=== PATIENT | female | born 1955 | race Caucasian/White ===

== ENCOUNTER → 2018-03-23 | Outpatient (REF) | payer MEDICARE ==
[2018-03-23 13:47] LABS: C REACTIVE PROTEIN QUANTITATIV 1.14 MG/DL (0.00-0.30)
== END ==
LOC: M LAB REF 12:27
DX: K51.913 Ulcerative colitis, unspecified with fistula (principal); K21.9 Gastro-esophageal reflux disease without esophagitis; R13.10 Dysphagia, unspecified
CPT/HCPCS: 86140

== ENCOUNTER → 2018-04-13 | Outpatient (CLI) | payer MEDICARE | LOC: M WHC 11:20 | DX: Z12.31 Encounter for screening mammogram for malignant neoplasm of breast (principal) | CPT/HCPCS: 77067 ==

== ENCOUNTER → 2018-09-12 | Outpatient (REF) | payer MEDICARE ==
[2018-09-12 12:43] LABS: DRVV SCREEN 39.3 SEC
[2018-09-14 00:06] LABS: CARDIOLIPIN IGA ANTIBODY <9 APL U/mL (0-11); CARDIOLIPIN IGG ANTIBODY <9 GPL U/mL (0-14); CARDIOLIPIN IGM ANTIBODY <9 MPL U/mL (0-12); HOMOCYST(E)INE SERUM 8.6 umol/L (0.0-15.0)
[2018-09-14 08:07] LABS: ANTI THROMBIN 3 FUNCT ACTIVITY 109 % (75-135); PROTEIN C FUNCTIONAL ACTIVITY 160 % (73-180); PROTEIN S FUNCTIONAL ACTIVITY 97 % (63-140)
== END ==
LOC: M LAB REF 12:07
PROVIDERS: ATTEND Nurse Practitioner Adult Health
DX: M79.661 Pain in right lower leg (principal); R60.0 Localized edema

== ENCOUNTER → 2018-12-26 | Outpatient (REF) | payer MEDICARE | LOC: M LAB REF 19:12 | PROVIDERS: ATTEND Physician Assistant Medical | DX: M54.5 Low back pain (principal) ==

== ENCOUNTER → 2019-02-26 | Outpatient (REF) | payer MEDICARE ==
[~2019-02-26] MED LIST: ACET-897 PO; ALL10TAB29 PO; AMLO5TAB6 PO; ASPI-1 PO; ASPI81TA85 PO; ATOR1TAB19 PO; ATOR40TA75 PO; CETI5CHW PO; D 101000 PO; ELIQ5TAB PO; FURO20TA2; LISI10TA15 PO; LISI20TA19 PO; OMEP-218 PO; PROAAER10 INH; PROBCAP14 PO; SULF500T2 PO; VITA100066 PO; VITA500C24 PO; XANA0.25 PO
== END ==
LOC: M LAB REF 13:16
PROVIDERS: ATTEND Family Medicine
DX: K51.90 Ulcerative colitis, unspecified, without complications (principal)

== ENCOUNTER → 2019-05-21 | Outpatient (REF) | payer MEDICARE ==
[2019-05-21 13:00] LABS: TOTAL 25(OH) VITAMIN D 35.4 NG/ML (30.0-100.0)
== END ==
LOC: M LAB REF 12:24
PROVIDERS: ATTEND Family Medicine
DX: K21.9 Gastro-esophageal reflux disease without esophagitis (principal); E55.9 Vitamin D deficiency, unspecified; K51.913 Ulcerative colitis, unspecified with fistula

== ENCOUNTER → 2019-06-11 | Outpatient (CLI) | payer MEDICARE ==
[~2019-06-11] MED LIST changes: -AMLO5TAB6 PO; -PROBCAP14 PO; -VITA100066 PO; -VITA500C24 PO; -XANA0.25 PO
--- NOTE | 2019-06-11 13:42 | REPMRS ---
Patient History The patient states she has not had a clinical breast exam in over a year. Family history of colorectal cancer at age 60 in paternal grandfather. Took hormonal contraceptives for 2 years. 3D TOMOSYNTHESIS WAS PERFORMED. [facility] lifetime risk for breast cancer is 6.8%. Digital Woman Screen Mammo: June 11, 2019 - Exam #: [id number] Bilateral CC and MLO view(s) were taken. Technologist: Denise Goldstein, Technologist Prior study comparison: April 13, 2018, bilateral digital woman screen mammo performed at [facility] [place]. March 09, 2016, digital woman screen mammo performed at [facility] [place]. FINDINGS: There are scattered fibroglandular densities. There has been no change in the appearance of the mammogram from the prior studies. There is a mild amount of residual fibroglandular tissue which is fairly symmetric. There is no interval development of dominant mass, architectural distortion, or clustered microcalcification suggestive of malignancy. Assessment: BI-RADS/ACR category 1 mammogram. Negative Mammogram. Recommendation Routine screening mammogram in 1 year (for women over age 40). This mammogram was interpreted with the aid of an FDA-approved computer-aided dectection system. Electronically Signed By: Emilio Slade MD 06/11/19 [id number]
== END ==
LOC: M WHC 12:22
PROVIDERS: ATTEND Family Medicine
DX: Z12.31 Encounter for screening mammogram for malignant neoplasm of breast (principal); Z92.0 Personal history of contraception

== ENCOUNTER 2019-06-12 11:17 | Inpatient (IN) | payer MEDICARE ==
[~2019-06-12] VITALS: Ht 157.5 cm; Wt 88.2 kg
--- NOTE | 2019-06-12 12:07 | REP ---
CT brain: 06/12/2019. Indication: Stroke. Comparison: None. Technique: Unenhanced axial CT images of the brain were obtained from skull base to vertex. Findings: There is no acute intracranial hemorrhage, acute cortical infarction, mass effect or hydrocephalous. Left parietal lobe hypoattenuation/encephalomalacia is present consistent with a remote infarction. Impression: No acute intracranial process. Remote appearing left parietal infarction. Electronically Signed by Zack Clements DO 06/12/2019 11:58 A
[2019-06-12] MEDS ORDERED: ELIQ5TAB PO (12:17)
[2019-06-12] MEDS ORDERED: OMEP-218 PO (12:17)
[2019-06-12] MEDS ORDERED: SULF500T2 PO ×2 (12:17→13:28)
[2019-06-12] MEDS ORDERED: ASPI81TA85 PO (12:17)
[2019-06-12] MEDS ORDERED: LISI10TA15 PO (12:17)
[2019-06-12] MEDS ORDERED: FURO20TA2 (12:17)
[2019-06-12] MEDS ORDERED: CETI5CHW PO (12:17)
[2019-06-12] MEDS ORDERED: PROAAER10 INH (12:17)
[2019-06-12] MEDS ORDERED: ATOR1TAB19 PO (12:17)
[2019-06-12] MEDS ORDERED: D 101000 PO (12:17)
[2019-06-12] MEDS ORDERED: LABETALOL HCL 100 MG/20 ML VIAL IV STA ×2 (12:54→17:57)
[2019-06-12] MEDS ORDERED: ACET-897 PO (13:28)
[2019-06-12] MEDS ORDERED: ALL10TAB29 PO (13:28)
[2019-06-12 13:35] LABS: BASO % 0.4 % (0.0-1.0); EOS # 0.1 10^3/uL (0.0-0.5); EOS % 1.4 % (0.0-3.0); HEMATOCRIT 44.8 % (36.0-47.0); HEMOGLOBIN 14.3 g/dl (12.0-15.5); LYMPH # 1.5 10^3/uL (1.5-5.0); LYMPH % 19.5 % (24.0-44.0); MEAN CORPUSCULAR HGB CONC 31.9 g/dl (32.0-36.5); MEAN CORPUSCULAR VOLUME 87.8 fl (80.0-96.0); MONO # 0.8 10^3/uL (0.0-0.8); MONO % 10.4 % (0.0-5.0); NEUTROPHILS # 5.3 10^3/uL (1.5-8.5); NEUTROPHILS % 67.9 % (36.0-66.0); PLATELET COUNT, AUTOMATED 208 10^3/uL (150-450); WHITE BLOOD COUNT 7.8 10^3/uL (4.0-10.0)
--- NOTE | 2019-06-12 13:38 | REP ---
CHEST, SINGLE VIEW: There is no evidence of acute infiltrate. No pleural effusion is seen. The heart is normal in size. The mediastinal silhouette is unremarkable. The visualized osseous structures are intact. IMPRESSION: No acute pulmonary disease. Electronically Signed by Emilio Slade MD 06/12/2019 04:58 P
[2019-06-12 14:15] LABS: ALT/SGPT 38 U/L (12-78); BILIRUBIN,DIRECT 0.1 MG/DL (0.0-0.2); BILIRUBIN,TOTAL 0.6 MG/DL (0.2-1.0); BLOOD UREA NITROGEN 15 MG/DL (7-18); CALCIUM LEVEL 9.8 MG/DL (8.8-10.2); CARBON DIOXIDE LEVEL 28 MEQ/L (21-32); CHLORIDE LEVEL 101 MEQ/L (98-107); CPK CREATINE PHOSPHOKINASE 136 U/L (26-192); CREATININE FOR GFR 0.81 MG/DL (0.55-1.30); GLOMERULAR FILTRATION RATE > 60.0 (>45); GLUCOSE, FASTING 99 MG/DL (70-100); MB/CK RELATIVE INDEX 0.74 (< OR =4); POTASSIUM SERUM 4.3 MEQ/L (3.5-5.1); SODIUM LEVEL 139 MEQ/L (136-145); TOTAL PROTEIN 8.4 GM/DL (6.4-8.2); TROPONIN I < 0.02 NG/ML (< 0.10)
[2019-06-12] MEDS ORDERED: ATORVASTATIN 20 MG TAB PO ONE (15:45)
[2019-06-12] MEDS ORDERED: ASPIRIN 81 MG CHEW TABLET PO ONE (15:45)
[2019-06-12] MEDS ORDERED: METOPROLOL TART 25 MG TABLET PO PRN (16:00)
[2019-06-12] MEDS ORDERED: MOM 30ML SUSPENSION UDC PO PRN (16:00)
[2019-06-12 16:12] LABS: INR 1.17; PARTIAL THROMBOPLASTIN TIME 28.3 SECONDS (25.0-38.4); PROTHROMBIN TIME 14.6 SECONDS (11.8-14.0)
--- NOTE | 2019-06-12 17:15 | ECGEPIP ---
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
[2019-06-12] MEDS ORDERED: PROHANCE 279.3MG/ML 15ML VIAL (A9576) As Ordered ONE (17:21)
[2019-06-12] MEDS ORDERED: PROHANCE 279.3MG/ML 5ML VIAL (A9576) As Ordered ONE (17:21)
[2019-06-12 18:00] VITALS: BP 182/96
--- NOTE | 2019-06-12 18:44 | HPEPDOC ---
General Date of Admission Jun 12, 2019 at 16:10 Date of Service: Jun 12, 2019 Primary Care Physician: JOSE ARMANDO WILKINS M.D. Other Providers GI: Lizeth Lancaster Attending Physician: STEW GOODMAN MD Chief Complaint The patient is a 63-year-old female admitted with a reason for visit of CVA. History of Present Illness HPI: 63-year-old female presents to the ER with her son and boyfriend in the room. 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 We have no prior records to further clarify this. She reports feeling lower extremity weakness that began after shoveling yesterday around 10 AM, along with pounding suboccipital headache. Per her family, she also had some slurred speech and difficulty finding words and felt numbness in all limbs, extending from home the elbows down and mid calf statin. She reports taking an extra blood pressure pill hoping this would help and went to bed. She awoke the next morning with continued symptoms and now presents to the ER. She reports her symptoms are intermittent without any aggravating or alleviating factors. Denies any similar symptoms in the past. Of note, she does report a recent long immobilization for about 9 hours last month for a trip to [place]. Otherwise, denies any other prolonged immobilizations, recent illnesses, sick contacts, changes in meds. Denies and chest pain, shortness of breath, fevers, chills. In the ER, CT of head revealed a remote left parietal infarct. NIHSS score on admission is 1: mild left arm pronator drift. Also was noted to have significantly elevated blood pressure of 225/98 with mental 140 on admission. She was given 1 dose labetalol, after which she improved. She will be admitted for further workup for possible stroke and hypertensive emergency management. 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 Admits blurred vision, increased drool, suboccipital headache Skin: Denies any rashes or lesions Pulmonary: Denies dyspnea, cough, wheezing Cardiac: Denies chest pain, palpitations, lightheadedness GI: Denies nausea, vomiting, abdominal pain, bowel changes MSK: Denies new pains or joint swelling. Admits b/l LE weakness Neurologic: Admits dysarthria, difficulty word-finding, numbness in all extremities, slurred speech. Denies facial droop, confusion, or visual loss PHYSICAL: General exam: A&Ox3, NAD, resting comfortably, fully conversant HEENT: NCAT, EOMI, PERRLA, anicteric sclera, MMM. Nystagmus right eye, mild strabismus Cardiac: RRR, normal S1 & S2, no murmurs or bruits Respiratory: CTAB, good air exchange, no w/r/r Abdomen: soft, NT, ND, normoactive bowel sounds Extremity: 2+ radial pulse on left, diminshed on right. 2+ b/l dorsalis pedis pulses, no edema or calf tenderness Skin: [place]rober[place], warm, dry, no visible rash Msk: strength 5/5 x4, normal tone & rn hemodialysis charge strength Neuro: normal speech, minimal left arm pronator drift and questionable left tongue deviation. Motor & sensation intact & equal throughout. No facial droop or appreciable slurring of speech. Remainder exam all negative: nml finger to nose, no dysdiadochokinesia, negative Babinski. Nml tandem gait. Negative Romberg. Psych: Normal mood and affect LABORATORY DATA, MICROBIOLOGY: Please see below. IMAGING STUDIES: Head CT: No acute intracranial process. Remote appearing left parietal infarction. CXR: No acute pulmonary disease. ASSESSMENT AND PLAN: This is a 63-year old female with hyperlipidemia, hypertension, history of questionable DVTs and stent in right arm for questionable aneurysm, chronically on Eliquis, ASA 81mg, and low dose statin, p resenting for numbness in all extremities and subjective slurred speech, blurred vision, LE weakness, found to have remote left parietal infarct on CT. 1. ?TIA vs CVA: pt reports neurological symptoms as above, and paresthesia in all limbs. CT notes remote left parietal infarct. Pt has strong family hx of stroke, and denies ever having neurologic issues herself in the past. Despite chronic anticoagulation, still appears to have had a stroke-questionable if this is truly a new event that would explain her current symptoms. Hypercoagulable w/u ordered. MRI/MRA brain & carotids, & echo pending. In meanwhile, monitor neuro checks. Neuro consulted, appreciat input: if indeed an acute stroke, will allow permissive hypertension with systolic 140s to 180s, diastolic below 110. If imaging is negative, will discontinue permissive hypertension, and gradually decrease blood pressure throughout the night. Pending these imaging results, patient may require high-dose aspirin. Statin dose increased. Work with PT & OT for functional optimization. 2. Hypertensive emergency: Patient presented with SBP greater than 200, diastolic greater than 110. Her symptoms may be related to this. Responded well to 10 mg IV labetalol in the ER. Continue monitoring. She is only on lisinopril- hydrochlorothiazide at home, which is continued, and prn po Labetalol added to maintain sbp<180. Likely will require uptitration of regimen. Monitor on tele. 3. ?Hx of DVT & reported stent in the right arm for aneurysm: Continue Eliquis. Pt unsure why she is on it. Will attempt to obtain her [place] records. 4. GERD: Continue PPI 5. Obesity: BMI 35, case care 6. Hyperlipidemia: See aspirin and statin adjustment as above DVT prophylaxis: Chronically on Eliquis DISPOSITION: Admit to general medical floor on hospitalist service. Monitor neuro status and blood pressure. PT & OT. Home Medications Scheduled Apixaban (Eliquis) 5 Mg Tablet, 5 MG PO BID, (Reported) Aspirin (Aspir 81) 81 Mg Tablet.dr, 81 MG PO DAILY, (Reported) Atorvastatin Calcium (Atorvastatin Calcium) 10 Mg Tablet, 10 MG PO DAILY, (Reported) Cetirizine HCl (Cetirizine HCl) 10 Mg Tablet, 5 MG PO DAILY, (Reported) Cholecalciferol (Vitamin D3) (Vitamin D3) 1,000 Unit Capsule, 1,000 UNIT PO DAILY, (Reported) Lisinopril/Hydrochlorothiazide (Lisinopril-Hctz 10-12.5 mg Tab) 1 Each Tablet, 1 TAB PO DAILY, (Reported) Omeprazole (Omeprazole) 20 Mg Capsule., 20 MG PO DAILY, (Reported) Sulfasalazine (Sulfasalazine) 500 Mg Tablet, 500 MG PO DAILY, (Reported) Scheduled PRN Acetaminophen (Tylenol Extra Strength) 500 Mg Tablet, 1,000 MG PO TID PRN for PAIN, (Reported) Albuterol Sulfate (Proair Hfa) 8.5 Gm Hfa.aer.ad, 2 PUFF INH Q6H PRN for SHORTNESS OF BREATH, (Reported) Sulfasalazine (Sulfasalazine) 500 Mg Tablet, 1,000 MG PO TID PRN for FLARE UP, (Reported) Allergies Coded Allergies: Penicillins (Verified Allergy, Unknown, 06/12/19) bee venom protein (honey bee) (Verified Allergy, Unknown, 06/12/19) A-FIB/CHADSVASC A-FIB History Current/History of A-Fib/PAF?: No Current PO Anticoag Therapy: Yes Vital Signs Vital Signs Date Time Temp Pulse Resp B/P (MAP) Pulse Ox O2 Delivery O2 Flow Rate FiO2 06/12/19 17:19 97.3 79 16 204/89 (127) 98 Room Air Laboratory Data Labs 24H Laboratory Tests 2 06/12/19 12:30: Prothrombin Time 14.6H, Prothromb Time International Ratio 1.17, Activated Partial Thromboplast Time 28.3 06/12/19 13:08: Immature Granulocyte % (Auto) 0.4, Neutrophils (%) (Auto) 67.9H, Lymphocytes (%) (Auto) 19.5L, Monocytes (%) (Auto) 10.4H, Eosinophils (%) (Auto) 1.4, Basophils (%) (Auto) 0.4, Neutrophils # (Auto) 5.3, Lymphocytes # (Auto) 1.5, Monocytes # (Auto) 0.8, Eosinophils # (Auto) 0.1, Basophils # (Auto) 0.0, Nucleated Red Blood Cells % (auto) 0.0, Urine Color YELLOW, Urine Appearance CLEAR, Urine pH 7.0, Urine Specific [place] 1.008, Urine Protein NEGATIVE, Urine Glucose (UA) NEGATIVE, Urine Ketones NEGATIVE, Urine Blood NEGATIVE, Urine Nitrite NEGATIVE, Urine Bilirubin NEGATIVE, Urine Urobilinogen 0.2, Urine Leukocyte Esterase NEGATIVE, Urine WBC (Auto) 1, Urine RBC (Auto) 0, Urine Hyaline Casts (Auto) 0, Urine Bacteria (Auto) NEGATIVE, Urine Squamous Epithelial Cells 2, Urine Mucus (Auto) SMALL, Urine Sperm (Auto) , Anion Gap 10, Glomerular Filtration Rate > 60.0, Calcium Level 9.8, Total Bilirubin 0.6, Direct Bilirubin 0.1, Aspartate Amino Transf (AST/SGOT) 34, Alanine Aminotransferase (ALT/SGPT) 38, Alkaline Phosphatase 88, Total Creatine Kinase 136, Creatine Kinase MB 1.0, Creatine Kinase MB Relative Index 0.74, Troponin I < 0.02, Total Protein 8.4H, Albumin 4.0, Albumin/Globulin Ratio 0.91L, Thyroid Stimulating Hormone (TSH) 1.950 CBC/BMP Laboratory Tests 06/12/19 13:08 Plan / VTE VTE Prophylaxis Ordered?: Yes GME ATTESTATION GME ATTESTATION My faculty preceptor for this patient encounter was physically present during the encounter and was fully available. All aspects of the patient interview, examination, medical decision making process, and medical care plan development were reviewed and approved by the faculty preceptor. The faculty preceptor is aware and concurs with the plan as stated in the body of this note and will attest to such by his/her cosignature. ATTENDING NOTE I, Stew Goodman, have independently examined this patient and performed my own physical exam, as well as reviewed the documentation and edited where necessary. I have discussed in detail with the resident / student the findings and plan of treatment as documented by the resident / student and edited their note. I agree with their findings and treatment plan and have edited their documentation. I will continue to follow the patient during this hospital stay. DINAH GUTIERREZ DO Jun 12, 2019 18:44 STEW GOODMAN MD Jun 12, 2019 18:52
--- NOTE | 2019-06-12 18:51 | REPVR ---
PROCEDURE INFORMATION: Exam: MR Angiography Neck Without and With Contrast Exam date and time: 06/12/2019 4:35 PM Age: 63 years old Clinical history: Speech disturbance; Type not specified; Prior surgery; Surgery date: 6+ months; Surgery type: Per PT, stent was placed in RT subclavian, PT could not provide complete history; Additional info: CVA TECHNIQUE: Imaging protocol: Magnetic resonance angiography of the neck without and with intravenous contrast. 3D rendering: MIP reconstructed images were created and reviewed. Contrast material: PROHANCE; Contrast volume: 25 ml; Contrast route: IV; COMPARISON: MRA BRAIN WITH CONTRAST 06/12/2019 5:30 PM FINDINGS: Right common carotid artery: The origin of the right common carotid artery is not visualized, possibly artifactual. The remaining right common carotid artery appears unremarkable. Right internal carotid artery: There is approximately 25% stenosis of the proximal right ICA. Right external carotid artery: Unremarkable. No stenosis. No dissection or occlusion of the origin. Right vertebral artery: The right vertebral artery is congenitally hypoplastic the patent. Left common carotid artery: Unremarkable. No stenosis. No dissection or occlusion. Left internal carotid artery: Unremarkable extracranial segment. No stenosis. No dissection or occlusion. Left external carotid artery: Unremarkable. No stenosis. No dissection or occlusion of the origin. Left vertebral artery: Unremarkable. No stenosis. No dissection or occlusion. Brachiocephalic artery: A portion of the right brachiocephalic artery is not visualized, probably artifactual. The right subclavian artery is patent. IMPRESSION: Approximately 25% stenosis of the proximal right ICA COMMENT: Reference per NASCET criteria for degree of stenosis: Mild: less than 50% stenosis. Moderate: 50-69% stenosis. Severe: 70-94% stenosis. Near occlusion: 95-99% stenosis. Electronically signed by: Ty José On 06/12/2019 18:50:52 PM
--- NOTE | 2019-06-12 18:54 | REPVR ---
PROCEDURE INFORMATION: Exam: MR Angiogram Head Without Contrast, Arteries Exam date and time: 06/12/2019 3:36 PM Age: 63 years old Clinical history: Speech disturbance; Type not specified; Patient HX: HX CVA; Additional info: Neuro SX, infarct on CT TECHNIQUE: Imaging protocol: MR angiogram head without contrast. Exam focused on the arteries. COMPARISON: CT Head without contrast 06/12/2019 11:26 AM FINDINGS: Right internal carotid artery: Intracranial segment is patent with no significant stenosis. No aneurysm. Right anterior cerebral artery: No occlusion or significant stenosis. No aneurysm. Right middle cerebral artery: No occlusion or significant stenosis. No aneurysm. Right posterior cerebral artery: There is persistent origin of the right posterior cerebral artery. Right vertebral artery: The distal right vertebral artery is congenitally hypoplastic but patent. Left internal carotid artery: Intracranial segment is patent with no significant stenosis. No aneurysm. Left anterior cerebral artery: No occlusion or significant stenosis. No aneurysm. Left middle cerebral artery: No occlusion or significant stenosis. No aneurysm. Left posterior cerebral artery: No occlusion or significant stenosis. No aneurysm. Left vertebral artery: No occlusion or significant stenosis. No aneurysm. Basilar artery: No occlusion or significant stenosis. No aneurysm. IMPRESSION: No acute abnormality. Electronically signed by: Ty José On 06/12/2019 18:53:43 PM
--- NOTE | 2019-06-12 18:56 | REPVR ---
PROCEDURE INFORMATION: Exam: MR Head Without Contrast Exam date and time: 06/12/2019 3:36 PM Age: 63 years old Clinical history: Speech disturbance; Unspecified; Patient HX: HX CVA; Additional info: Neuro SX, infarct on CT TECHNIQUE: Imaging protocol: MR of the head without contrast. COMPARISON: CT Head without contrast 06/12/2019 11:26 AM FINDINGS: Brain: There are several small foci of restricted diffusion within the right frontal and parietal lobes. Corresponding decreased signal on the ADC map is present, compatible with acute/subacute infarcts. A chronic left temporo-occipital infarct is present. Minor hemosiderin deposition is noted within the encephalomalacia. There is no acute intracranial hemorrhage, cerebral edema, or midline shift. Age-related cerebral and cerebellar substance loss is present. Scattered increased T2 and FLAIR signal within the pericallosal, periventricular and subcortical white matter is present. This is nonspecific but likely related to chronic microangiopathic ischemic changes and/or chronic demyelinating disease. Ventricles: Mild ex vacuo dilation of the lateral and third ventricles is noted. Bones/joints: Unremarkable. Soft tissues: Unremarkable. Sinuses: Normal as visualized. No acute sinusitis. Mastoid air cells: Normal as visualized. No mastoid effusion. Orbits: Unremarkable. IMPRESSION: 1. Several small acute/subacute infarcts in the right frontal and parietal lobes 2. Chronic findings as discussed above. Electronically signed by: Ty José On 06/12/2019 18:55:54 PM
[2019-06-12] MEDS: APIXABAN 5 MG TAB (ELIQUIS) PO SCH (20:18)
[2019-06-12 22:00] VITALS: BP 131/68
[2019-06-12] MEDS: ACETAMINOPHEN TAB 650MG DOSE (2X325MG) PO PRN (23:58)
[2019-06-13] VITALS (9 sets, daily range): BP systolic 126–170; BP diastolic 62–90
[2019-06-13] MEDS: ACETAMINOPHEN TAB 650MG DOSE (2X325MG) PO PRN ×3 (05:38→21:20)
[2019-06-13 06:52] LABS: HEMATOCRIT 40.5 % (36.0-47.0); HEMOGLOBIN 12.8 g/dl (12.0-15.5); MEAN CORPUSCULAR HEMOGLOBIN 27.9 pg (27.0-33.0); MEAN CORPUSCULAR HGB CONC 31.6 g/dl (32.0-36.5); MEAN CORPUSCULAR VOLUME 88.2 fl (80.0-96.0); PLATELET COUNT, AUTOMATED 193 10^3/uL (150-450); RED BLOOD COUNT 4.59 10^6/uL (4.00-5.40); WHITE BLOOD COUNT 6.7 10^3/uL (4.0-10.0)
[2019-06-13 07:15] LABS: ERYTHROCYTE SEDIMENTATION RATE 14 mm/hr (0-30)
[2019-06-13 07:31] LABS: BLOOD UREA NITROGEN 17 MG/DL (7-18); C REACTIVE PROTEIN QUANTITATIV 0.71 MG/DL (0.00-0.30); CALCIUM LEVEL 9.2 MG/DL (8.8-10.2); CARBON DIOXIDE LEVEL 31 MEQ/L (21-32); CHLORIDE LEVEL 103 MEQ/L (98-107); CHOLESTEROL LEVEL 161 MG/DL (<200); CHOLESTEROL RISK RATIO 3.037 (<5); CREATININE FOR GFR 0.84 MG/DL (0.55-1.30); GLOMERULAR FILTRATION RATE > 60.0 (>45); GLUCOSE, FASTING 122 MG/DL (70-100); HDL CHOLESTEROL 53 MG/DL (>40); LDL CHOLESTEROL 87 MG/DL (<100); NON-HDL-C 108 MG/DL; POTASSIUM SERUM 3.8 MEQ/L (3.5-5.1); SODIUM LEVEL 140 MEQ/L (136-145); TRIGLYCERIDES LEVEL 106 MG/DL (<150)
[2019-06-13] MEDS: OMEPRAZOLE 20 MG CAP PO SCH (08:37)
[2019-06-13] MEDS: hydroCHLOROthiazide 12.5 MG CAPSULE PO SCH ×2 (08:37→10:57)
[2019-06-13] MEDS: APIXABAN 5 MG TAB (ELIQUIS) PO SCH ×2 (08:37→21:13)
[2019-06-13] MEDS: ASPIRIN 325 MG TAB PO SCH (08:37)
[2019-06-13] MEDS: LISINOPRIL 10 MG TAB PO SCH ×2 (08:38→10:57)
[2019-06-13] MEDS ORDERED: CETIRIZINE (ZyrTEC) 5 MG/5 ML UDC DYE FREE PO SCH (09:00)
[2019-06-13] MEDS ORDERED: ASPIRIN 81 MG ENTERIC TAB PO SCH (09:00)
--- NOTE | 2019-06-13 09:26 | CR ---
DATE OF CONSULTATION: 06/13/2019 REFERRING PROVIDER: Dr. Stew Goodman. REASON FOR CONSULTATION: Suspected stroke. The patient is a 63-year-old female with past medical history significant for hypertension, hyperlipidemia, history of ulcerative colitis. The patient was out shoveling, suddenly had symptoms of weakness in her legs and slurred speech. The symptoms were intermittent. The patient was brought to the hospital. The symptoms occurred yesterday. The patient, at the present time was not noted to have a focal neurological deficit. Head CT was reported to show an old left parietal cortical infarct. MRI of the brain has been completed which shows multiple areas of acute to subacute ischemic strokes involving the frontal lobe particular on the right. The patient at home at baseline takes 81 mg of aspirin and also takes Eliquis 5 mg twice a day for an underlying clotting disorder. The patient has a stent her right upper extremity and have history of deep venous thrombosis (DVT) in both lower extremities. The patient does not know much history regarding when the DVT occurred. Prior hypercoagulable workup completed revealed normal protein C, protein S activity as well as negative gene mutations for Factor V and Factor II genes tested. The patient will need the rest of the hypercoagulable workup completed and will need vasculitic workup completed. She remained on Lipitor but we will increase the dose from 10-40 mg daily. The patient will remain on telemetry. Will get MR angiogram of the head and carotids completed as well. The patient did complain of a severe suboccipital intense headache around the time that the symptoms started. Will rule out any dissection. Next the patient was describing a paresthesia in a stocking-glove distribution of the arms and legs, which were intermittent with blurred vision on the right eye intermittently as well. Symptoms started yesterday around 10:00 a.m. REVIEW OF SYSTEMS: 14-point review of systems obtained and is negative except as in the history of present illness (HPI). SOCIAL HISTORY: The patient denies use of any tobacco or illicit drugs and drinks alcohol socially. FAMILY HISTORY: Positive for maternal grandmother and maternal uncle with stroke and multiple family members including sister at the age of 46 with stroke. The patient's blood pressure upon arrival to the hospital was 225/98, which is improved. ALLERGIES: PENICILLIN, bee sting venom. HOME MEDICATIONS: - aspirin 81 mg daily - Lipitor 10 mg daily - Eliquis 5 mg by mouth twice a day. PHYSICAL EXAMINATION: Blood pressure is 178/125, pulse rate 71, respiratory rate is 16, temperature is 98.5 degrees Fahrenheit, oxygenation 98% on room air. The patient is awake, alert, oriented to person, place and time. Speech language comprehension and repetition are intact. Pupils are 3 mm round and reactive to light. Extraocular movements are intact without nystagmus. Sensation V1, V2, V3 is intact to light touch. No facial asymmetry with activation decreased finger particular on the right side. There is no weakness of sternocleidomastoids. Tongue is midline. There is no pronator drift. Strength is 5/5 including bilateral deltoids, biceps, triceps, iliopsoas, quadriceps, anterior tibialis. Deep tendon reflexes are 3s of patellas, 2s at the Achilles, 2s in the upper extremities. Babinski signs are absent. Coordination without any gross ataxia, dysmetria. Gait deferred. ASSESSMENT: MRI evidence of acute subacute strokes in the setting of use of low-dose 81 mg aspirin and Eliquis. PLAN: 1. Continue telemetry monitoring. 2. Physical therapy (PT) and occupational therapy (OT). 3. Agree with increased dose of Lipitor 40 mg daily. Agree with increased dose of aspirin to 325 mg daily. Continuation of Eliquis 5 mg twice a day. 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 Allow for permissive hypertension for the next 48 hours with systolic range between 140-180. 4. The patient can followup in the [facility] outpatient clinic 2-4 weeks after discharge.
[2019-06-13] MEDS ORDERED: PILL CUTTER 1 EACH XX PRN (11:00)
[2019-06-13] MEDS: CETIRIZINE (ZyrTEC) 10 MG TAB PO SCH (11:02)
--- NOTE | 2019-06-13 14:41 | IPNPDOC ---
Text Note Date of Service The patient was seen on 06/13/19. NOTE S: Pt examined at bedside. Reports she feels much better today. Still having mild blurred vision in the right eye and paresthesias in the right hand fingertips. Reports her slurred speech and remaining paresthesias have resolved. Still having a mild suboccipital headache. No reported events overnight. Her blood pressure remains in tolerable range. She has no other complaints today and is looking forward to PT/OT. PE: Vitals: see below General: NAD, A&Ox3, resting comfortably HEENT: NCAT, EOMI, PERRLA, anicteric sclera, MMM. Adenopathy left cervical and supraclavicular chain CV: RRR, no murmurs or clicks or rub. No edema RESP: CTAB, no w/r/r/ ABD: soft, NT, ND. Benign Extremity: 2+ radial pulse on left, diminished on right. 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 Motor & sensation intact & equal throughout. No facial droop or appreciable slurring of speech. 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 1. CVA: MRI of brain revealed several small acute/subacute infarcts in the right frontal and parietal lobes. MRA found only 25% stenosis in the proximal right ICA. Neuro following, appreciate input. Patient feels much improved today with almost full resolution of her symptoms. Neuro checks thus far have been negative. Echo is currently pending as well as hypercoagulable workup. Continue permissive hypertension goal systolic 140s to 180s, diastolic below 110 for 48 hours , then will adjust regimen to further reduce BP. Continue high-dose aspirin and statin. 2. Hypertensive urgency: Managed BP as above 3. ?Hx of DVT & reported stent in the right arm for aneurysm: Continue Eliquis. Pt unsure why she is on it. Awaiting to obtain her [place] records 4. Left neck adenopathy: Patient reports she is in process of working this up with her PCP. Currently otherwise asymptomatic. Unlikely related to her stroke, especially in light of imaging reports. Continue outpatient follow-up For her remaining chronic medical conditions, no changes made. DVT ppx: chronically Eliquis DISPO: work with PT/OT. Monitor on tele & improve bp. Likely d/c home tomorrow. VS,Fishbone, I+O VS, Fishbone, I+O Laboratory Tests 06/12/19 13:08 06/13/19 06:26 Vital Signs Date Time Temp Pulse Resp B/P (MAP) Pulse Ox O2 Delivery O2 Flow Rate FiO2 06/13/19 06:00 97.5 71 19 147/75 (99) 95 Room Air I&O- Last 24 Hours up to 6 AM 06/13/19 06:00 Intake Total 600 ml Output Total 175 ml Balance 425 ml GME ATTESTATION GME ATTESTATION My faculty preceptor for this patient encounter was physically present during the encounter and was fully available. All aspects of the patient interview, examination, medical decision making process, and medical care plan development were reviewed and approved by the faculty preceptor. The faculty preceptor is aware and concurs with the plan as stated in the body of this note and will attest to such by his/her cosignature. ATTENDING NOTE I, Stew Mendez, have independently examined this patient and performed my own physical exam, as well as reviewed the documentation and edited where necessary. I have discussed in detail with the resident / student the findings and plan of treatment as documented by the resident / student and edited their note. I agree with their findings and treatment plan and have edited their documentation. I will continue to follow the patient during this hospital stay. DINAH GUTIERREZ DO Jun 13, 2019 10:40 STEW MENDEZ MD Jun 13, 2019 15:59
[2019-06-14 02:00] VITALS: BP 170/80
[2019-06-14 06:00] VITALS: BP 168/78
[2019-06-14 06:09] LABS: HEMATOCRIT 39.2 % (36.0-47.0); HEMOGLOBIN 12.9 g/dl (12.0-15.5); MEAN CORPUSCULAR HEMOGLOBIN 28.5 pg (27.0-33.0); MEAN CORPUSCULAR HGB CONC 32.9 g/dl (32.0-36.5); MEAN CORPUSCULAR VOLUME 86.7 fl (80.0-96.0); PLATELET COUNT, AUTOMATED 193 10^3/uL (150-450); RED BLOOD COUNT 4.52 10^6/uL (4.00-5.40); WHITE BLOOD COUNT 6.9 10^3/uL (4.0-10.0)
[2019-06-14 06:36] LABS: BLOOD UREA NITROGEN 20 MG/DL (7-18); CARBON DIOXIDE LEVEL 27 MEQ/L (21-32); CHLORIDE LEVEL 104 MEQ/L (98-107); GLOMERULAR FILTRATION RATE > 60.0 (>45); GLUCOSE, FASTING 126 MG/DL (70-100); POTASSIUM SERUM 3.7 MEQ/L (3.5-5.1); SODIUM LEVEL 139 MEQ/L (136-145)
--- NOTE | 2019-06-14 07:19 | ECHO ---
DATE OF PROCEDURE: 06/13/2019 DATE OF : 1955 AGE: 63 REFERRING PROVIDER: Dr. Pepper Ryan PATIENT LOCATION: Room 4227 REASON FOR STUDY: CVA. MEASUREMENTS: IVS: 1.1 cm LV: 4.0 cm LVPW: 1.1 cm LA: 3.5 cm Aorta: 2.7 cm IVC: 1.5 cm DOPPLER MEASUREMENTS: Peak velocity across the aortic valve: 1.7 m/s Peak velocity across the LVOT: 1.4 m/s Mitral E: 0.81 Mitral A: 1.2 Ratio: Less than 1.0 Maximum tricuspid valve velocity: 2.0 m/s 2-D COMMENTS: 1. Normal left ventricular size, wall thickness, and normal global left ventricular systolic function. The estimated ventricular systolic ejection fraction is 60-65%. 2. Normal left atrium. Normal right atrium and right ventricle. 3. The atrial septum appeared to be normal without evidence of defect or shunt. 4. Normal aortic root. 5. No pericardial effusion. 6. Minimally calcified aortic valve with normal leaflet excursion. Minimally calcified mitral annulus with normal anterior mitral valve leaflet motion. Normal tricuspid valve and pulmonic valve. The proximal pulmonary artery branches were not well visualized. 7. The inferior vena cava was normal in size, central venous pressure is most likely normal. DOPPLER: Detects trace aortic radiation, trace mitral regurgitation, and trace tricuspid regurgitation. The calculated pulmonary artery systolic pressure was normal, less than 30 mmHg. Abnormal relaxation pattern was noted across the mitral valve leaflets as well as the mitral valve annulus consistent with features of grade 1 left ventricular diastolic dysfunction. IMPRESSION: 1. Normal global left ventricular systolic function. There are some features of grade 1 left ventricular diastolic dysfunction manifested by abnormal relaxation. 2. Aortic valve sclerosis with trace aortic regurgitation and trivial aortic stenosis. 3. Mitral annulus calcification with trace mitral regurgitation. 4. Trace tricuspid regurgitation with a normal calculated pulmonary artery systolic pressure.
[2019-06-14] MEDS ORDERED: LISI20TA19 PO (08:19)
[2019-06-14] MEDS ORDERED: ASPI-1 PO (08:19)
[2019-06-14] MEDS ORDERED: ATOR40TA75 PO (08:19)
[2019-06-14] MEDS: CETIRIZINE (ZyrTEC) 10 MG TAB PO SCH (08:34)
[2019-06-14] MEDS: APIXABAN 5 MG TAB (ELIQUIS) PO SCH (08:34)
[2019-06-14] MEDS: ASPIRIN 325 MG TAB PO SCH (08:34)
[2019-06-14] MEDS: OMEPRAZOLE 20 MG CAP PO SCH (08:34)
[2019-06-14] MEDS: hydroCHLOROthiazide 12.5 MG CAPSULE PO SCH (08:34)
[2019-06-14] MEDS ORDERED: LISINOPRIL 5 MG TAB PO SCH (09:00)
[2019-06-14 10:00] VITALS: BP 130/72
--- NOTE | 2019-06-14 11:59 | DS.PDOC ---
Discharge Summary General Date of Admission Jun 12, 2019 at 16:10 Date of Discharge 06/14/2019 Primary Care Physician: JOSE ARMANDO WILKINS M.D. Attending Physician: STEW GOODMAN MD Specialist/Consultants Involve: DONI MOSQUERA MD Discharge Summary PROCEDURES PERFORMED DURING STAY: 2D echo DISCHARGE DIAGNOSES: 1. CVA right parietal lobe 2. Hypertensive emergency 3.Grade 1 diastolic dysfunction 4. ?Hx of DVT b/l LE 5. ?Stent in the right arm for aneurysm 6. Chronically on Eliquis-pt unsure why HISTORY OF PRESENT ILLNESS: . 63-year-old female presents to the ER with her son and boyfriend in the room. 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 We have no prior records to further clarify this. She reports feeling lower extremity weakness that began after shoveling yesterday around 10 AM, along with pounding suboccipital headache. Per her family, she also had some slurred speech and difficulty finding words and felt numbness in all limbs, extending from home the elbows down and mid calf down. She reports taking an extra blood pressure pill hoping this would help and went to bed. She awoke the next morning with continued symptoms and now presents to the ER. She reports her symptoms are intermittent without any aggravating or alleviating factors. Denies any similar symptoms in the past. Of note, she does report a recent long immobilization for about 9 hours last month for a trip to [place]. Otherwise, denies any other prolonged immobilizations, recent illnesses, sick contacts, changes in meds. Denies and chest pain, shortness of breath, fevers, chills. In the ER, CT of head revealed a remote left parietal infarct. NIHSS score on admission is 1: mild left arm pronator drift. Also was noted to have significantly elevated blood pressure of 225/98 with mental 140 on admission. She was given 1 dose labetalol, after which she improved. She will be admitted for further workup for possible stroke and hypertensive emergency management. HOSPITAL COURSE: Patient was admitted, permissive hypertension. Neurology consulted and recommended full dose aspirin and increasing statin dose in addition to continuing Eliquis. MRI revealed several small acute subacute infarcts in the right frontal and parietal lobes. Results were discussed in depth with patient and family. During her stay, neuro checks were all negative. She gradually improved in her symptoms. Cleared PT OT and speech therapy. No clear source was found for her strokes. There is suspicion there may be a genetic factor given her strong family history of strokes. Hypercoagulable workup is pending at the time of discharge. Her stroke may also be related to her significantly elevated hypertension on admission. After 48 hours of permissive hypertension, I will sample dose was increased from her normal home dose. She was discharged on full dose aspirin, Lipitor 40 mg, lisinopril-hydrochlorothiazide 2012.5. No other changes to her meds were made. Patient was advised to check her blood pressure daily at local pharmacy, and to follow-up with PCP within a week and with neurology in 2-3 weeks. DISCHARGE MEDICATIONS: Please see below. ALLERGIES: Please see below. PHYSICAL EXAMINATION ON DISCHARGE: VITAL SIGNS: Please see below. General: NAD, A&Ox3, resting comfortably HEENT: NCAT, EOMI, PERRLA, anicteric sclera, MMM. Nontender adenopathy left cervical and supraclavicular chain CV: RRR, no murmurs or clicks or rub. No edema RESP: CTAB, no w/r/r/ ABD: soft, NT, ND. Benign Extremity: 2+ radial pulse on left, diminished on right. 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 Motor & sensation intact & equal throughout. No facial droop or slurring of speech. Remainder exam all negative Psych: Normal mood and affect LABORATORY DATA: Please see below. IMAGING: * 06/12/[address]: No acute intracranial process. Remote appearing left parietal infarction. * 06/12/2019 CXR: No acute pulmonary disease. * 06/12/2019 brain MRI: 1. Several small acute/subacute infarcts in the right frontal and parietal lobes 2. Chronic findings as discussed above. * 06/12/2019 brain MRA: No acute abnormality. * 06/12/2019 carotid MRA: Approximately 25% stenosis of the proximal right ICA * 06/12/2019 2D echo: 1. Normal global left ventricular systolic function. There are some features of grade 1 left ventricular diastolic dysfunction manifested by abnormal relaxation. 2. Aortic valve sclerosis with trace aortic regurgitation and trivial aortic stenosis. 3. Mitral annulus calcification with trace mitral regurgitation. 4. Trace tricuspid regurgitation with a normal calculated pulmonary artery systolic pressure. PROGNOSIS: good ACTIVITY: As tolerated. DIET: 2g sodium DISPOSITION: home DISCHARGE INSTRUCTIONS: 1. Follow-up with PCP within a week 2. Return to ER for emergency DISCHARGE CONDITION: Stable. TIME SPENT ON DISCHARGE: Greater than 35 minutes. Vital Signs/I&Os Vital Signs Date Time Temp Pulse Resp B/P (MAP) Pulse Ox O2 Delivery O2 Flow Rate FiO2 06/14/19 10:00 98.6 72 16 130/72 (91) 95 Room Air I&O- Last 24 Hours up to 6 AM 06/14/19 06:00 Intake Total 2400 ml Output Total 1125 ml Balance 1275 ml Laboratory Data Labs 24H Laboratory Tests 2 06/14/19 05:37: Nucleated Red Blood Cells % (auto) 0.0, Anion Gap 8, Glomerular Filtration Rate > 60.0, Calcium Level 9.0 CBC/BMP Laboratory Tests 06/14/19 05:37 Discharge Medications Scheduled Apixaban (Eliquis) 5 Mg Tablet, 5 MG PO BID, (Reported) Aspirin (Aspirin) 325 Mg Tablet, 325 MG PO DAILY Atorvastatin Calcium (Atorvastatin Calcium) 40 Mg Tablet, 1 TAB PO DAILY Cetirizine HCl (Cetirizine HCl) 10 Mg Tablet, 5 MG PO DAILY, (Reported) Cholecalciferol (Vitamin D3) (Vitamin D3) 1,000 Unit Capsule, 1,000 UNIT PO DAILY, (Reported) Lisinopril/Hydrochlorothiazide (Lisinopril-Hctz 20-12.5 mg Tab) 1 Each Tablet, 1 TAB PO DAILY Omeprazole (Omeprazole) 20 Mg Capsule.dr, 20 MG PO DAILY, (Reported) Sulfasalazine (Sulfasalazine) 500 Mg Tablet, 500 MG PO DAILY, (Reported) Scheduled PRN Acetaminophen (Tylenol Extra Strength) 500 Mg Tablet, 1,000 MG PO TID PRN for PAIN, (Reported) Albuterol Sulfate (Proair Hfa) 8.5 Gm Hfa.aer.ad, 2 PUFF INH Q6H PRN for SHORTNESS OF BREATH, (Reported) Sulfasalazine (Sulfasalazine) 500 Mg Tablet, 1,000 MG PO TID PRN for FLARE UP, (Reported) Allergies Coded Allergies: Penicillins (Verified Allergy, Unknown, 06/12/19) bee venom protein (honey bee) (Verified Allergy, Unknown, 06/12/19) GME ATTESTATION GME ATTESTATION My faculty preceptor for this patient encounter was physically present during the encounter and was fully available. All aspects of the patient interview, examination, medical decision making process, and medical care plan development were reviewed and approved by the faculty preceptor. The faculty preceptor is aware and concurs with the plan as stated in the body of this note and will attest to such by his/her cosignature. ATTENDING NOTE I, Stew Goodman, have independently examined this patient and performed my own physical exam, as well as reviewed the documentation and edited where necessary. I have discussed in detail with the resident / student the findings and plan of treatment as documented by the resident / student and edited their note. I agree with their findings and treatment plan and have edited their documentation. I will continue to follow the patient during this hospital stay. Time spent on discharge 35 minutes DINAH GUTIERREZ DO Jun 14, 2019 11:59 STEW GOODMAN MD Jun 14, 2019 13:26
== END 2019-06-14 11:00 | disposition home or self-care (01) | DRG 66 ==
LOC: M ED 11:17 → M ED INP 16:10 → M MSPAV 18:16
PROVIDERS: ADMIT Internal Medicine; ATTEND Internal Medicine
DX: I63.9 Cerebral infarction, unspecified (principal); I16.0 Hypertensive urgency; I10 Essential (primary) hypertension; E78.5 Hyperlipidemia, unspecified; K21.9 Gastro-esophageal reflux disease without esophagitis; E66.9 Obesity, unspecified; J45.909 Unspecified asthma, uncomplicated; Z96.652 Presence of left artificial knee joint; Z90.49 Acquired absence of other specified parts of digestive tract; Z68.35 Body mass index [BMI] 35.0-35.9, adult; Z79.01 Long term (current) use of anticoagulants; Z79.82 Long term (current) use of aspirin; Z79.899 Other long term (current) drug therapy; Z95.828 Presence of other vascular implants and grafts; Z88.0 Allergy status to penicillin; Z91.030 Bee allergy status; Z86.718 Personal history of other venous thrombosis and embolism

== ENCOUNTER → 2019-07-09 | Outpatient (REF) | payer MEDICARE ==
[~2019-07-09] MED LIST changes: +AMLO5TAB6 PO; +PROBCAP14 PO; +VITA100066 PO; +VITA500C24 PO; +XANA0.25 PO
== END ==
LOC: M LAB REF 18:16
PROVIDERS: ATTEND Otolaryngology
DX: R22.1 Localized swelling, mass and lump, neck (principal)

== ENCOUNTER → 2019-07-16 | Outpatient (CLI) | payer MEDICARE ==
--- NOTE | 2019-07-16 12:37 | REP ---
CT CHEST WITH IV CONTRAST: HISTORY: Localized swelling, mass or lump in the neck. Positive for malignancy, unknown primary. CT CONTRAST DOSE: 100 mL of intravenous Isovue-370. CT FINDINGS: There is supraclavicular lymphadenopathy on the left at the top of the imaging field of view. The largest visualized lymph node measures 16 mm in short axis dimension x 20 mm x 23 mm. Thyroid lobes are normal and homogeneous. No axillary adenopathy is appreciated on either side. No hilar or mediastinal adenopathy is seen. No vascular abnormality is noted in the mediastinum. No pulmonary mass or significant pulmonary nodule is appreciated. Bone window settings, no bony destructive lesion is appreciated. The spleen is not enlarged. IMPRESSION: Suspicious adenopathy in the left supraclavicular lymph node chain. No evidence of intrathoracic malignancy seen. Electronically Signed by Oscar Aguero MD 07/16/2019 01:24 P
--- NOTE | 2019-07-16 13:49 | REP ---
CT ABDOMEN AND PELVIS WITH IV AND ORAL CONTRAST: HISTORY: Malignant lymphadenopathy in the neck, unknown primary. COMPARISON: Abdominal CT study, March 10, 2009. CT CONTRAST DOSE: 100 mL of intravenous Isovue-370. CT FINDINGS: Digital preliminary environmental auditor radiograph is unremarkable. There are clips in the right upper quadrant. There is mild diffuse fatty infiltration of the liver. No focal liver mass lesion is seen. Spleen is normal in size, homogeneous in texture. No adrenal lesion is seen. No abnormality is noted in the pancreas. The common bile duct is normal post cholecystectomy. No renal mass lesion is observed. The kidneys enhance symmetrically and are morphologically intact. However, there is retroperitoneal lymphadenopathy with multiple enlarged lymph nodes in the periaortic lymph node chain. These are largest adjacent to the distal aorta and along the left common iliac artery where there is a lymph node measuring 3.1 x 2.6 cm. There is bilateral iliac adenopathy in the external and internal lymph node chain. There is an enlarged lymph node in the distal external iliac lymph node chain near the inguinal canal measuring 4.9 x 2.4 x 4.9 cm. No mesenteric adenopathy is seen. No large or small bowel lesion is observed. No evidence of obstruction seen. No abdominal wall defect is seen. No uterine or ovarian mass lesion is observed. Urinary bladder is unremarkable. Bone window settings show no bony destructive lesion. IMPRESSION: Moderate periaortic and bilateral iliac lymphadenopathy. Most likely etiologies would be lymphoproliferative disease versus metastatic disease. Post cholecystectomy. Mild fatty infiltration of the liver. Otherwise negative. Electronically Signed by Oscar Aguero MD 07/16/2019 02:55 P
== END ==
LOC: M RAD 08:26
PROVIDERS: ATTEND Otolaryngology
DX: R22.1 Localized swelling, mass and lump, neck (principal)

== ENCOUNTER 2019-07-19 10:57 | Day surgery (SDC) | payer MEDICARE ==
[~2019-07-19] VITALS: Ht 157.5 cm; Wt 85.3 kg
[~2019-07-19 10:57] MED LIST changes: +LACRILUBE (AKWA TEARS) OPHTH OINT 3.5 GM As Ordered ONE; +LIDOCAINE 2% INJ 100 MG/5 ML SDV (FOR ANES.) As Ordered ONE; +LR 1,000 ML IV ONE; +MIDAZOLAM INJ 2 MG/2 ML VIAL (J2250) As Ordered ONE; +ONDANSETRON 4MG/2ML VIAL (J2405) As Ordered ONE; +ROCURONIUM BROMIDE 50 MG/5 ML VIAL As Ordered ONE; +dexameTHASONE 4 MG/ML 1ML VIAL (J1100) As Ordered ONE; +fentaNYL 100 MCG/2 ML INJECTION (J3010) As Ordered ONE; +propofoL 200 MG/20 ML VIAL As Ordered ONE
[2019-07-19] MEDS ORDERED: LIDOCAINE W/EPINEPHRINE 1% 20ML VIAL As Ordered ONE (12:48)
[2019-07-19] MEDS ORDERED: BACITRACIN OINT 30GM As Ordered ONE (12:48)
[2019-07-19] MEDS ORDERED: ACETAMINOPHEN 1000MG 100ML IV BTL (OFIRMEV) (J0131 PER 10MG) As Ordered ONE (13:35)
[2019-07-19] MEDS ORDERED: SUGAMMADEX SODIUM 500 MG/5 ML VIAL (BRIDION) As Ordered ONE (13:37)
[2019-07-19] MEDS: fentaNYL 100 MCG/2 ML INJECTION (J3010) IV PRN ×2 (14:40→14:45)
[2019-07-19] MEDS ORDERED: METOCLOPRAMIDE INJ 10MG/2ML VIAL (J2765) IV PRN (15:00)
[2019-07-19] MEDS ORDERED: LR 1,000 ML IV SCH ×2 (15:00→16:00)
[2019-07-19] MEDS ORDERED: PERCOCET 5MG/325MG TAB PO PRN (15:00)
[2019-07-19] MEDS ORDERED: ONDANSETRON 4MG/2ML VIAL (J2405) IV PRN (15:00)
[2019-07-19] MEDS ORDERED: ACETAMINOPH W/CODEINE #3 TAB UD PO PRN (16:00)
--- NOTE | 2019-07-19 16:16 | RO ---
DATE OF PROCEDURE: 07/19/2019 PREOPERATIVE DIAGNOSIS: Left neck mass, lesion larynx. POSTOPERATIVE DIAGNOSIS: Left neck mass, lesion larynx. PROCEDURE: Excisional biopsy left neck mass and direct laryngoscopy excision lesion vallecula left side. SURGEON: Rangel Ramsey MD GAS UTILITY WORKER: Dr. Anthony Max (He held the retractors and helped do some of the dissection.) ANESTHESIA: FINDINGS: There was a oval tissue in the vallecula on the left side as well as multiple nodes in the neck. I biopsied one of the nodes in the neck. DESCRIPTION OF PROCEDURE: Under general anesthesia, the patient was prepped and draped in the usual manner. I infiltrated the skin with lidocaine with epinephrine. I divided the skin and subcutaneous tissues. I dissected down to the lymph node. Blunt and sharp dissection was used to dissect around the lymph node. There was very little bleeding. The tissue was removed from the neck. There was no bleeding, so I closed the wound with a #4-0 Vicryl, #4-0 Prolene. I inserted the laryngoscope into the mouth. The above findings were seen. With traction on the lesion in vallecula, I then used the scissors to dissect around it. There was very little bleeding. I dissected the lesion free. I did cauterize the base with suction cautery. There was no bleeding at the end of the case. The patient tolerated the procedure well, was extubated and transferred to the recovery room in excellent condition. Edited: 07/19/2019 1627 vlm
[2019-07-19 16:20] VITALS: BP 164/82
== END 2019-07-19 16:44 | disposition home or self-care (01) ==
LOC: M SDC 10:57
PROVIDERS: ATTEND Otolaryngology
DX: C77.0 Secondary and unspecified malignant neoplasm of lymph nodes of head, face and neck (principal); I10 Essential (primary) hypertension; K21.9 Gastro-esophageal reflux disease without esophagitis; E78.00 Pure hypercholesterolemia, unspecified; J45.909 Unspecified asthma, uncomplicated; I73.9 Peripheral vascular disease, unspecified; Z86.718 Personal history of other venous thrombosis and embolism; Z86.73 Personal history of transient ischemic attack (TIA), and cerebral infarction without residual deficits; Z91.030 Bee allergy status; Z88.0 Allergy status to penicillin; Z79.82 Long term (current) use of aspirin; Z79.01 Long term (current) use of anticoagulants; Z79.899 Other long term (current) drug therapy
CPT/HCPCS: 31535; 38510; 88307; J0131; J1100; J2250; J2405; J3010

== ENCOUNTER → 2019-10-03 | Outpatient (CLI) | payer MEDICARE ==
[~2019-10-03] MED LIST changes: -LACRILUBE (AKWA TEARS) OPHTH OINT 3.5 GM As Ordered ONE; -LIDOCAINE 2% INJ 100 MG/5 ML SDV (FOR ANES.) As Ordered ONE; -LR 1,000 ML IV ONE; -MIDAZOLAM INJ 2 MG/2 ML VIAL (J2250) As Ordered ONE; -ONDANSETRON 4MG/2ML VIAL (J2405) As Ordered ONE; -ROCURONIUM BROMIDE 50 MG/5 ML VIAL As Ordered ONE; -dexameTHASONE 4 MG/ML 1ML VIAL (J1100) As Ordered ONE; -fentaNYL 100 MCG/2 ML INJECTION (J3010) As Ordered ONE; -propofoL 200 MG/20 ML VIAL As Ordered ONE
[2019-10-03 12:54] LABS: ALBUMIN 3.7 GM/DL (3.2-5.2); ALT/SGPT 35 U/L (12-78); BILIRUBIN,TOTAL 0.4 MG/DL (0.2-1.0); BLOOD UREA NITROGEN 20 MG/DL (7-18); CALCIUM LEVEL 9.5 MG/DL (8.8-10.2); CARBON DIOXIDE LEVEL 31 MEQ/L (21-32); CHLORIDE LEVEL 99 MEQ/L (98-107); CREATININE FOR GFR 0.94 MG/DL (0.55-1.30); GLOMERULAR FILTRATION RATE > 60.0 (>45); GLUCOSE, FASTING 117 MG/DL (70-100); MAGNESIUM LEVEL 2.3 MG/DL (1.8-2.4); POTASSIUM SERUM 3.9 MEQ/L (3.5-5.1); SODIUM LEVEL 138 MEQ/L (136-145); TOTAL PROTEIN 7.3 GM/DL (6.4-8.2)
[2019-10-03 12:56] LABS: BASO % 0.2 % (0.0-1.0); EOS % 0.2 % (0.0-3.0); HEMATOCRIT 32.9 % (36.0-47.0); HEMOGLOBIN 10.7 g/dl (12.0-15.5); LYMPH # 1.5 10^3/uL (1.5-5.0); LYMPH % 27.4 % (24.0-44.0); MEAN CORPUSCULAR HEMOGLOBIN 29.4 pg (27.0-33.0); MEAN CORPUSCULAR HGB CONC 32.5 g/dl (32.0-36.5); MEAN CORPUSCULAR VOLUME 90.4 fl (80.0-96.0); MONO # 0.9 10^3/uL (0.0-0.8); MONO % 15.9 % (0.0-5.0); NEUTROPHILS % 55.7 % (36.0-66.0); PLATELET COUNT, AUTOMATED 157 10^3/uL (150-450); RED BLOOD COUNT 3.64 10^6/uL (4.00-5.40); WHITE BLOOD COUNT 5.4 10^3/uL (4.0-10.0)
[2019-10-04 14:06] LABS: HE4 98.7 pmol/L (0.0-96.5)
== END ==
LOC: M LABDRWAD 08:17
PROVIDERS: ATTEND Obstetrics & Gynecology Gynecologic Oncology
DX: C80.1 Malignant (primary) neoplasm, unspecified (principal)

== ENCOUNTER → 2019-10-24 | Outpatient (REF) | payer MEDICARE ==
[2019-10-24 13:54] LABS: MAGNESIUM LEVEL 1.9 MG/DL (1.8-2.4)
[2019-10-24 13:58] LABS: BASO % 0.2 % (0.0-1.0); EOS % 0.2 % (0.0-3.0); HEMATOCRIT 31.4 % (36.0-47.0); HEMOGLOBIN 10.2 g/dl (12.0-15.5); LYMPH # 1.7 10^3/uL (1.5-5.0); LYMPH % 31.4 % (24.0-44.0); MEAN CORPUSCULAR HEMOGLOBIN 30.5 pg (27.0-33.0); MEAN CORPUSCULAR HGB CONC 32.5 g/dl (32.0-36.5); MONO # 0.8 10^3/uL (0.0-0.8); MONO % 14.7 % (0.0-5.0); NEUTROPHILS # 2.9 10^3/uL (1.5-8.5); NEUTROPHILS % 52.9 % (36.0-66.0); PLATELET COUNT, AUTOMATED 115 10^3/uL (150-450); RED BLOOD COUNT 3.34 10^6/uL (4.00-5.40); WHITE BLOOD COUNT 5.4 10^3/uL (4.0-10.0)
[2019-10-26 08:57] LABS: CA 125 8.4 U/ML (<30.2)
[2019-10-26 14:06] LABS: HE4 78.4 pmol/L (0.0-96.5)
== END ==
LOC: M LABDRWAD 12:16
PROVIDERS: ATTEND Obstetrics & Gynecology Gynecologic Oncology
DX: C80.1 Malignant (primary) neoplasm, unspecified (principal)

== ENCOUNTER → 2019-10-24 | Outpatient (REF) | payer MEDICARE ==
[2019-10-24 12:53] LABS: ALBUMIN 3.8 GM/DL (3.2-5.2); ALT/SGPT 34 U/L (12-78); BILIRUBIN,TOTAL 0.4 MG/DL (0.2-1.0); BLOOD UREA NITROGEN 22 MG/DL (7-18); CALCIUM LEVEL 9.4 MG/DL (8.8-10.2); CARBON DIOXIDE LEVEL 29 MEQ/L (21-32); CHLORIDE LEVEL 102 MEQ/L (98-107); CHOLESTEROL LEVEL 262 MG/DL (<200); CHOLESTEROL RISK RATIO 4.678 (<5); GLOMERULAR FILTRATION RATE > 60.0 (>45); GLUCOSE, FASTING 116 MG/DL (70-100); HDL CHOLESTEROL 56 MG/DL (>40); LDL CHOLESTEROL 159 MG/DL (<100); NON-HDL-C 206 MG/DL; POTASSIUM SERUM 4.1 MEQ/L (3.5-5.1); SODIUM LEVEL 140 MEQ/L (136-145); TOTAL PROTEIN 7.7 GM/DL (6.4-8.2); TRIGLYCERIDES LEVEL 235 MG/DL (<150)
== END ==
LOC: M LABDRWAD 12:10
PROVIDERS: ATTEND Family Medicine
DX: I10 Essential (primary) hypertension (principal); E78.00 Pure hypercholesterolemia, unspecified; E03.9 Hypothyroidism, unspecified

== ENCOUNTER → 2019-11-20 | Outpatient (REF) | payer MEDICARE ==
[~2019-11-20] MED LIST changes: -ALL10TAB29 PO; +AMLO1TAB24 PO; -AMLO5TAB6 PO; -ASPI81TA85 PO; +ASPI81TA86 PO; +CETI-24 PO; +ECOT81TA5 PO; +FAMO1TAB25 PO; +LIPI10TA PO; -LISI20TA19 PO; +LISI20TA35 PO
[2019-11-20 14:04] LABS: BASO % 0.4 % (0.0-1.0); EOS % 0.4 % (0.0-3.0); HEMATOCRIT 29.7 % (36.0-47.0); HEMOGLOBIN 9.9 g/dl (12.0-15.5); LYMPH # 1.8 10^3/uL (1.5-5.0); LYMPH % 34.1 % (24.0-44.0); MEAN CORPUSCULAR HEMOGLOBIN 33.1 pg (27.0-33.0); MEAN CORPUSCULAR HGB CONC 33.3 g/dl (32.0-36.5); MEAN CORPUSCULAR VOLUME 99.3 fl (80.0-96.0); MONO # 0.7 10^3/uL (0.0-0.8); NEUTROPHILS # 2.8 10^3/uL (1.5-8.5); NEUTROPHILS % 51.9 % (36.0-66.0); PLATELET COUNT, AUTOMATED 211 10^3/uL (150-450); RED BLOOD COUNT 2.99 10^6/uL (4.00-5.40); WHITE BLOOD COUNT 5.4 10^3/uL (4.0-10.0)
[2019-11-20 14:25] LABS: ALBUMIN 3.8 GM/DL (3.2-5.2); BILIRUBIN,TOTAL 0.3 MG/DL (0.2-1.0); CALCIUM LEVEL 9.6 MG/DL (8.8-10.2); CREATININE FOR GFR 0.99 MG/DL (0.55-1.30); GLOMERULAR FILTRATION RATE 59.7 (>45); MAGNESIUM LEVEL 1.9 MG/DL (1.8-2.4); POTASSIUM SERUM 4.1 MEQ/L (3.5-5.1); TOTAL PROTEIN 7.2 GM/DL (6.4-8.2)
[2019-11-20 14:54] LABS: CA 125 6.1 U/ML (<30.2)
[2019-11-22 00:09] LABS: HE4 82.4 pmol/L (0.0-96.5)
== END ==
LOC: M LABDRWAD 12:49
PROVIDERS: ATTEND Obstetrics & Gynecology Gynecologic Oncology
DX: Z01.818 Encounter for other preprocedural examination (principal)

== ENCOUNTER → 2019-12-18 | Outpatient (REF) | payer MEDICARE ==
[~2019-12-18] MED LIST changes: +ALL10TAB29 PO; -AMLO1TAB24 PO; +AMLO5TAB6 PO; +ASPI81TA85 PO; -ASPI81TA86 PO; -CETI-24 PO; -ECOT81TA5 PO; -FAMO1TAB25 PO; -LIPI10TA PO; +LISI20TA19 PO; -LISI20TA35 PO
[2019-12-18 13:25] LABS: ALBUMIN 3.8 GM/DL (3.2-5.2); ALT/SGPT 29 U/L (12-78); BASO % 0.4 % (0.0-1.0); BILIRUBIN,TOTAL 0.3 MG/DL (0.2-1.0); BLOOD UREA NITROGEN 23 MG/DL (7-18); CALCIUM LEVEL 9.6 MG/DL (8.8-10.2); CARBON DIOXIDE LEVEL 31 MEQ/L (21-32); CHLORIDE LEVEL 102 MEQ/L (98-107); CREATININE FOR GFR 0.86 MG/DL (0.55-1.30); EOS # 0.4 10^3/uL (0.0-0.5); EOS % 4.9 % (0.0-3.0); GLOMERULAR FILTRATION RATE > 60.0 (>45); GLUCOSE, FASTING 87 MG/DL (70-100); HEMOGLOBIN 10.6 g/dl (12.0-15.5); LYMPH % 28.5 % (24.0-44.0); MAGNESIUM LEVEL 2.1 MG/DL (1.8-2.4); MEAN CORPUSCULAR HEMOGLOBIN 32.7 pg (27.0-33.0); MEAN CORPUSCULAR HGB CONC 32.1 g/dl (32.0-36.5); MEAN CORPUSCULAR VOLUME 101.9 fl (80.0-96.0); MONO # 1.1 10^3/uL (0.0-0.8); MONO % 15.7 % (0.0-5.0); NEUTROPHILS # 3.5 10^3/uL (1.5-8.5); NEUTROPHILS % 49.9 % (36.0-66.0); PLATELET COUNT, AUTOMATED 194 10^3/uL (150-450); POTASSIUM SERUM 4.5 MEQ/L (3.5-5.1); RED BLOOD COUNT 3.24 10^6/uL (4.00-5.40); SODIUM LEVEL 137 MEQ/L (136-145); TOTAL PROTEIN 7.3 GM/DL (6.4-8.2); WHITE BLOOD COUNT 7.1 10^3/uL (4.0-10.0)
[2019-12-18 14:02] LABS: CA 125 7.9 U/ML (<30.2)
[2019-12-19 13:07] LABS: HE4 69.1 pmol/L (0.0-96.5)
== END ==
LOC: M LABDRWAD 12:53
DX: Z01.818 Encounter for other preprocedural examination (principal)

== ENCOUNTER → 2020-01-08 | Outpatient (REF) | payer MEDICARE ==
[2020-01-08 13:30] LABS: BASO % 0.2 % (0.0-1.0); EOS % 0.2 % (0.0-3.0); HEMATOCRIT 29.8 % (36.0-47.0); HEMOGLOBIN 9.8 g/dl (12.0-15.5); LYMPH # 1.7 10^3/uL (1.5-5.0); MEAN CORPUSCULAR HEMOGLOBIN 33.2 pg (27.0-33.0); MEAN CORPUSCULAR HGB CONC 32.9 g/dl (32.0-36.5); MONO # 0.8 10^3/uL (0.0-0.8); MONO % 15.4 % (0.0-5.0); NEUTROPHILS # 2.8 10^3/uL (1.5-8.5); NEUTROPHILS % 51.8 % (36.0-66.0); PLATELET COUNT, AUTOMATED 160 10^3/uL (150-450); RED BLOOD COUNT 2.95 10^6/uL (4.00-5.40); WHITE BLOOD COUNT 5.4 10^3/uL (4.0-10.0)
[2020-01-08 13:55] LABS: ALBUMIN 3.8 GM/DL (3.2-5.2); BILIRUBIN,TOTAL 0.3 MG/DL (0.2-1.0); CALCIUM LEVEL 9.5 MG/DL (8.8-10.2); CREATININE FOR GFR 1.02 MG/DL (0.55-1.30); GLOMERULAR FILTRATION RATE 57.7 (>45); MAGNESIUM LEVEL 1.7 MG/DL (1.8-2.4); POTASSIUM SERUM 4.1 MEQ/L (3.5-5.1); TOTAL PROTEIN 7.2 GM/DL (6.4-8.2)
[2020-01-08 14:46] LABS: CA 125 8.6 U/ML (<30.2)
[2020-01-09 14:14] LABS: HE4 78.7 pmol/L (0.0-96.5)
== END ==
LOC: M LABDRWAD 12:33
PROVIDERS: ATTEND Obstetrics & Gynecology
DX: C80.1 Malignant (primary) neoplasm, unspecified (principal)

== ENCOUNTER → 2020-02-21 | Outpatient (CLI) | payer MEDICARE ==
[~2020-02-21] MED LIST changes: -ALL10TAB29 PO; +AMLO1TAB24 PO; -AMLO5TAB6 PO; -ASPI81TA85 PO; +ASPI81TA86 PO; +CETI-24 PO; -LISI20TA19 PO; +LISI20TA35 PO
[2020-03-26 10:54] LABS: INR 1.01; PARTIAL THROMBOPLASTIN TIME 30.9 SECONDS (25.0-38.4); PROTHROMBIN TIME 13.5 SECONDS (11.8-14.0)
[2020-03-26 13:16] LABS: BASO % 0.4 % (0.0-1.0); EOS # 0.1 10^3/uL (0.0-0.5); HEMATOCRIT 32.1 % (36.0-47.0); HEMOGLOBIN 10.7 g/dl (12.0-15.5); LYMPH # 1.6 10^3/uL (1.5-5.0); LYMPH % 30.8 % (24.0-44.0); MEAN CORPUSCULAR HEMOGLOBIN 32.7 pg (27.0-33.0); MEAN CORPUSCULAR HGB CONC 33.3 g/dl (32.0-36.5); MEAN CORPUSCULAR VOLUME 98.2 fl (80.0-96.0); MONO # 0.8 10^3/uL (0.0-0.8); MONO % 15.2 % (0.0-5.0); NEUTROPHILS # 2.6 10^3/uL (1.5-8.5); PLATELET COUNT, AUTOMATED 181 10^3/uL (150-450); RED BLOOD COUNT 3.27 10^6/uL (4.00-5.40); WHITE BLOOD COUNT 5.1 10^3/uL (4.0-10.0)
== END ==
LOC: M LAB 09:20
PROVIDERS: ATTEND Obstetrics & Gynecology
DX: Z01.818 Encounter for other preprocedural examination (principal)

== ENCOUNTER 2020-05-31 23:12 | Emergency (ER) | payer MEDICARE ==
[~2020-05-31] VITALS: Ht 154.9 cm; Wt 94.1 kg
[2020-05-31] MEDS ORDERED: FAMO1TAB25 PO (23:48)
[2020-05-31] MEDS ORDERED: ECOT81TA5 PO (23:48)
[2020-05-31] MEDS ORDERED: LIPI10TA PO (23:48)
[2020-06-01] MEDS ORDERED: LIDOCAINE 1% MDV 20ML VIAL INFIL ONE (00:30)
[2020-06-01 01:00] VITALS: BP 160/85
== END 2020-06-01 01:02 | disposition home or self-care (01) ==
LOC: M ED 23:12
DX: S90.852A Superficial foreign body, left foot, initial encounter (principal); W45.8XXA Other foreign body or object entering through skin, initial encounter; Y92.098 Other place in other non-institutional residence as the place of occurrence of the external cause; Y93.01 Activity, walking, marching and hiking; Y99.8 Other external cause status; Z88.0 Allergy status to penicillin; Z91.030 Bee allergy status

== ENCOUNTER → 2020-06-12 | Outpatient (CLI) | payer MEDICARE ==
[~2020-06-12] MED LIST changes: +ECOT81TA5 PO; +FAMO1TAB25 PO; +LIPI10TA PO
--- NOTE | 2020-06-12 11:45 | REPMRS ---
Patient History The patient states she has not had a clinical breast exam in over a year. Patient is postmenopausal and has history of endometrial cancer at age 64. Family history of colorectal cancer at age 60 in paternal grandfather. Took hormonal contraceptives for 2 years. Digital Woman Screen Mammo: June 12, 2020 - Exam #: [id number] Bilateral CC and MLO view(s) were taken. Technologist: Marion Gastelum Technologist Prior study comparison: June 11, 2019, bilateral digital woman screen mammo performed at [facility]. April 13, 2018, bilateral digital woman screen mammo performed at [facility]. March 09, 2016, digital woman screen mammo performed at [facility]. FINDINGS: The breast tissue is almost entirely fat. The Volpara volumetric breast density category is: A. There has been no change in the appearance of the mammogram from the prior studies. There is no interval development of dominant mass, architectural distortion, or grouped microcalcification typical of malignancy. 3-D tomosynthesis shows no additional findings. Assessment: BI-RADS/ACR category 1 mammogram. Negative Mammogram. Recommendation Routine screening mammogram of both breasts in 1 year (for women over age 40). This patient's [facility] Lifetime Breast Cancer RIsk is estimated at 6.4 %. This mammogram was interpreted with the aid of an FDA-approved computer-aided dectection system. Electronically Signed By: Max Aguero MD 06/12/20 [id number]
== END ==
LOC: M WHC 09:08
PROVIDERS: ATTEND Family Medicine
DX: Z12.31 Encounter for screening mammogram for malignant neoplasm of breast (principal); Z80.0 Family history of malignant neoplasm of digestive organs

== ENCOUNTER → 2020-06-12 | Outpatient (REF) | payer MEDICARE ==
[2020-06-14 14:07] LABS: HE4 60.2 pmol/L (0.0-96.5)
== END ==
LOC: M LABDRWAD 12:37
PROVIDERS: ATTEND Obstetrics & Gynecology
DX: C80.1 Malignant (primary) neoplasm, unspecified (principal)

== ENCOUNTER → 2020-06-23 | Outpatient (CLI) | payer SELFPAY | LOC: M LABSMTC 14:03 | PROVIDERS: ATTEND Pediatrics | DX: Z20.828 Contact with and (suspected) exposure to other viral communicable diseases (principal) ==

== ENCOUNTER → 2020-09-30 | Outpatient (REF) | payer MEDICARE ==
[2020-10-02 14:09] LABS: HE4 60.5 pmol/L (0.0-96.5)
== END ==
LOC: M LABDRWAD 12:37
PROVIDERS: ATTEND Obstetrics & Gynecology
DX: C80.1 Malignant (primary) neoplasm, unspecified (principal)

== ENCOUNTER → 2020-11-07 | Outpatient (CLI) | payer MEDICARE ==
--- NOTE | 2020-11-07 13:26 | REP ---
INDICATION: RT THYROID NODULE. COMPARISON: CT neck soft tissues 06/29/2019. TECHNIQUE: Real-time sonographic evaluation of thyroid performed. FINDINGS: Right lobe measures 4.9 x 1.9 x 1.1 cm and left lobe 4.0 x 1.6 x 1.6 cm. In the mid right lobe 2 heterogeneous hypoechoic nodules measure 7 x 3 x 6 mm and 8 x 6 x 6 mm. In the right lower pole there is a complex cystic structure mild wall thickening and a small mural calcification, measuring 1.1 x 0.8 x 1.0 cm. In the mid left lobe 2 hypoechoic nodules are visualized measuring 4 mm and 6 mm in maximum diameter. IMPRESSION: Bilateral subcentimeter solid nodules, there is also a mildly complex cyst in the right lower pole with a maximum diameter of 1.1 cm. According to TI-RADS criteria the solid nodules are category TR 4, but since they are less than 1 cm in diameter, they are not suspicious and no follow-up is needed. <Electronically signed by Emilio Slade > 11/07/20 2097
== END ==
LOC: M RAD 12:35
PROVIDERS: ATTEND Family Medicine
DX: E04.1 Nontoxic single thyroid nodule (principal)

== ENCOUNTER → 2020-12-01 | Outpatient (CLI) | payer MEDICARE ==
--- NOTE | 2020-12-01 14:30 | DEXAMM ---
INDICATION: M85.80 [facility] DISRD OF BONE DENSITY AND STRUCTURE. COMPARISON: Comparison densitometry study May 21, 2005.. TECHNIQUE: Bone density was measured using dual-energy x-ray absorptionmetry (DEXA). FINDINGS: AP SPINE L1-L4 BMD 1.286 g/cm2 Young Adult T-Score 60.7 Age Matched Z-Score 2.4. LT FEMUR, TOTAL BMD 0.901 g/cm2 Young Adult T-Score -0.8 Age Matched Z-Score 0.5. LT NECK BMD 0.780 g/cm2 Young Adult T-Score 4-1.9 Age Matched Z-Score -0.3. RT FEMUR, TOTAL BMD 0.964 g/cm2 Young Adult T-Score -0.3 Age Matched Z-Score 1.0. RT NECK BMD 0.811 g/cm2 Young Adult T-Score -1.6 Age Matched Z-Score -0.1. IMPRESSION: There is normal bone density of the spine. There is low bone density of the left hip. There is low bone density of the right hip. The density of the spine has increased 0.3% since the initial exam on May 21, 2005. The density of the left hip has decreased 10.1% since initial exam on May 21, 2005. The density of the right hip has decreased 11.6% since the initial exam on May 21, 2005. FOLLOW-UP: Recommendation for the next bone density exam: 2 years. <Electronically signed by Max Aguero > 12/01/20 [id number]
== END ==
LOC: M WHC 13:20
PROVIDERS: ATTEND Family Medicine
DX: M81.0 Age-related osteoporosis without current pathological fracture (principal)

== ENCOUNTER → 2021-01-06 | Outpatient (REF) | payer MEDICARE ==
[~2021-01-06] MED LIST changes: +FAMO10TA50 PO; -FAMO1TAB25 PO
== END ==
LOC: M LABDRWAD 12:51
PROVIDERS: ATTEND Obstetrics & Gynecology
DX: C48.2 Malignant neoplasm of peritoneum, unspecified (principal)

== ENCOUNTER → 2021-02-04 | Outpatient (REF) | payer MEDICARE | LOC: M LABDRWAD 17:34 | PROVIDERS: ATTEND Obstetrics & Gynecology | DX: C48.2 Malignant neoplasm of peritoneum, unspecified (principal) ==

== ENCOUNTER → 2021-03-10 | Outpatient (REF) | payer MEDICARE | LOC: M LABDRWAD 12:38 | PROVIDERS: ATTEND Obstetrics & Gynecology | DX: C48.2 Malignant neoplasm of peritoneum, unspecified (principal) ==

== ENCOUNTER → 2021-04-30 | Outpatient (REF) | payer MEDICARE | LOC: M LABDRWAD 16:27 | PROVIDERS: ATTEND Obstetrics & Gynecology | DX: C48.2 Malignant neoplasm of peritoneum, unspecified (principal) ==

== ENCOUNTER → 2021-05-25 | Outpatient (REF) | payer MEDICARE | LOC: M LABDRWAD 13:15 | PROVIDERS: ATTEND Obstetrics & Gynecology | DX: C48.2 Malignant neoplasm of peritoneum, unspecified (principal) ==

== ENCOUNTER → 2021-05-28 | Outpatient (REF) | payer MEDICARE ==
[2021-05-28 16:42] LABS: BLOOD UREA NITROGEN 20 MG/DL (7-18); CALCIUM LEVEL 9.5 MG/DL (8.8-10.2); CARBON DIOXIDE LEVEL 32 MEQ/L (21-32); CHLORIDE LEVEL 100 MEQ/L (98-107); CREATININE FOR GFR 0.96 MG/DL (0.55-1.30); GLOMERULAR FILTRATION RATE > 60.0 (>45); GLUCOSE, FASTING 106 MG/DL (70-100); POTASSIUM SERUM 3.5 MEQ/L (3.5-5.1); SODIUM LEVEL 138 MEQ/L (136-145)
== END ==
LOC: M LABDRWAD 15:53
PROVIDERS: ATTEND Obstetrics & Gynecology
DX: C80.1 Malignant (primary) neoplasm, unspecified (principal)

== ENCOUNTER → 2021-06-19 | Outpatient (REF) | payer MEDICARE ==
[~2021-06-19] MED LIST changes: -LISI10TA15 PO; +LISI10TA24 PO; +OMEP-173 PO; -OMEP-218 PO
== END ==
LOC: M LAB REF 12:22
PROVIDERS: ATTEND Family Medicine
DX: R30.0 Dysuria (principal); R10.30 Lower abdominal pain, unspecified

== ENCOUNTER → 2021-06-23 | Outpatient (REF) | payer MEDICARE ==
[2021-06-23 17:40] LABS: INR 1.07; PROTHROMBIN TIME 14.3 SECONDS (12.7-14.5)
[2021-06-23 17:51] LABS: BASO % 0.4 % (0.0-1.0); EOS # 0.3 10^3/uL (0.0-0.5); EOS % 3.9 % (0.0-3.0); HEMATOCRIT 37.6 % (36.0-47.0); HEMOGLOBIN 12.1 g/dl (12.0-15.5); LYMPH # 2.3 10^3/uL (1.5-5.0); LYMPH % 28.5 % (24.0-44.0); MEAN CORPUSCULAR HEMOGLOBIN 28.6 pg (27.0-33.0); MEAN CORPUSCULAR HGB CONC 32.2 g/dl (32.0-36.5); MEAN CORPUSCULAR VOLUME 88.9 fl (80.0-96.0); MONO # 0.7 10^3/uL (0.0-0.8); MONO % 9.3 % (2.0-8.0); NEUTROPHILS # 4.6 10^3/uL (1.5-8.5); NEUTROPHILS % 57.6 % (36.0-66.0); PLATELET COUNT, AUTOMATED 190 10^3/uL (150-450); RED BLOOD COUNT 4.23 10^6/uL (4.00-5.40)
== END ==
LOC: M LABDRWAD 16:58
PROVIDERS: ATTEND Obstetrics & Gynecology
DX: C48.2 Malignant neoplasm of peritoneum, unspecified (principal)

== ENCOUNTER → 2021-07-06 | Outpatient (REF) | LOC: M LABSMTC 13:26 | PROVIDERS: ATTEND Pediatrics | DX: Z20.822 Contact with and (suspected) exposure to COVID-19 (principal) ==

== ENCOUNTER → 2021-08-03 | Outpatient (REF) | payer MEDICARE ==
[2021-08-03 13:12] LABS: BASO % 0.5 % (0.0-1.0); EOS # 0.3 10^3/uL (0.0-0.5); EOS % 3.8 % (0.0-3.0); HEMATOCRIT 36.5 % (36.0-47.0); HEMOGLOBIN 11.7 g/dl (12.0-15.5); LYMPH # 1.7 10^3/uL (1.5-5.0); LYMPH % 21.8 % (24.0-44.0); MEAN CORPUSCULAR HEMOGLOBIN 28.8 pg (27.0-33.0); MEAN CORPUSCULAR HGB CONC 32.1 g/dl (32.0-36.5); MEAN CORPUSCULAR VOLUME 89.9 fl (80.0-96.0); MONO # 0.9 10^3/uL (0.0-0.8); NEUTROPHILS # 4.7 10^3/uL (1.5-8.5); NEUTROPHILS % 61.3 % (36.0-66.0); PLATELET COUNT, AUTOMATED 184 10^3/uL (150-450); RED BLOOD COUNT 4.06 10^6/uL (4.00-5.40); WHITE BLOOD COUNT 7.7 10^3/uL (4.0-10.0)
[2021-08-03 13:28] LABS: INR 0.98; PARTIAL THROMBOPLASTIN TIME 29.7 SECONDS (25.9-37.0); PROTHROMBIN TIME 13.4 SECONDS (12.7-14.5)
[2021-08-03 13:41] LABS: ALBUMIN 3.6 GM/DL (3.2-5.2); ALT/SGPT 27 U/L (12-78); BILIRUBIN,TOTAL 0.4 MG/DL (0.2-1.0); BLOOD UREA NITROGEN 17 MG/DL (7-18); CALCIUM LEVEL 9.1 MG/DL (8.8-10.2); CARBON DIOXIDE LEVEL 27 MEQ/L (21-32); CHLORIDE LEVEL 106 MEQ/L (98-107); CREATININE FOR GFR 0.82 MG/DL (0.55-1.30); GLOMERULAR FILTRATION RATE > 60.0 (>45); GLUCOSE, FASTING 127 MG/DL (70-100); LDH LACTATE DEHYDROGENASE 199 U/L (84-246); MAGNESIUM LEVEL 1.9 MG/DL (1.8-2.4); POTASSIUM SERUM 3.6 MEQ/L (3.5-5.1); SODIUM LEVEL 138 MEQ/L (136-145); TOTAL PROTEIN 7.2 GM/DL (6.4-8.2)
[2021-08-03 14:19] LABS: CA 125 29.1 U/ML (<30.2)
== END ==
LOC: M LAB REF 12:56
PROVIDERS: ATTEND Obstetrics & Gynecology
DX: C57.9 Malignant neoplasm of female genital organ, unspecified (principal)

== ENCOUNTER → 2021-08-31 | Outpatient (REF) | payer MEDICARE ==
[2021-08-31 13:04] LABS: BASO % 0.3 % (0.0-1.0); EOS % 0.3 % (0.0-3.0); HEMATOCRIT 33.2 % (36.0-47.0); HEMOGLOBIN 10.4 g/dl (12.0-15.5); LYMPH # 1.3 10^3/uL (1.5-5.0); LYMPH % 37.3 % (24.0-44.0); MEAN CORPUSCULAR HEMOGLOBIN 29.1 pg (27.0-33.0); MEAN CORPUSCULAR HGB CONC 31.3 g/dl (32.0-36.5); MEAN CORPUSCULAR VOLUME 92.7 fl (80.0-96.0); MONO # 0.8 10^3/uL (0.0-0.8); MONO % 22.6 % (2.0-8.0); NEUTROPHILS # 1.4 10^3/uL (1.5-8.5); NEUTROPHILS % 38.4 % (36.0-66.0); PLATELET COUNT, AUTOMATED 290 10^3/uL (150-450); RED BLOOD COUNT 3.58 10^6/uL (4.00-5.40); WHITE BLOOD COUNT 3.5 10^3/uL (4.0-10.0)
[2021-08-31 13:26] LABS: INR 1.08; PROTHROMBIN TIME 14.4 SECONDS (12.7-14.5)
[2021-08-31 13:27] LABS: PARTIAL THROMBOPLASTIN TIME 24.7 SECONDS (25.9-37.0)
[2021-08-31 13:39] LABS: ALBUMIN 3.8 GM/DL (3.2-5.2); ALT/SGPT 35 U/L (12-78); BILIRUBIN,TOTAL 0.4 MG/DL (0.2-1.0); BLOOD UREA NITROGEN 21 MG/DL (7-18); CALCIUM LEVEL 9.4 MG/DL (8.8-10.2); CARBON DIOXIDE LEVEL 30 MEQ/L (21-32); CHLORIDE LEVEL 100 MEQ/L (98-107); CREATININE FOR GFR 0.97 MG/DL (0.55-1.30); GLOMERULAR FILTRATION RATE > 60.0 (>45); GLUCOSE, FASTING 115 MG/DL (70-100); LDH LACTATE DEHYDROGENASE 256 U/L (84-246); MAGNESIUM LEVEL 1.9 MG/DL (1.8-2.4); POTASSIUM SERUM 3.6 MEQ/L (3.5-5.1); SODIUM LEVEL 137 MEQ/L (136-145)
[2021-08-31 14:12] LABS: CA 125 43.4 U/ML (<30.2)
== END ==
LOC: M LABDRWAD 12:27
PROVIDERS: ATTEND Obstetrics & Gynecology
DX: C57.9 Malignant neoplasm of female genital organ, unspecified (principal)

== ENCOUNTER → 2021-09-28 | Outpatient (REF) | payer MEDICARE ==
[2021-09-28 11:17] LABS: BASO % 0.5 % (0.0-1.0); EOS % 0.7 % (0.0-3.0); HEMATOCRIT 29.8 % (36.0-47.0); HEMOGLOBIN 9.6 g/dl (12.0-15.5); LYMPH # 1.3 10^3/uL (1.5-5.0); LYMPH % 32.3 % (24.0-44.0); MEAN CORPUSCULAR HEMOGLOBIN 30.5 pg (27.0-33.0); MEAN CORPUSCULAR HGB CONC 32.2 g/dl (32.0-36.5); MEAN CORPUSCULAR VOLUME 94.6 fl (80.0-96.0); MONO # 0.9 10^3/uL (0.0-0.8); MONO % 21.7 % (2.0-8.0); NEUTROPHILS # 1.8 10^3/uL (1.5-8.5); NEUTROPHILS % 44.3 % (36.0-66.0); PLATELET COUNT, AUTOMATED 272 10^3/uL (150-450); RED BLOOD COUNT 3.15 10^6/uL (4.00-5.40); WHITE BLOOD COUNT 4.2 10^3/uL (4.0-10.0)
[2021-09-28 11:33] LABS: ALBUMIN 3.6 GM/DL (3.2-5.2); ALT/SGPT 33 U/L (12-78); BILIRUBIN,TOTAL 0.4 MG/DL (0.2-1.0); BLOOD UREA NITROGEN 18 MG/DL (7-18); CALCIUM LEVEL 9.1 MG/DL (8.8-10.2); CARBON DIOXIDE LEVEL 30 MEQ/L (21-32); CHLORIDE LEVEL 103 MEQ/L (98-107); CREATININE FOR GFR 0.81 MG/DL (0.55-1.30); GLOMERULAR FILTRATION RATE > 60.0 (>45); GLUCOSE, FASTING 102 MG/DL (70-100); POTASSIUM SERUM 3.5 MEQ/L (3.5-5.1); SODIUM LEVEL 138 MEQ/L (136-145); TOTAL PROTEIN 6.7 GM/DL (6.4-8.2)
[2021-09-28 11:34] LABS: MAGNESIUM LEVEL 1.8 MG/DL (1.8-2.4)
[2021-09-28 12:10] LABS: CA 125 45.4 U/ML (<30.2)
[2021-09-30 15:11] LABS: HE4 75.1 pmol/L (0.0-96.5)
== END ==
LOC: M LAB REF 10:53
PROVIDERS: ATTEND Internal Medicine Hematology & Oncology
DX: C57.9 Malignant neoplasm of female genital organ, unspecified (principal); E87.70 Fluid overload, unspecified

== ENCOUNTER → 2021-11-23 | Outpatient (REF) | payer MEDICARE ==
[2021-11-23 11:02] LABS: BASO % 0.3 % (0.0-1.0); EOS % 0.3 % (0.0-3.0); HEMATOCRIT 23.5 % (36.0-47.0); HEMOGLOBIN 7.6 g/dl (12.0-15.5); LYMPH # 1.3 10^3/uL (1.5-5.0); LYMPH % 35.2 % (24.0-44.0); MEAN CORPUSCULAR HEMOGLOBIN 33.6 pg (27.0-33.0); MEAN CORPUSCULAR HGB CONC 32.3 g/dl (32.0-36.5); MONO # 0.9 10^3/uL (0.0-0.8); MONO % 23.8 % (2.0-8.0); NEUTROPHILS # 1.5 10^3/uL (1.5-8.5); NEUTROPHILS % 40.1 % (36.0-66.0); PLATELET COUNT, AUTOMATED 251 10^3/uL (150-450); RED BLOOD COUNT 2.26 10^6/uL (4.00-5.40); WHITE BLOOD COUNT 3.8 10^3/uL (4.0-10.0)
[2021-11-23 11:26] LABS: ALBUMIN 3.5 GM/DL (3.2-5.2); ALT/SGPT 21 U/L (12-78); BILIRUBIN,TOTAL 0.5 MG/DL (0.2-1.0); BLOOD UREA NITROGEN 19 MG/DL (7-18); CALCIUM LEVEL 9.3 MG/DL (8.8-10.2); CARBON DIOXIDE LEVEL 29 MEQ/L (21-32); CHLORIDE LEVEL 103 MEQ/L (98-107); CREATININE FOR GFR 0.91 MG/DL (0.55-1.30); GLOMERULAR FILTRATION RATE > 60.0 (>45); GLUCOSE, FASTING 117 MG/DL (70-100); MAGNESIUM LEVEL 1.6 MG/DL (1.8-2.4); POTASSIUM SERUM 3.9 MEQ/L (3.5-5.1); SODIUM LEVEL 139 MEQ/L (136-145); TOTAL PROTEIN 6.5 GM/DL (6.4-8.2)
[2021-11-23 12:01] LABS: CA 125 119.8 U/ML (<30.2)
== END ==
LOC: M LAB REF 08:16
PROVIDERS: ATTEND Internal Medicine Hematology & Oncology
DX: C57.9 Malignant neoplasm of female genital organ, unspecified (principal)

== ENCOUNTER → 2021-12-21 | Outpatient (REF) | payer MEDICARE ==
[2021-12-21 11:53] LABS: BASO % 0.3 % (0.0-1.0); EOS % 0.9 % (0.0-3.0); HEMOGLOBIN 9.8 g/dl (12.0-15.5); LYMPH # 1.3 10^3/uL (1.5-5.0); LYMPH % 37.2 % (24.0-44.0); MEAN CORPUSCULAR HEMOGLOBIN 33.2 pg (27.0-33.0); MEAN CORPUSCULAR HGB CONC 32.7 g/dl (32.0-36.5); MEAN CORPUSCULAR VOLUME 101.7 fl (80.0-96.0); MONO # 0.8 10^3/uL (0.0-0.8); MONO % 21.3 % (2.0-8.0); NEUTROPHILS # 1.4 10^3/uL (1.5-8.5); PLATELET COUNT, AUTOMATED 205 10^3/uL (150-450); RED BLOOD COUNT 2.95 10^6/uL (4.00-5.40); WHITE BLOOD COUNT 3.5 10^3/uL (4.0-10.0)
[2021-12-21 12:43] LABS: ALT/SGPT 26 U/L (12-78); BILIRUBIN,TOTAL 0.4 MG/DL (0.2-1.0); BLOOD UREA NITROGEN 21 MG/DL (7-18); CALCIUM LEVEL 10.5 MG/DL (8.8-10.2); CARBON DIOXIDE LEVEL 29 MEQ/L (21-32); CHLORIDE LEVEL 104 MEQ/L (98-107); CREATININE FOR GFR 0.75 MG/DL (0.55-1.30); GLOMERULAR FILTRATION RATE > 60.0 (>45); GLUCOSE, FASTING 110 MG/DL (70-100); MAGNESIUM LEVEL 1.8 MG/DL (1.8-2.4); POTASSIUM SERUM 3.7 MEQ/L (3.5-5.1); SODIUM LEVEL 140 MEQ/L (136-145)
== END ==
LOC: M LAB REF 10:25
PROVIDERS: ATTEND Obstetrics & Gynecology Gynecologic Oncology
DX: C57.9 Malignant neoplasm of female genital organ, unspecified (principal)

== ENCOUNTER → 2022-01-13 | Outpatient (REF) | payer MEDICARE ==
[2022-01-13 12:00] LABS: HEMATOCRIT 22.6 % (36.0-47.0); HEMOGLOBIN 7.6 g/dl (12.0-15.5); LYMPH # 1.4 10^3/uL (1.5-5.0); LYMPH % 65.4 % (24.0-44.0); MEAN CORPUSCULAR HGB CONC 33.6 g/dl (32.0-36.5); MEAN CORPUSCULAR VOLUME 98.3 fl (80.0-96.0); MONO # 0.3 10^3/uL (0.0-0.8); MONO % 14.7 % (2.0-8.0); NEUTROPHILS % 19.4 % (36.0-66.0); WHITE BLOOD COUNT 2.2 10^3/uL (4.0-10.0)
[2022-01-13 12:27] LABS: NEUTROPHILS # 0.4 10^3/uL (1.5-8.5); PLATELET COUNT, AUTOMATED 28 10^3/uL (150-450)
[2022-01-13 12:58] LABS: ALBUMIN 3.6 GM/DL (3.2-5.2); ALT/SGPT 24 U/L (12-78); BILIRUBIN,TOTAL 0.4 MG/DL (0.2-1.0); BLOOD UREA NITROGEN 25 MG/DL (7-18); CALCIUM LEVEL 9.5 MG/DL (8.8-10.2); CARBON DIOXIDE LEVEL 29 MEQ/L (21-32); CHLORIDE LEVEL 103 MEQ/L (98-107); CREATININE FOR GFR 0.96 MG/DL (0.55-1.30); GLOMERULAR FILTRATION RATE > 60.0 (>45); GLUCOSE, FASTING 100 MG/DL (70-100); POTASSIUM SERUM 3.9 MEQ/L (3.5-5.1); SODIUM LEVEL 138 MEQ/L (136-145); TOTAL PROTEIN 6.8 GM/DL (6.4-8.2)
[2022-01-13 14:20] LABS: CA 125 144.3 U/ML (<30.2)
== END ==
LOC: M LAB REF 11:15
PROVIDERS: ATTEND Internal Medicine Hematology & Oncology
DX: C80.1 Malignant (primary) neoplasm, unspecified (principal); Z09 Encounter for follow-up examination after completed treatment for conditions other than malignant neoplasm

== ENCOUNTER → 2022-01-15 | Outpatient (REF) | payer MEDICARE ==
[2022-01-15 11:22] LABS: HEMATOCRIT 21.9 % (36.0-47.0); HEMOGLOBIN 7.3 g/dl (12.0-15.5); MEAN CORPUSCULAR HEMOGLOBIN 32.9 pg (27.0-33.0); MEAN CORPUSCULAR HGB CONC 33.3 g/dl (32.0-36.5); MEAN CORPUSCULAR VOLUME 98.6 fl (80.0-96.0); RED BLOOD COUNT 2.22 10^6/uL (4.00-5.40); WHITE BLOOD COUNT 2.5 10^3/uL (4.0-10.0)
[2022-01-15 11:23] LABS: PLATELET COUNT, AUTOMATED 62 10^3/uL (150-450)
[2022-01-15 11:46] LABS: ANISOCYTOSIS 2+; ATYPICAL LYMPH 1 % (0-5); LYMPHOCYTES 55 % (16-44); MONOCYTES 19 % (0-5); NEUTROPHILS 25 % (28-66); PLATELET ESTIMATE DECREASED (NORMAL)
[2022-01-15 12:26] LABS: ALBUMIN 3.5 GM/DL (3.2-5.2); ALT/SGPT 19 U/L (12-78); BILIRUBIN,TOTAL 0.3 MG/DL (0.2-1.0); BLOOD UREA NITROGEN 25 MG/DL (7-18); CALCIUM LEVEL 9.1 MG/DL (8.8-10.2); CARBON DIOXIDE LEVEL 29 MEQ/L (21-32); CHLORIDE LEVEL 101 MEQ/L (98-107); CREATININE FOR GFR 0.96 MG/DL (0.55-1.30); GLOMERULAR FILTRATION RATE > 60.0 (>45); GLUCOSE, FASTING 111 MG/DL (70-100); POTASSIUM SERUM 3.7 MEQ/L (3.5-5.1); SODIUM LEVEL 136 MEQ/L (136-145); TOTAL PROTEIN 6.7 GM/DL (6.4-8.2)
[2022-01-15 13:24] LABS: CA 125 134.7 U/ML (<30.2)
== END ==
LOC: M LAB REF 10:47
PROVIDERS: ATTEND Internal Medicine Hematology & Oncology
DX: C80.1 Malignant (primary) neoplasm, unspecified (principal)

== ENCOUNTER → 2022-01-21 | Outpatient (REF) | payer MEDICARE ==
[2022-01-21 14:46] LABS: EOS % 0.2 % (0.0-3.0); HEMATOCRIT 22.5 % (36.0-47.0); HEMOGLOBIN 7.3 g/dl (12.0-15.5); LYMPH # 1.5 10^3/uL (1.5-5.0); LYMPH % 34.4 % (24.0-44.0); MEAN CORPUSCULAR HEMOGLOBIN 32.9 pg (27.0-33.0); MEAN CORPUSCULAR HGB CONC 32.4 g/dl (32.0-36.5); MEAN CORPUSCULAR VOLUME 101.4 fl (80.0-96.0); MONO # 1.5 10^3/uL (0.0-0.8); MONO % 33.9 % (2.0-8.0); NEUTROPHILS # 1.4 10^3/uL (1.5-8.5); PLATELET COUNT, AUTOMATED 221 10^3/uL (150-450); RED BLOOD COUNT 2.22 10^6/uL (4.00-5.40); WHITE BLOOD COUNT 4.4 10^3/uL (4.0-10.0)
[2022-01-21 15:08] LABS: ALBUMIN 3.9 GM/DL (3.2-5.2); BILIRUBIN,TOTAL 0.3 MG/DL (0.2-1.0); CALCIUM LEVEL 9.9 MG/DL (8.8-10.2); CREATININE FOR GFR 0.99 MG/DL (0.55-1.30); GLOMERULAR FILTRATION RATE 59.4 (>45); POTASSIUM SERUM 3.8 MEQ/L (3.5-5.1); TOTAL PROTEIN 7.5 GM/DL (6.4-8.2)
[2022-01-21 17:04] LABS: CA 125 112.5 U/ML (<30.2)
== END ==
LOC: M LAB REF 13:33
PROVIDERS: ATTEND Internal Medicine Hematology & Oncology
DX: C80.1 Malignant (primary) neoplasm, unspecified (principal); Z09 Encounter for follow-up examination after completed treatment for conditions other than malignant neoplasm

== ENCOUNTER → 2022-01-29 | Outpatient (REF) | payer MEDICARE ==
[2022-01-29 11:39] LABS: BASO % 0.3 % (0.0-1.0); EOS % 0.5 % (0.0-3.0); HEMATOCRIT 30.2 % (36.0-47.0); HEMOGLOBIN 9.9 g/dl (12.0-15.5); LYMPH # 1.4 10^3/uL (1.5-5.0); LYMPH % 22.1 % (24.0-44.0); MEAN CORPUSCULAR HEMOGLOBIN 33.1 pg (27.0-33.0); MEAN CORPUSCULAR HGB CONC 32.8 g/dl (32.0-36.5); MONO # 1.4 10^3/uL (0.0-0.8); MONO % 21.5 % (2.0-8.0); NEUTROPHILS # 3.5 10^3/uL (1.5-8.5); NEUTROPHILS % 55.1 % (36.0-66.0); PLATELET COUNT, AUTOMATED 249 10^3/uL (150-450); RED BLOOD COUNT 2.99 10^6/uL (4.00-5.40); WHITE BLOOD COUNT 6.3 10^3/uL (4.0-10.0)
[2022-01-29 12:59] LABS: ALBUMIN 3.6 GM/DL (3.2-5.2); BILIRUBIN,TOTAL 0.3 MG/DL (0.2-1.0); CALCIUM LEVEL 9.5 MG/DL (8.8-10.2); GLOMERULAR FILTRATION RATE 58.7 (>45); POTASSIUM SERUM 3.6 MEQ/L (3.5-5.1); TOTAL PROTEIN 7.1 GM/DL (6.4-8.2)
[2022-01-29 13:36] LABS: CA 125 163.2 U/ML (<30.2)
== END ==
LOC: M LAB REF 11:09
PROVIDERS: ATTEND Internal Medicine Hematology & Oncology
DX: C80.1 Malignant (primary) neoplasm, unspecified (principal)

== ENCOUNTER → 2022-02-11 | Outpatient (REF) | payer MEDICARE ==
[2022-02-11 14:41] LABS: BASO % 0.1 % (0.0-1.0); EOS # 0.1 10^3/uL (0.0-0.5); HEMATOCRIT 27.8 % (36.0-47.0); HEMOGLOBIN 9.3 g/dl (12.0-15.5); LYMPH # 1.4 10^3/uL (1.5-5.0); MEAN CORPUSCULAR HEMOGLOBIN 33.5 pg (27.0-33.0); MEAN CORPUSCULAR HGB CONC 33.5 g/dl (32.0-36.5); MONO # 0.7 10^3/uL (0.0-0.8); MONO % 9.9 % (2.0-8.0); NEUTROPHILS # 4.9 10^3/uL (1.5-8.5); NEUTROPHILS % 68.7 % (36.0-66.0); PLATELET COUNT, AUTOMATED 168 10^3/uL (150-450); RED BLOOD COUNT 2.78 10^6/uL (4.00-5.40); WHITE BLOOD COUNT 7.2 10^3/uL (4.0-10.0)
[2022-02-11 20:38] LABS: ALBUMIN 3.6 GM/DL (3.2-5.2); BILIRUBIN,TOTAL 0.2 MG/DL (0.2-1.0); CALCIUM LEVEL 9.3 MG/DL (8.8-10.2); CREATININE FOR GFR 1.24 MG/DL (0.55-1.30); GLOMERULAR FILTRATION RATE 45.8 (>45); POTASSIUM SERUM 3.4 MEQ/L (3.5-5.1); TOTAL PROTEIN 6.8 GM/DL (6.4-8.2)
[2022-02-11 21:57] LABS: CA 125 204.5 U/ML (<30.2)
== END ==
LOC: M LAB REF 14:05
PROVIDERS: ATTEND Internal Medicine Hematology & Oncology
DX: C80.1 Malignant (primary) neoplasm, unspecified (principal); Z09 Encounter for follow-up examination after completed treatment for conditions other than malignant neoplasm

== ENCOUNTER → 2022-02-25 | Outpatient (REF) | payer MEDICARE ==
[2022-02-25 15:03] LABS: BASO % 0.4 % (0.0-1.0); EOS # 0.1 10^3/uL (0.0-0.5); EOS % 1.5 % (0.0-3.0); HEMATOCRIT 25.6 % (36.0-47.0); HEMOGLOBIN 8.4 g/dl (12.0-15.5); LYMPH # 1.3 10^3/uL (1.5-5.0); LYMPH % 23.7 % (24.0-44.0); MEAN CORPUSCULAR HEMOGLOBIN 33.1 pg (27.0-33.0); MEAN CORPUSCULAR HGB CONC 32.8 g/dl (32.0-36.5); MEAN CORPUSCULAR VOLUME 100.8 fl (80.0-96.0); MONO # 0.7 10^3/uL (0.0-0.8); MONO % 12.9 % (2.0-8.0); NEUTROPHILS # 3.3 10^3/uL (1.5-8.5); NEUTROPHILS % 60.9 % (36.0-66.0); PLATELET COUNT, AUTOMATED 171 10^3/uL (150-450); RED BLOOD COUNT 2.54 10^6/uL (4.00-5.40); WHITE BLOOD COUNT 5.4 10^3/uL (4.0-10.0)
[2022-02-25 16:28] LABS: BILIRUBIN,TOTAL 0.3 MG/DL (0.2-1.0); CALCIUM LEVEL 9.1 MG/DL (8.8-10.2); CREATININE FOR GFR 1.27 MG/DL (0.55-1.30); GLOMERULAR FILTRATION RATE 44.5 (>45); POTASSIUM SERUM 3.7 MEQ/L (3.5-5.1); TOTAL PROTEIN 6.7 GM/DL (6.4-8.2)
[2022-02-25 17:18] LABS: CA 125 167.4 U/ML (<30.2)
== END ==
LOC: M LAB REF 14:34
PROVIDERS: ATTEND Internal Medicine Hematology & Oncology
DX: C80.1 Malignant (primary) neoplasm, unspecified (principal); Z09 Encounter for follow-up examination after completed treatment for conditions other than malignant neoplasm

== ENCOUNTER → 2022-03-10 | Outpatient (REF) | payer MEDICARE ==
[2022-03-10 14:32] LABS: BASO % 0.2 % (0.0-1.0); EOS # 0.1 10^3/uL (0.0-0.5); EOS % 0.8 % (0.0-3.0); HEMATOCRIT 21.2 % (36.0-47.0); LYMPH # 1.5 10^3/uL (1.5-5.0); LYMPH % 24.6 % (24.0-44.0); MEAN CORPUSCULAR HEMOGLOBIN 32.4 pg (27.0-33.0); MEAN CORPUSCULAR VOLUME 98.1 fl (80.0-96.0); MONO # 0.7 10^3/uL (0.0-0.8); MONO % 11.9 % (2.0-8.0); NEUTROPHILS # 3.8 10^3/uL (1.5-8.5); NEUTROPHILS % 62.2 % (36.0-66.0); PLATELET COUNT, AUTOMATED 177 10^3/uL (150-450); RED BLOOD COUNT 2.16 10^6/uL (4.00-5.40); WHITE BLOOD COUNT 6.1 10^3/uL (4.0-10.0)
[2022-03-10 15:19] LABS: ALBUMIN 3.9 GM/DL (3.2-5.2); BILIRUBIN,TOTAL 0.2 MG/DL (0.2-1.0); CALCIUM LEVEL 9.4 MG/DL (8.8-10.2); CREATININE FOR GFR 1.41 MG/DL (0.55-1.30); GLOMERULAR FILTRATION RATE 39.5 (>45); POTASSIUM SERUM 3.5 MEQ/L (3.5-5.1); TOTAL PROTEIN 6.6 GM/DL (6.4-8.2)
[2022-03-10 16:10] LABS: CA 125 186.2 U/ML (<30.2)
== END ==
LOC: M LAB REF 13:40
PROVIDERS: ATTEND Internal Medicine Hematology & Oncology
DX: C80.1 Malignant (primary) neoplasm, unspecified (principal); Z09 Encounter for follow-up examination after completed treatment for conditions other than malignant neoplasm

== ENCOUNTER → 2022-03-17 | Outpatient (REF) | payer MEDICARE ==
[2022-03-17 12:17] LABS: BASO % 0.3 % (0.0-1.0); EOS # 0.1 10^3/uL (0.0-0.5); EOS % 1.4 % (0.0-3.0); HEMATOCRIT 24.1 % (36.0-47.0); HEMOGLOBIN 7.9 g/dl (12.0-15.5); LYMPH # 1.6 10^3/uL (1.5-5.0); LYMPH % 27.4 % (24.0-44.0); MEAN CORPUSCULAR HEMOGLOBIN 32.2 pg (27.0-33.0); MEAN CORPUSCULAR HGB CONC 32.8 g/dl (32.0-36.5); MEAN CORPUSCULAR VOLUME 98.4 fl (80.0-96.0); MONO % 17.1 % (2.0-8.0); NEUTROPHILS # 3.1 10^3/uL (1.5-8.5); NEUTROPHILS % 52.3 % (36.0-66.0); PLATELET COUNT, AUTOMATED 185 10^3/uL (150-450); RED BLOOD COUNT 2.45 10^6/uL (4.00-5.40); WHITE BLOOD COUNT 5.9 10^3/uL (4.0-10.0)
[2022-03-17 14:10] LABS: ALBUMIN 3.8 GM/DL (3.2-5.2); ALT/SGPT 25 U/L (12-78); BILIRUBIN,TOTAL 0.3 MG/DL (0.2-1.0); BLOOD UREA NITROGEN 20 MG/DL (7-18); CALCIUM LEVEL 9.6 MG/DL (8.8-10.2); CARBON DIOXIDE LEVEL 28 MEQ/L (21-32); CHLORIDE LEVEL 102 MEQ/L (98-107); CREATININE FOR GFR 0.93 MG/DL (0.55-1.30); GLOMERULAR FILTRATION RATE > 60.0 (>45); GLUCOSE, FASTING 87 MG/DL (70-100); POTASSIUM SERUM 3.7 MEQ/L (3.5-5.1); SODIUM LEVEL 137 MEQ/L (136-145); TOTAL PROTEIN 6.7 GM/DL (6.4-8.2)
[2022-03-17 14:58] LABS: CA 125 204.7 U/ML (<30.2)
== END ==
LOC: M LAB REF 10:53
PROVIDERS: ATTEND Internal Medicine Hematology & Oncology
DX: C80.1 Malignant (primary) neoplasm, unspecified (principal); Z09 Encounter for follow-up examination after completed treatment for conditions other than malignant neoplasm

== ENCOUNTER → 2022-03-20 | Outpatient (REF) | payer MEDICARE ==
[2022-03-20 10:49] LABS: APPEARANCE, URINE MANUAL CLEAR (CLEAR); COLOR, URINE MANUAL YELLOW (YELLOW)
[2022-03-20 10:50] LABS: SPECIFIC GRAVITY,URINE MANUAL 1.015 (1.002-1.035)
[2022-03-20 10:52] LABS: BILIRUBIN, URINE MANUAL NEGATIVE (NEGATIVE); GLUCOSE, URINE (UA) MANUAL NEGATIVE (NEGATIVE); KETONE, URINE MANUAL NEGATIVE (NEGATIVE); NITRITE, URINE MANUAL NEGATIVE (NEGATIVE); PROTEIN, URINE MANUAL NEGATIVE (NEGATIVE); UROBILINOGEN, URINE MANUAL NORMAL (NORMAL)
[2022-03-20 10:53] LABS: BLOOD URINE MANUAL NEGATIVE (NEGATIVE); LEUKOCYTE ESTERASE, URINE MAN NEGATIVE (NEGATIVE)
== END ==
LOC: M LAB REF 10:32
PROVIDERS: ATTEND Family Medicine
DX: R30.0 Dysuria (principal)

== ENCOUNTER → 2022-03-25 | Outpatient (REF) | payer MEDICARE ==
[2022-03-25 14:29] LABS: BASO % 0.2 % (0.0-1.0); EOS # 0.1 10^3/uL (0.0-0.5); EOS % 1.7 % (0.0-3.0); HEMATOCRIT 25.1 % (36.0-47.0); HEMOGLOBIN 7.9 g/dl (12.0-15.5); LYMPH # 1.2 10^3/uL (1.5-5.0); LYMPH % 28.4 % (24.0-44.0); MEAN CORPUSCULAR HEMOGLOBIN 32.5 pg (27.0-33.0); MEAN CORPUSCULAR HGB CONC 31.5 g/dl (32.0-36.5); MEAN CORPUSCULAR VOLUME 103.3 fl (80.0-96.0); MONO # 0.7 10^3/uL (0.0-0.8); MONO % 16.1 % (2.0-8.0); NEUTROPHILS # 2.3 10^3/uL (1.5-8.5); NEUTROPHILS % 53.4 % (36.0-66.0); PLATELET COUNT, AUTOMATED 180 10^3/uL (150-450); RED BLOOD COUNT 2.43 10^6/uL (4.00-5.40); WHITE BLOOD COUNT 4.2 10^3/uL (4.0-10.0)
[2022-03-25 15:57] LABS: ALBUMIN 3.6 GM/DL (3.2-5.2); BILIRUBIN,TOTAL 0.3 MG/DL (0.2-1.0); CALCIUM LEVEL 9.1 MG/DL (8.8-10.2); CREATININE FOR GFR 1.13 MG/DL (0.55-1.30); POTASSIUM SERUM 3.7 MEQ/L (3.5-5.1); TOTAL PROTEIN 6.4 GM/DL (6.4-8.2)
[2022-03-25 16:48] LABS: CA 125 205.3 U/ML (<30.2)
== END ==
LOC: M LAB REF 08:33
PROVIDERS: ATTEND Internal Medicine Hematology & Oncology
DX: C80.1 Malignant (primary) neoplasm, unspecified (principal); Z09 Encounter for follow-up examination after completed treatment for conditions other than malignant neoplasm

== ENCOUNTER → 2022-04-08 | Outpatient (CLI) | payer MEDICARE ==
[~2022-04-08] MED LIST changes: +DOCU100C16 PO; +OXYC10TA12 PO
== END ==
LOC: M ONCR 14:46
PROVIDERS: ATTEND General Practice
DX: C54.1 Malignant neoplasm of endometrium (principal); C79.11 Secondary malignant neoplasm of bladder; C79.82 Secondary malignant neoplasm of genital organs; I10 Essential (primary) hypertension; K21.9 Gastro-esophageal reflux disease without esophagitis; K51.919 Ulcerative colitis, unspecified with unspecified complications; Z79.51 Long term (current) use of inhaled steroids; Z79.01 Long term (current) use of anticoagulants; Z79.82 Long term (current) use of aspirin; Z79.891 Long term (current) use of opiate analgesic; Z79.899 Other long term (current) drug therapy; Z80.0 Family history of malignant neoplasm of digestive organs; Z80.1 Family history of malignant neoplasm of trachea, bronchus and lung; Z86.718 Personal history of other venous thrombosis and embolism; Z88.0 Allergy status to penicillin; Z90.710 Acquired absence of both cervix and uterus; Z90.721 Acquired absence of ovaries, unilateral; Z90.79 Acquired absence of other genital organ(s); Z91.030 Bee allergy status; Z92.21 Personal history of antineoplastic chemotherapy; Z93.6 Other artificial openings of urinary tract status

== ENCOUNTER → 2022-04-27 | Outpatient (REF) | payer MEDICARE ==
[2022-04-27 11:56] LABS: BASO % 0.3 % (0.0-1.0); EOS # 0.1 10^3/uL (0.0-0.5); EOS % 3.1 % (0.0-3.0); HEMATOCRIT 26.2 % (36.0-47.0); HEMOGLOBIN 8.6 g/dl (12.0-15.5); LYMPH # 0.8 10^3/uL (1.5-5.0); LYMPH % 20.9 % (24.0-44.0); MEAN CORPUSCULAR HEMOGLOBIN 32.2 pg (27.0-33.0); MEAN CORPUSCULAR HGB CONC 32.8 g/dl (32.0-36.5); MEAN CORPUSCULAR VOLUME 98.1 fl (80.0-96.0); MONO # 0.5 10^3/uL (0.0-0.8); MONO % 13.9 % (2.0-8.0); NEUTROPHILS # 2.3 10^3/uL (1.5-8.5); NEUTROPHILS % 61.3 % (36.0-66.0); PLATELET COUNT, AUTOMATED 140 10^3/uL (150-450); RED BLOOD COUNT 2.67 10^6/uL (4.00-5.40); WHITE BLOOD COUNT 3.8 10^3/uL (4.0-10.0)
[2022-04-27 12:57] LABS: ALBUMIN 3.7 GM/DL (3.2-5.2); BILIRUBIN,TOTAL 0.3 MG/DL (0.2-1.0); CALCIUM LEVEL 8.9 MG/DL (8.8-10.2); CREATININE FOR GFR 1.36 MG/DL (0.55-1.30); GLOMERULAR FILTRATION RATE 41.2 (>45); POTASSIUM SERUM 3.9 MEQ/L (3.5-5.1); TOTAL PROTEIN 6.3 GM/DL (6.4-8.2)
[2022-04-27 14:11] LABS: CA 125 181.3 U/ML (<30.2)
== END ==
LOC: M LAB REF 11:10
PROVIDERS: ATTEND Internal Medicine Hematology & Oncology
DX: C80.1 Malignant (primary) neoplasm, unspecified (principal); Z09 Encounter for follow-up examination after completed treatment for conditions other than malignant neoplasm

== ENCOUNTER 2022-04-28 11:18 | Outpatient (RCR) | payer MEDICARE ==
[2022-05-05] MEDS ORDERED: HYDR25SU23 PR (13:14)
[2022-05-06] MEDS ORDERED: HYDR25OIN RC (09:51)
[2022-05-10] MEDS ORDERED: PRED50TA PO (12:17)
== END 2022-05-10 ==
LOC: M ONCR 11:18
PROVIDERS: ATTEND General Practice
DX: C54.1 Malignant neoplasm of endometrium (principal)

== ENCOUNTER → 2022-05-10 | Outpatient (REF) | payer MEDICARE ==
[~2022-05-10] MED LIST changes: +HYDR25OIN RC; +HYDR25SU23 PR; +PRED50TA PO
[2022-05-10 12:03] LABS: BASO % 0.2 % (0.0-1.0); EOS % 0.6 % (0.0-3.0); HEMATOCRIT 23.5 % (36.0-47.0); HEMOGLOBIN 7.7 g/dl (12.0-15.5); LYMPH # 0.5 10^3/uL (1.5-5.0); LYMPH % 10.6 % (24.0-44.0); MEAN CORPUSCULAR HEMOGLOBIN 31.7 pg (27.0-33.0); MEAN CORPUSCULAR HGB CONC 32.8 g/dl (32.0-36.5); MEAN CORPUSCULAR VOLUME 96.7 fl (80.0-96.0); MONO # 0.8 10^3/uL (0.0-0.8); MONO % 14.9 % (2.0-8.0); NEUTROPHILS # 3.7 10^3/uL (1.5-8.5); NEUTROPHILS % 73.1 % (36.0-66.0); PLATELET COUNT, AUTOMATED 225 10^3/uL (150-450); RED BLOOD COUNT 2.43 10^6/uL (4.00-5.40); WHITE BLOOD COUNT 5.1 10^3/uL (4.0-10.0)
[2022-05-10 12:42] LABS: ALBUMIN 3.6 GM/DL (3.2-5.2); BILIRUBIN,TOTAL 0.4 MG/DL (0.2-1.0); CALCIUM LEVEL 9.3 MG/DL (8.8-10.2); CREATININE FOR GFR 1.32 MG/DL (0.55-1.30); GLOMERULAR FILTRATION RATE 42.6 (>45); POTASSIUM SERUM 3.5 MEQ/L (3.5-5.1); TOTAL PROTEIN 6.5 GM/DL (6.4-8.2)
[2022-05-10 13:52] LABS: CA 125 110.5 U/ML (<30.2)
== END ==
LOC: M LAB REF 11:33
PROVIDERS: ATTEND Internal Medicine Hematology & Oncology
DX: C80.1 Malignant (primary) neoplasm, unspecified (principal); Z09 Encounter for follow-up examination after completed treatment for conditions other than malignant neoplasm

== ENCOUNTER → 2022-05-18 | Outpatient (REF) | payer MEDICARE ==
[~2022-05-18] MED LIST changes: +BACTDSTA PO
[2022-05-18 14:42] LABS: APPEARANCE, URINE MANUAL HAZY (CLEAR); COLOR, URINE MANUAL YELLOW (YELLOW); PROTEIN, URINE MANUAL 1+ mg/dL (NEGATIVE)
[2022-05-18 14:43] LABS: BILIRUBIN, URINE MANUAL NEGATIVE (NEGATIVE); BLOOD URINE MANUAL POSITIVE (NEGATIVE); GLUCOSE, URINE (UA) MANUAL NEGATIVE (NEGATIVE); KETONE, URINE MANUAL NEGATIVE (NEGATIVE); LEUKOCYTE ESTERASE, URINE MAN POSITIVE (NEGATIVE); NITRITE, URINE MANUAL NEGATIVE (NEGATIVE); UROBILINOGEN, URINE MANUAL NORMAL (NORMAL)
[2022-05-18 14:52] LABS: BACTERIA, URINE SMALL AMOUNT; HYALINE CAST, URINE NONE SEEN /lpf (0-1); SQUAMOUS EPITHELIAL CELL URINE NONE SEEN /hpf (SMALL AMT); WBC, URINE 15-20 /hpf (0-3)
== END ==
LOC: M LAB REF 12:56
PROVIDERS: ATTEND General Practice
DX: C54.1 Malignant neoplasm of endometrium (principal)

== ENCOUNTER → 2022-05-24 | Outpatient (REF) | payer MEDICARE ==
[2022-05-24 14:57] LABS: BASO % 0.2 % (0.0-1.0); EOS % 0.6 % (0.0-3.0); HEMATOCRIT 24.2 % (36.0-47.0); HEMOGLOBIN 7.6 g/dl (12.0-15.5); LYMPH # 0.9 10^3/uL (1.5-5.0); LYMPH % 14.8 % (24.0-44.0); MEAN CORPUSCULAR HEMOGLOBIN 32.8 pg (27.0-33.0); MEAN CORPUSCULAR HGB CONC 31.4 g/dl (32.0-36.5); MEAN CORPUSCULAR VOLUME 104.3 fl (80.0-96.0); MONO # 0.7 10^3/uL (0.0-0.8); MONO % 10.9 % (2.0-8.0); NEUTROPHILS # 4.5 10^3/uL (1.5-8.5); NEUTROPHILS % 72.9 % (36.0-66.0); PLATELET COUNT, AUTOMATED 202 10^3/uL (150-450); RED BLOOD COUNT 2.32 10^6/uL (4.00-5.40); WHITE BLOOD COUNT 6.2 10^3/uL (4.0-10.0)
[2022-05-24 16:44] LABS: ALBUMIN 3.8 GM/DL (3.2-5.2); BILIRUBIN,TOTAL 0.2 MG/DL (0.2-1.0); CALCIUM LEVEL 9.2 MG/DL (8.8-10.2); CREATININE FOR GFR 1.38 MG/DL (0.55-1.30); GLOMERULAR FILTRATION RATE 40.5 (>45); POTASSIUM SERUM 4.6 MEQ/L (3.5-5.1); TOTAL PROTEIN 6.3 GM/DL (6.4-8.2)
[2022-05-24 19:42] LABS: CA 125 157.2 U/ML (<30.2)
== END ==
LOC: M LAB REF 13:57
PROVIDERS: ATTEND Internal Medicine Hematology & Oncology
DX: C80.1 Malignant (primary) neoplasm, unspecified (principal); Z09 Encounter for follow-up examination after completed treatment for conditions other than malignant neoplasm

== ENCOUNTER 2022-05-27 13:59 | Inpatient (IN) | payer MEDICARE ==
[2022-05-27] VITALS (11 sets, daily range): BP systolic 81–137; BP diastolic 44–66
[~2022-05-27] VITALS: Ht 157.5 cm; Wt 84.6 kg
[2022-05-27] MEDS ORDERED: SODIUM CHLORIDE 0.9% 1000ML IV ONE (15:35)
[2022-05-27] MEDS ORDERED: ONDANSETRON 4MG 2ML VIAL IV PRN (16:00)
[2022-05-27] MEDS ORDERED: VENTAER INH (16:31)
[2022-05-27] MEDS ORDERED: LISI20TA35 PO (16:31)
[2022-05-27] MEDS ORDERED: ONDA-84 PO (16:31)
[2022-05-27] MEDS ORDERED: CIPR500T39 PO (16:31)
[2022-05-27] MEDS ORDERED: LYNP150T PO (16:31)
[2022-05-27] MEDS ORDERED: D 50CAP3 PO (16:31)
[2022-05-27] MEDS ORDERED: LOPE1CAP5 PO (16:31)
[2022-05-27] MEDS ORDERED: FAMO40TA3 PO (16:31)
[2022-05-27] MEDS: NS 1,000 ML IV SCH (16:33)
[2022-05-27] MEDS ORDERED: HOME MED LIST COMPLETE! XX SCH (16:35)
[2022-05-27] MEDS ORDERED: ALBUTEROL 90 MCG/ACT 8GM HFA INHALER INH PRN (16:40)
[2022-05-27] MEDS ORDERED: LOPERAMIDE 2 MG CAPLET PO PRN (16:40)
[2022-05-27 17:47] LABS: BASO % 0.2 % (0.0-1.0); EOS # 0.1 10^3/uL (0.0-0.5); EOS % 1.2 % (0.0-3.0); HEMATOCRIT 22.1 % (36.0-47.0); LYMPH % 20.5 % (24.0-44.0); MEAN CORPUSCULAR HEMOGLOBIN 33.2 pg (27.0-33.0); MEAN CORPUSCULAR HGB CONC 31.2 g/dl (32.0-36.5); MEAN CORPUSCULAR VOLUME 106.3 fl (80.0-96.0); MONO # 0.6 10^3/uL (0.0-0.8); MONO % 12.8 % (2.0-8.0); NEUTROPHILS # 3.1 10^3/uL (1.5-8.5); NEUTROPHILS % 64.9 % (36.0-66.0); PLATELET COUNT, AUTOMATED 182 10^3/uL (150-450); RED BLOOD COUNT 2.08 10^6/uL (4.00-5.40); WHITE BLOOD COUNT 4.8 10^3/uL (4.0-10.0)
[2022-05-27] MEDS: cefTRIAXone SOD 1 GM in D5W MINI-BAG PLUS 50 ML IV SCH (17:48)
[2022-05-27] MEDS: LACTOBACILLUS ACIDOPHILUS CAP (BACID) PO SCH (17:48)
[2022-05-27 17:52] LABS: HEMOGLOBIN 6.9 g/dl (12.0-15.5)
[2022-05-27] MEDS: sulfaSALAzine 500 MG TABEC PO SCH ×2 (17:55→21:01)
[2022-05-27 18:09] LABS: INR 1.27; PARTIAL THROMBOPLASTIN TIME 30.4 SECONDS (24.8-34.2); PROTHROMBIN TIME 16.2 SECONDS (12.5-14.5)
[2022-05-27 18:35] LABS: ERYTHROCYTE SEDIMENTATION RATE 85 mm/hr (0-30)
[2022-05-27] MEDS: oxyCODONE 5MG TAB PO PRN ×2 (18:48→23:31)
[2022-05-27 19:26] LABS: ALBUMIN 3.4 G/DL (3.2-5.2); ALT/SGPT 18 U/L (7.0-40); BILIRUBIN,TOTAL 0.2 MG/DL (0.3-1.2); BLOOD UREA NITROGEN 26 MG/DL (9-23); CALCIUM LEVEL 8.4 MG/DL (8.3-10.6); CARBON DIOXIDE LEVEL 23 MMOL/L (20-31); CHLORIDE LEVEL 99 MMOL/L (98-107); CK-MB VALUE MASS < 1.0 NG/ML (<3.6); CPK CREATINE PHOSPHOKINASE 54 U/L (34-145); CREATININE FOR GFR 1.42 MG/DL (0.55-1.30); GLOMERULAR FILTRATION RATE 39.2 (>45); GLUCOSE, FASTING 100 MG/DL (74-106); MB/CK RELATIVE INDEX 1.85 (< OR =4); SODIUM LEVEL 135 MMOL/L (136-145); TOTAL PROTEIN 5.6 G/DL (5.7-8.2)
[2022-05-27 19:28] LABS: FERRITIN 606.6 NG/ML (7.3-270.7); PERCENT SATURATION 9.9 % (13.2-45.0)
[2022-05-27 19:32] LABS: FOLATE 12.36 NG/ML (>5.4)
[2022-05-27 19:40] LABS: RSV AMPLIFICATION NEGATIVE (NEGATIVE)
[2022-05-27] MEDS ORDERED: PANTOPRAZOLE 40MG VIAL IV SCH (21:00)
[2022-05-28] VITALS (9 sets, daily range): BP systolic 98–133; BP diastolic 50–62
[2022-05-28] MEDS: HYDROMORPHONE HCL 0.5 MG/ 0.5 ML SYRINGE (J1170 PER 1) IV PRN ×4 (01:21→23:38)
[2022-05-28] MEDS: NS 1,000 ML IV SCH (02:38)
[2022-05-28 05:28] LABS: BASO % 0.2 % (0.0-1.0); EOS # 0.1 10^3/uL (0.0-0.5); EOS % 2.2 % (0.0-3.0); HEMATOCRIT 30.2 % (36.0-47.0); LYMPH # 0.8 10^3/uL (1.5-5.0); LYMPH % 16.5 % (24.0-44.0); MEAN CORPUSCULAR HEMOGLOBIN 32.3 pg (27.0-33.0); MEAN CORPUSCULAR HGB CONC 32.5 g/dl (32.0-36.5); MEAN CORPUSCULAR VOLUME 99.7 fl (80.0-96.0); MONO # 0.7 10^3/uL (0.0-0.8); MONO % 13.3 % (2.0-8.0); NEUTROPHILS # 3.4 10^3/uL (1.5-8.5); NEUTROPHILS % 67.4 % (36.0-66.0); PLATELET COUNT, AUTOMATED 143 10^3/uL (150-450); RED BLOOD COUNT 3.03 10^6/uL (4.00-5.40); WHITE BLOOD COUNT 5.1 10^3/uL (4.0-10.0)
[2022-05-28 05:50] LABS: HEMOGLOBIN 9.8 g/dl (12.0-15.5)
[2022-05-28] MEDS: sulfaSALAzine 500 MG TABEC PO SCH ×3 (06:14→20:08)
[2022-05-28] MEDS: oxyCODONE 5MG TAB PO PRN ×3 (06:42→20:19)
[2022-05-28 07:32] LABS: ALBUMIN 3.1 G/DL (3.2-5.2); CALCIUM LEVEL 8.4 MG/DL (8.3-10.6); CREATININE FOR GFR 1.06 MG/DL (0.55-1.30); GLOMERULAR FILTRATION RATE 54.9 (>45); POTASSIUM SERUM 4.4 MMOL/L (3.5-5.1); TOTAL PROTEIN 5.1 G/DL (5.7-8.2)
[2022-05-28] MEDS ORDERED: SENNA 8.6 MG TAB (SENOKOT) PO PRN (08:15)
[2022-05-28] MEDS ORDERED: KETOROLAC 30 MG/ML 1ML VIAL IV ONE (08:30)
[2022-05-28] MEDS ORDERED: DOCUSATE SODIUM 100MG CAPSULE PO SCH ×2 (09:00)
[2022-05-28] MEDS: LYNPARZA 150 MG PO SCH ×2 (09:00→20:10)
[2022-05-28] MEDS: ATORVASTATIN 10 MG TAB PO SCH (09:18)
[2022-05-28] MEDS: FERROUS SULFATE 325MG TAB PO SCH ×2 (09:18→20:18)
[2022-05-28] MEDS: PANTOPRAZOLE 40MG VIAL IV SCH (09:19)
[2022-05-28] MEDS: metroNIDAZOLE 500 MG in IV 1 EA IV SCH ×2 (09:20→16:15)
[2022-05-28] MEDS: LACTOBACILLUS ACIDOPHILUS CAP (BACID) PO SCH ×2 (09:55→17:47)
[2022-05-28] MEDS: ANUSOL HC 25MG SUPP PR SCH ×2 (13:14→20:09)
[2022-05-28] MEDS: cefTRIAXone SOD 1 GM in D5W MINI-BAG PLUS 50 ML IV SCH (17:47)
[2022-05-28] MEDS: DOCUSATE SODIUM 100MG CAPSULE PO SCH (20:08)
[2022-05-29] MEDS: metroNIDAZOLE 500 MG in IV 1 EA IV SCH ×2 (01:07→08:58)
[2022-05-29] MEDS: oxyCODONE 5MG TAB PO PRN ×2 (01:42→06:49)
[2022-05-29 04:24] VITALS: BP 127/60
[2022-05-29] MEDS: HYDROMORPHONE HCL 0.5 MG/ 0.5 ML SYRINGE (J1170 PER 1) IV PRN (04:37)
[2022-05-29 06:11] LABS: HEMOGLOBIN 9.4 g/dl (12.0-15.5); MEAN CORPUSCULAR HEMOGLOBIN 32.8 pg (27.0-33.0); MEAN CORPUSCULAR HGB CONC 33.6 g/dl (32.0-36.5); MEAN CORPUSCULAR VOLUME 97.6 fl (80.0-96.0); PLATELET COUNT, AUTOMATED 154 10^3/uL (150-450); RED BLOOD COUNT 2.87 10^6/uL (4.00-5.40); WHITE BLOOD COUNT 5.2 10^3/uL (4.0-10.0)
[2022-05-29 06:39] LABS: ALT/SGPT 13 U/L (7.0-40); BILIRUBIN,TOTAL 0.3 MG/DL (0.3-1.2); BLOOD UREA NITROGEN 12 MG/DL (9-23); CALCIUM LEVEL 9.1 MG/DL (8.3-10.6); CARBON DIOXIDE LEVEL 25 MMOL/L (20-31); CHLORIDE LEVEL 104 MMOL/L (98-107); CREATININE FOR GFR 0.82 MG/DL (0.55-1.30); GLOMERULAR FILTRATION RATE > 60.0 (>45); GLUCOSE, FASTING 105 MG/DL (74-106); POTASSIUM SERUM 3.9 MMOL/L (3.5-5.1); SODIUM LEVEL 138 MMOL/L (136-145)
[2022-05-29] MEDS ORDERED: RISATAB3 PO (06:48)
[2022-05-29] MEDS ORDERED: OXYC10TA12 PO (06:48)
[2022-05-29] MEDS ORDERED: PRED20TA PO (06:48)
[2022-05-29] MEDS ORDERED: FERR1TAB8 PO (06:48)
[2022-05-29] MEDS ORDERED: SULF500T41 PO (06:48)
[2022-05-29] MEDS ORDERED: ANUSHCSU PR (06:48)
[2022-05-29] MEDS ORDERED: DOCU100C16 PO (06:48)
[2022-05-29] MEDS ORDERED: CEFU50TA PO (06:51)
[2022-05-29] MEDS ORDERED: METR-265 PO (06:56)
[2022-05-29 08:12] VITALS: BP 129/60
[2022-05-29] MEDS: PANTOPRAZOLE 40MG VIAL IV SCH (08:57)
[2022-05-29] MEDS: ANUSOL HC 25MG SUPP PR SCH (08:58)
[2022-05-29] MEDS: LYNPARZA 150 MG PO SCH (08:58)
[2022-05-29] MEDS: ATORVASTATIN 10 MG TAB PO SCH (08:58)
[2022-05-29] MEDS: LACTOBACILLUS ACIDOPHILUS CAP (BACID) PO SCH (08:59)
[2022-05-29] MEDS: FERROUS SULFATE 325MG TAB PO SCH (08:59)
[2022-05-29] MEDS: DOCUSATE SODIUM 100MG CAPSULE PO SCH (08:59)
[2022-05-29] MEDS: sulfaSALAzine 500 MG TABEC PO SCH (08:59)
[2022-05-29] MEDS ORDERED: KETOROLAC 30 MG/ML 1ML VIAL IV ONE (09:30)
== END 2022-05-29 11:45 | disposition home or self-care (01) | DRG 386 ==
LOC: M MSPAV 14:03 → M PCU 17:00
PROVIDERS: ADMIT Internal Medicine Nephrology; ATTEND Internal Medicine
PROC: 30233N1 Transfusion of Nonautologous Red Blood Cells into Peripheral Vein, Percutaneous Approach (ICD-10-PCS; principal; 2022-05-27)
DX: K51.911 Ulcerative colitis, unspecified with rectal bleeding (principal); C79.19 Secondary malignant neoplasm of other urinary organs; N39.0 Urinary tract infection, site not specified; C79.82 Secondary malignant neoplasm of genital organs; C79.11 Secondary malignant neoplasm of bladder; G89.29 Other chronic pain; E78.5 Hyperlipidemia, unspecified; I10 Essential (primary) hypertension; J45.909 Unspecified asthma, uncomplicated; D50.9 Iron deficiency anemia, unspecified; K21.9 Gastro-esophageal reflux disease without esophagitis; D64.81 Anemia due to antineoplastic chemotherapy; C54.1 Malignant neoplasm of endometrium; Z79.01 Long term (current) use of anticoagulants; Z79.82 Long term (current) use of aspirin; Z79.899 Other long term (current) drug therapy; Z88.0 Allergy status to penicillin; Z91.030 Bee allergy status; Z86.718 Personal history of other venous thrombosis and embolism; Z96.0 Presence of urogenital implants

== ENCOUNTER → 2022-06-09 | Outpatient (REF) | payer MEDICARE ==
[~2022-06-09] MED LIST changes: +ANUSHCSU PR; +CEFU50TA PO; +CIPR500T39 PO; +D 50CAP3 PO; +FAMO40TA3 PO; +FERR1TAB8 PO; +LOPE1CAP5 PO; +LYNP150T PO; +METR-265 PO; +ONDA-84 PO; +PRED20TA PO; +RISATAB3 PO; +SULF500T41 PO; +VENTAER INH
[2022-06-09 14:41] LABS: HEMATOCRIT 32.3 % (36.0-47.0); HEMOGLOBIN 10.7 g/dl (12.0-15.5); MEAN CORPUSCULAR HEMOGLOBIN 33.2 pg (27.0-33.0); MEAN CORPUSCULAR HGB CONC 33.1 g/dl (32.0-36.5); MEAN CORPUSCULAR VOLUME 100.3 fl (80.0-96.0); PLATELET COUNT, AUTOMATED 142 10^3/uL (150-450); RED BLOOD COUNT 3.22 10^6/uL (4.00-5.40)
== END ==
LOC: M LAB REF 14:07
PROVIDERS: ATTEND Internal Medicine Gastroenterology
DX: K51.913 Ulcerative colitis, unspecified with fistula (principal); K62.5 Hemorrhage of anus and rectum; K52.0 Gastroenteritis and colitis due to radiation; K21.9 Gastro-esophageal reflux disease without esophagitis; E83.42 Hypomagnesemia

== ENCOUNTER → 2022-06-09 | Outpatient (REF) | payer MEDICARE ==
[2022-06-09 14:41] LABS: BASO % 0.2 % (0.0-1.0); EOS % 0.5 % (0.0-3.0); HEMATOCRIT 32.3 % (36.0-47.0); HEMOGLOBIN 10.7 g/dl (12.0-15.5); LYMPH # 0.9 10^3/uL (1.5-5.0); LYMPH % 14.8 % (24.0-44.0); MEAN CORPUSCULAR HEMOGLOBIN 33.4 pg (27.0-33.0); MEAN CORPUSCULAR HGB CONC 33.1 g/dl (32.0-36.5); MEAN CORPUSCULAR VOLUME 100.9 fl (80.0-96.0); MONO # 0.9 10^3/uL (0.0-0.8); MONO % 14.6 % (2.0-8.0); NEUTROPHILS # 4.2 10^3/uL (1.5-8.5); NEUTROPHILS % 69.4 % (36.0-66.0); PLATELET COUNT, AUTOMATED 145 10^3/uL (150-450); WHITE BLOOD COUNT 6.1 10^3/uL (4.0-10.0)
[2022-06-09 14:59] LABS: ALBUMIN 3.6 G/DL (3.2-5.2); ALKALINE PHOSPHATASE 51 U/L (46-116); ALT/SGPT 32 U/L (7.0-40); AST/SGOT 27 U/L (<34); BILIRUBIN,TOTAL 0.5 MG/DL (0.3-1.2); BLOOD UREA NITROGEN 19 MG/DL (9-23); CALCIUM LEVEL 8.6 MG/DL (8.3-10.6); CARBON DIOXIDE LEVEL 30 MMOL/L (20-31); CHLORIDE LEVEL 100 MMOL/L (98-107); CREATININE FOR GFR 0.81 MG/DL (0.55-1.30); GLOMERULAR FILTRATION RATE > 60.0 (>45); GLUCOSE, FASTING 107 MG/DL (74-106); POTASSIUM SERUM 3.3 MMOL/L (3.5-5.1); SODIUM LEVEL 138 MMOL/L (136-145); TOTAL PROTEIN 5.7 G/DL (5.7-8.2)
== END ==
LOC: M LAB REF 07:52
PROVIDERS: ATTEND Internal Medicine Hematology & Oncology
DX: C80.1 Malignant (primary) neoplasm, unspecified (principal); Z09 Encounter for follow-up examination after completed treatment for conditions other than malignant neoplasm

== ENCOUNTER → 2022-06-22 | Outpatient (CLI) | payer MEDICARE ==
[~2022-06-22] VITALS: Ht 157.5 cm; Wt 78.2 kg
[~2022-06-22] MED LIST changes: +GLYC1TAB18 PO
[2022-06-22 14:38] VITALS: BP 137/73
== END ==
LOC: M PAL 14:27
PROVIDERS: ATTEND Nurse Practitioner Adult Health
DX: C55 Malignant neoplasm of uterus, part unspecified (principal); G89.3 Neoplasm related pain (acute) (chronic); C77.0 Secondary and unspecified malignant neoplasm of lymph nodes of head, face and neck; R11.0 Nausea; K51.80 Other ulcerative colitis without complications; D64.89 Other specified anemias; I72.1 Aneurysm of artery of upper extremity; R19.7 Diarrhea, unspecified; R53.83 Other fatigue; R10.2 Pelvic and perineal pain; K62.89 Other specified diseases of anus and rectum; J30.89 Other allergic rhinitis; J45.909 Unspecified asthma, uncomplicated; K51.811 Other ulcerative colitis with rectal bleeding; I10 Essential (primary) hypertension; E78.5 Hyperlipidemia, unspecified; M19.90 Unspecified osteoarthritis, unspecified site; Z91.030 Bee allergy status; Z79.51 Long term (current) use of inhaled steroids; Z51.5 Encounter for palliative care; Z79.82 Long term (current) use of aspirin; Z90.710 Acquired absence of both cervix and uterus; Z88.0 Allergy status to penicillin; Z80.1 Family history of malignant neoplasm of trachea, bronchus and lung; Z80.0 Family history of malignant neoplasm of digestive organs; Z92.3 Personal history of irradiation; Z86.73 Personal history of transient ischemic attack (TIA), and cerebral infarction without residual deficits; Z79.899 Other long term (current) drug therapy; Z92.21 Personal history of antineoplastic chemotherapy; Z79.01 Long term (current) use of anticoagulants; Z79.891 Long term (current) use of opiate analgesic

== ENCOUNTER → 2022-06-25 | Outpatient (REF) | payer MEDICARE ==
[2022-06-25 14:11] LABS: HEMATOCRIT 30.7 % (36.0-47.0); HEMOGLOBIN 10.1 g/dl (12.0-15.5); LYMPH # 0.3 10^3/uL (1.5-5.0); LYMPH % 4.7 % (24.0-44.0); MEAN CORPUSCULAR HEMOGLOBIN 35.2 pg (27.0-33.0); MEAN CORPUSCULAR HGB CONC 32.9 g/dl (32.0-36.5); MONO # 0.4 10^3/uL (0.0-0.8); MONO % 6.7 % (2.0-8.0); NEUTROPHILS # 5.7 10^3/uL (1.5-8.5); NEUTROPHILS % 87.1 % (36.0-66.0); PLATELET COUNT, AUTOMATED 180 10^3/uL (150-450); RED BLOOD COUNT 2.87 10^6/uL (4.00-5.40); WHITE BLOOD COUNT 6.6 10^3/uL (4.0-10.0)
[2022-06-25 15:37] LABS: ALBUMIN 3.7 G/DL (3.2-5.2); ALKALINE PHOSPHATASE 57 U/L (46-116); ALT/SGPT 22 U/L (7.0-40); AST/SGOT 18 U/L (<34); BILIRUBIN,TOTAL 0.6 MG/DL (0.3-1.2); BLOOD UREA NITROGEN 23 MG/DL (9-23); CALCIUM LEVEL 9.9 MG/DL (8.3-10.6); CARBON DIOXIDE LEVEL 28 MMOL/L (20-31); CHLORIDE LEVEL 102 MMOL/L (98-107); CREATININE FOR GFR 0.74 MG/DL (0.55-1.30); GLOMERULAR FILTRATION RATE > 60.0 (>45); GLUCOSE, FASTING 164 MG/DL (74-106); POTASSIUM SERUM 4.2 MMOL/L (3.5-5.1); SODIUM LEVEL 139 MMOL/L (136-145); TOTAL PROTEIN 6.3 G/DL (5.7-8.2)
== END ==
LOC: M LAB REF 13:15
PROVIDERS: ATTEND Internal Medicine Hematology & Oncology
DX: C80.1 Malignant (primary) neoplasm, unspecified (principal); Z09 Encounter for follow-up examination after completed treatment for conditions other than malignant neoplasm

== ENCOUNTER → 2022-06-25 | Outpatient (CLI) | payer MEDICARE | LOC: M ONCR 12:52 | PROVIDERS: ATTEND General Practice | DX: K51.911 Ulcerative colitis, unspecified with rectal bleeding (principal); Z92.3 Personal history of irradiation ==

== ENCOUNTER → 2022-06-30 | Outpatient (REF) | payer MEDICARE | LOC: M LAB REF 12:41 | PROVIDERS: ATTEND Internal Medicine Gastroenterology | DX: R10.32 Left lower quadrant pain (principal); R19.7 Diarrhea, unspecified ==

== ENCOUNTER → 2022-07-09 | Outpatient (REF) | payer MEDICARE ==
[~2022-07-09] MED LIST changes: -HYDR25SU23 PR; +HYDR25SU61 PR; +OXYC-404 PO
[2022-07-09 12:18] LABS: HEMATOCRIT 27.6 % (36.0-47.0); HEMOGLOBIN 9.2 g/dl (12.0-15.5); MEAN CORPUSCULAR HEMOGLOBIN 38.7 pg (27.0-33.0); MEAN CORPUSCULAR HGB CONC 33.3 g/dl (32.0-36.5); PLATELET COUNT, AUTOMATED 130 10^3/uL (150-450); RED BLOOD COUNT 2.38 10^6/uL (4.00-5.40); WHITE BLOOD COUNT 4.9 10^3/uL (4.0-10.0)
[2022-07-09 12:40] LABS: ALBUMIN 3.9 G/DL (3.2-5.2); ALKALINE PHOSPHATASE 45 U/L (46-116); ALT/SGPT 12 U/L (7.0-40); AST/SGOT 20 U/L (<34); BILIRUBIN,TOTAL 0.7 MG/DL (0.3-1.2); BLOOD UREA NITROGEN 24 MG/DL (9-23); CALCIUM LEVEL 9.5 MG/DL (8.3-10.6); CARBON DIOXIDE LEVEL 28 MMOL/L (20-31); CHLORIDE LEVEL 100 MMOL/L (98-107); CREATININE FOR GFR 0.74 MG/DL (0.55-1.30); GLOMERULAR FILTRATION RATE > 60.0 (>45); GLUCOSE, FASTING 167 MG/DL (74-106); POTASSIUM SERUM 3.6 MMOL/L (3.5-5.1); SODIUM LEVEL 138 MMOL/L (136-145); TOTAL PROTEIN 6.3 G/DL (5.7-8.2)
[2022-07-09 12:56] LABS: ERYTHROCYTE SEDIMENTATION RATE 4 mm/hr (0-30)
== END ==
LOC: M LAB REF 11:42
PROVIDERS: ATTEND Internal Medicine Gastroenterology
DX: K51.913 Ulcerative colitis, unspecified with fistula (principal); K62.5 Hemorrhage of anus and rectum; K52.0 Gastroenteritis and colitis due to radiation

== ENCOUNTER → 2022-07-09 | Outpatient (REF) | payer MEDICARE ==
[2022-07-09 12:18] LABS: BASO % 0.2 % (0.0-1.0); HEMOGLOBIN 9.2 g/dl (12.0-15.5); LYMPH # 0.2 10^3/uL (1.5-5.0); LYMPH % 4.9 % (24.0-44.0); MEAN CORPUSCULAR HEMOGLOBIN 37.9 pg (27.0-33.0); MEAN CORPUSCULAR HGB CONC 32.9 g/dl (32.0-36.5); MONO # 0.2 10^3/uL (0.0-0.8); MONO % 4.1 % (2.0-8.0); NEUTROPHILS # 4.3 10^3/uL (1.5-8.5); NEUTROPHILS % 89.6 % (36.0-66.0); PLATELET COUNT, AUTOMATED 130 10^3/uL (150-450); RED BLOOD COUNT 2.43 10^6/uL (4.00-5.40); WHITE BLOOD COUNT 4.9 10^3/uL (4.0-10.0)
[2022-07-09 12:22] LABS: MEAN CORPUSCULAR VOLUME 115.2 fl (80.0-96.0)
[2022-07-09 12:38] LABS: MAGNESIUM LEVEL 1.5 MG/DL (1.8-2.4)
[2022-07-09 12:40] LABS: ALBUMIN 3.9 G/DL (3.2-5.2); ALKALINE PHOSPHATASE 47 U/L (46-116); ALT/SGPT 17 U/L (7.0-40); AST/SGOT 18 U/L (<34); BILIRUBIN,TOTAL 0.7 MG/DL (0.3-1.2); BLOOD UREA NITROGEN 23 MG/DL (9-23); CALCIUM LEVEL 9.5 MG/DL (8.3-10.6); CARBON DIOXIDE LEVEL 28 MMOL/L (20-31); CHLORIDE LEVEL 101 MMOL/L (98-107); CREATININE FOR GFR 0.71 MG/DL (0.55-1.30); GLOMERULAR FILTRATION RATE > 60.0 (>45); GLUCOSE, FASTING 166 MG/DL (74-106); POTASSIUM SERUM 3.6 MMOL/L (3.5-5.1); SODIUM LEVEL 138 MMOL/L (136-145); TOTAL PROTEIN 6.3 G/DL (5.7-8.2)
[2022-07-09 13:57] LABS: HEMOGLOBIN A1c 4.8 % (4.0-6.0)
[2022-07-14 12:17] LABS: CHOLESTEROL LEVEL 214 MG/DL (<200); HDL CHOLESTEROL 66.8 MG/DL (>40); LDL CHOLESTEROL 110.2 MG/DL (<100); NON-HDL-C 147 MG/DL; TRIGLYCERIDES LEVEL 185 MG/DL (<150)
[2022-07-14 12:20] LABS: THYROID STIMULATING HORMONE 0.759 uIU/ML (0.55-4.78)
== END ==
LOC: M LAB REF 11:37
PROVIDERS: ATTEND Family Medicine
DX: C80.1 Malignant (primary) neoplasm, unspecified (principal); I10 Essential (primary) hypertension; Z79.899 Other long term (current) drug therapy

== ENCOUNTER → 2022-07-09 | Outpatient (REF) | payer MEDICARE ==
[~2022-07-09] MED LIST changes: +HYDR25SU23 PR; -HYDR25SU61 PR
[2022-07-09 12:19] LABS: HEMATOCRIT 28.4 % (36.0-47.0); HEMOGLOBIN 9.2 g/dl (12.0-15.5); MEAN CORPUSCULAR HEMOGLOBIN 37.4 pg (27.0-33.0); MEAN CORPUSCULAR HGB CONC 32.4 g/dl (32.0-36.5); PLATELET COUNT, AUTOMATED 138 10^3/uL (150-450); RED BLOOD COUNT 2.46 10^6/uL (4.00-5.40); WHITE BLOOD COUNT 4.9 10^3/uL (4.0-10.0)
[2022-07-09 12:22] LABS: MEAN CORPUSCULAR VOLUME 115.4 fl (80.0-96.0)
[2022-07-09 13:40] LABS: ANISOCYTOSIS 1+; ATYPICAL LYMPH 1 % (0-5); LYMPHOCYTES 8 % (16-44); MONOCYTES 1 % (0-5); NEUTROPHILS 88 % (28-66); PLATELET ESTIMATE DECREASED (NORMAL)
[2022-07-09 13:41] LABS: POIKILOCYTOSIS 1+
[2022-07-09 14:05] LABS: ALBUMIN 3.8 G/DL (3.2-5.2); ALKALINE PHOSPHATASE 47 U/L (46-116); ALT/SGPT 19 U/L (7.0-40); AST/SGOT 18 U/L (<34); BILIRUBIN,TOTAL 0.7 MG/DL (0.3-1.2); BLOOD UREA NITROGEN 27 MG/DL (9-23); CALCIUM LEVEL 9.5 MG/DL (8.3-10.6); CARBON DIOXIDE LEVEL 28 MMOL/L (20-31); CHLORIDE LEVEL 100 MMOL/L (98-107); CREATININE FOR GFR 0.76 MG/DL (0.55-1.30); GLOMERULAR FILTRATION RATE > 60.0 (>45); GLUCOSE, FASTING 166 MG/DL (74-106); POTASSIUM SERUM 3.7 MMOL/L (3.5-5.1); SODIUM LEVEL 139 MMOL/L (136-145); TOTAL PROTEIN 6.2 G/DL (5.7-8.2)
== END ==
LOC: M LAB REF 11:24
PROVIDERS: ATTEND Internal Medicine Hematology & Oncology
DX: C80.1 Malignant (primary) neoplasm, unspecified (principal); Z09 Encounter for follow-up examination after completed treatment for conditions other than malignant neoplasm

== ENCOUNTER → 2022-07-22 | Outpatient (REF) | payer MEDICARE ==
[~2022-07-22] MED LIST changes: +ANUC25SU PR; +FERR325T3 PO; -HYDR25SU23 PR; +HYDR25SU61 PR; +PRED10TA2 PO
[2022-07-22 15:39] LABS: BASO % 0.2 % (0.0-1.0); EOS % 0.2 % (0.0-3.0); HEMOGLOBIN 9.1 g/dl (12.0-15.5); LYMPH # 0.5 10^3/uL (1.5-5.0); LYMPH % 10.2 % (24.0-44.0); MEAN CORPUSCULAR HEMOGLOBIN 40.8 pg (27.0-33.0); MEAN CORPUSCULAR HGB CONC 33.7 g/dl (32.0-36.5); MONO # 0.7 10^3/uL (0.0-0.8); MONO % 15.6 % (2.0-8.0); NEUTROPHILS # 3.3 10^3/uL (1.5-8.5); NEUTROPHILS % 72.9 % (36.0-66.0); PLATELET COUNT, AUTOMATED 121 10^3/uL (150-450); RED BLOOD COUNT 2.23 10^6/uL (4.00-5.40); WHITE BLOOD COUNT 4.5 10^3/uL (4.0-10.0)
[2022-07-22 15:45] LABS: MEAN CORPUSCULAR VOLUME 121.1 fl (80.0-96.0)
[2022-07-22 16:26] LABS: ANISOCYTOSIS 1+
[2022-07-22 16:27] LABS: PLATELET ESTIMATE DECREASED (NORMAL); POIKILOCYTOSIS 1+
[2022-07-22 17:59] LABS: ALBUMIN 3.7 G/DL (3.2-5.2); ALKALINE PHOSPHATASE 53 U/L (46-116); ALT/SGPT 19 U/L (7.0-40); AST/SGOT 19 U/L (<34); BILIRUBIN,TOTAL 0.5 MG/DL (0.3-1.2); BLOOD UREA NITROGEN 19 MG/DL (9-23); CALCIUM LEVEL 9.3 MG/DL (8.3-10.6); CARBON DIOXIDE LEVEL 26 MMOL/L (20-31); CHLORIDE LEVEL 100 MMOL/L (98-107); CREATININE FOR GFR 0.72 MG/DL (0.55-1.30); GLOMERULAR FILTRATION RATE > 60.0 (>45); GLUCOSE, FASTING 135 MG/DL (74-106); POTASSIUM SERUM 3.9 MMOL/L (3.5-5.1); SODIUM LEVEL 137 MMOL/L (136-145); TOTAL PROTEIN 6.1 G/DL (5.7-8.2)
== END ==
LOC: M LAB REF 15:16
PROVIDERS: ATTEND Internal Medicine Hematology & Oncology
DX: C57.9 Malignant neoplasm of female genital organ, unspecified (principal); Z09 Encounter for follow-up examination after completed treatment for conditions other than malignant neoplasm

== ENCOUNTER → 2022-07-22 | Outpatient (CLI) | payer MEDICARE ==
[~2022-07-22] VITALS: Ht 157.5 cm; Wt 77.2 kg
[2022-07-22 13:17] VITALS: BP 153/77
== END ==
LOC: M PAL 12:56
PROVIDERS: ATTEND Nurse Practitioner Adult Health
DX: C55 Malignant neoplasm of uterus, part unspecified (principal); G89.3 Neoplasm related pain (acute) (chronic); R11.2 Nausea with vomiting, unspecified; K51.90 Ulcerative colitis, unspecified, without complications; Z51.5 Encounter for palliative care; R10.9 Unspecified abdominal pain; Z79.891 Long term (current) use of opiate analgesic; Z79.899 Other long term (current) drug therapy; K21.9 Gastro-esophageal reflux disease without esophagitis; Z86.718 Personal history of other venous thrombosis and embolism; I10 Essential (primary) hypertension; Z92.21 Personal history of antineoplastic chemotherapy; D64.9 Anemia, unspecified; Z88.0 Allergy status to penicillin; Z91.030 Bee allergy status

== ENCOUNTER 2022-07-31 22:41 | Emergency (ER) | payer MEDICARE ==
[~2022-07-31] VITALS: Ht 157.5 cm; Wt 72.7 kg
[2022-07-31] MEDS ORDERED: BUDE3CAP PO (22:59)
[2022-07-31] MEDS ORDERED: PROC10TA5 PO (22:59)
[2022-07-31] MEDS ORDERED: DICY20TA20 PO (22:59)
[2022-08-01] MEDS ORDERED: NS 1,000 ML IV ONE (00:05)
[2022-08-01] MEDS ORDERED: ONDANSETRON 4MG 2ML VIAL IV ONE (00:05)
[2022-08-01] MEDS ORDERED: MORPHINE 4 MG/ML 1ML VIAL IV PRN (00:05)
[2022-08-01 00:50] LABS: BASO % 0.2 % (0.0-1.0); EOS % 0.2 % (0.0-3.0); HEMATOCRIT 27.1 % (36.0-47.0); HEMOGLOBIN 9.1 g/dl (12.0-15.5); LYMPH # 0.7 10^3/uL (1.5-5.0); LYMPH % 12.2 % (24.0-44.0); MEAN CORPUSCULAR HEMOGLOBIN 40.4 pg (27.0-33.0); MEAN CORPUSCULAR HGB CONC 33.6 g/dl (32.0-36.5); MONO # 0.7 10^3/uL (0.0-0.8); MONO % 12.6 % (2.0-8.0); NEUTROPHILS % 74.2 % (36.0-66.0); PLATELET COUNT, AUTOMATED 133 10^3/uL (150-450); RED BLOOD COUNT 2.25 10^6/uL (4.00-5.40); WHITE BLOOD COUNT 5.3 10^3/uL (4.0-10.0)
[2022-08-01 00:58] LABS: RSV AMPLIFICATION NEGATIVE (NEGATIVE)
[2022-08-01 01:07] LABS: MEAN CORPUSCULAR VOLUME 120.4 fl (80.0-96.0)
[2022-08-01 01:45] LABS: GLUCOSE, FASTING 164 MG/DL (74-106)
[2022-08-01 01:51] LABS: BLOOD UREA NITROGEN 16 MG/DL (9-23); CREATININE FOR GFR 0.74 MG/DL (0.55-1.30); GLOMERULAR FILTRATION RATE > 60.0 (>45)
[2022-08-01 01:52] LABS: AST/SGOT 21 U/L (<34); CALCIUM LEVEL 9.1 MG/DL (8.3-10.6); CARBON DIOXIDE LEVEL 28.7 MMOL/L (20-31); CHLORIDE LEVEL 97.8 MMOL/L (98-107); POTASSIUM SERUM 3.3 MMOL/L (3.5-5.1); SODIUM LEVEL 136 MMOL/L (136-145)
[2022-08-01 01:53] LABS: ALKALINE PHOSPHATASE 60 U/L (46-116); ALT/SGPT 18 U/L (7.0-40); AMYLASE 29 U/L (30-118); BILIRUBIN,DIRECT 0.3 MG/DL (<0.4); BILIRUBIN,TOTAL 0.8 MG/DL (0.3-1.2); TOTAL PROTEIN 6.1 G/DL (5.7-8.2)
[2022-08-01 01:54] LABS: ALBUMIN 3.7 G/DL (3.2-5.2); LIPASE 23 U/L (12-53)
[2022-08-01 02:02] LABS: ANISOCYTOSIS 1+
[2022-08-01 02:03] LABS: PLATELET ESTIMATE NORMAL (NORMAL)
[2022-08-01 02:04] LABS: INR 0.98; PROTHROMBIN TIME 13.2 SECONDS (12.5-14.5)
[2022-08-01] MEDS ORDERED: ISOVUE-370 76% 100ML VIAL As Ordered ONE (02:08)
[2022-08-01 04:07] VITALS: BP 149/68
[2022-08-04] MEDS ORDERED: OXYC20TA2 PO (11:53)
[2022-08-05] MEDS ORDERED: OXYC-404 PO (12:06)
== END 2022-08-01 04:15 | disposition home or self-care (01) ==
LOC: M ED 22:41
DX: K51.90 Ulcerative colitis, unspecified, without complications (principal); I10 Essential (primary) hypertension; E78.5 Hyperlipidemia, unspecified; Z86.718 Personal history of other venous thrombosis and embolism; K21.9 Gastro-esophageal reflux disease without esophagitis; C54.1 Malignant neoplasm of endometrium; Z90.710 Acquired absence of both cervix and uterus; Z88.0 Allergy status to penicillin; Z91.030 Bee allergy status; Z79.01 Long term (current) use of anticoagulants; Z79.899 Other long term (current) drug therapy
CPT/HCPCS: 74177; 80048; 80076; 81000; 81015; 82150; 83605; 83690; 85025; 85610; 87040; 87088; 87186; 87631; 93041; 96361; 96374; 96375; 99284; J2405; Q9967

== ENCOUNTER 2022-08-07 20:52 | Inpatient (IN) | payer MEDICARE ==
[~2022-08-07] VITALS: Ht 157.5 cm; Wt 70.9 kg
[~2022-08-07 20:52] MED LIST changes: +BUDE3CAP PO; +DICY20TA20 PO; +OXYC20TA2 PO; +PROC10TA5 PO
[2022-08-07] MEDS ORDERED: CIPR500S PO (21:44)
[2022-08-07 22:22] LABS: BASO % 0.2 % (0.0-1.0); HEMATOCRIT 30.9 % (36.0-47.0); HEMOGLOBIN 10.7 g/dl (12.0-15.5); LYMPH # 0.7 10^3/uL (1.5-5.0); LYMPH % 10.5 % (24.0-44.0); MEAN CORPUSCULAR HEMOGLOBIN 40.2 pg (27.0-33.0); MEAN CORPUSCULAR HGB CONC 34.6 g/dl (32.0-36.5); MONO % 16.5 % (2.0-8.0); NEUTROPHILS # 4.5 10^3/uL (1.5-8.5); PLATELET COUNT, AUTOMATED 207 10^3/uL (150-450); RED BLOOD COUNT 2.66 10^6/uL (4.00-5.40); WHITE BLOOD COUNT 6.2 10^3/uL (4.0-10.0)
[2022-08-07] MEDS ORDERED: ISOVUE-370 76% 100ML VIAL As Ordered ONE (22:24)
[2022-08-07 22:27] LABS: MEAN CORPUSCULAR VOLUME 116.2 fl (80.0-96.0)
[2022-08-07 22:46] LABS: LIPASE 31 U/L (12-53)
[2022-08-07 22:48] LABS: ALBUMIN 4.2 G/DL (3.2-5.2); ALKALINE PHOSPHATASE 57 U/L (46-116); ALT/SGPT 22 U/L (7.0-40); AST/SGOT 52 U/L (<34); BILIRUBIN,DIRECT 0.3 MG/DL (<0.4); BLOOD UREA NITROGEN 21 MG/DL (9-23); CARBON DIOXIDE LEVEL 22 MMOL/L (20-31); CHLORIDE LEVEL 96 MMOL/L (98-107); CREATININE FOR GFR 0.77 MG/DL (0.55-1.30); GLOMERULAR FILTRATION RATE > 60.0 (>45); GLUCOSE, FASTING 159 MG/DL (74-106); POTASSIUM SERUM 4.1 MMOL/L (3.5-5.1); SODIUM LEVEL 134 MMOL/L (136-145); TOTAL PROTEIN 6.4 G/DL (5.7-8.2)
[2022-08-07 22:50] LABS: ANISOCYTOSIS 2+; MICROCYTOSIS 1+; POLYCHROMASIA 1+
[2022-08-07 22:51] LABS: OVALOCYTES 1+; PLATELET ESTIMATE NORMAL (NORMAL); POIKILOCYTOSIS 1+
[2022-08-07] MEDS ORDERED: SODIUM CHLORIDE 0.9% INJ 10 ML SYR IV PRN (23:25)
[2022-08-08] MEDS ORDERED: MORPHINE 4 MG/ML 1ML VIAL IV ONE (00:05)
[2022-08-08] MEDS ORDERED: MORPHINE 2 MG/ML 1ML VIAL IV ONE (01:45)
[2022-08-08] MEDS ORDERED: KETOROLAC 30 MG/ML 1ML VIAL IV ONE (03:00)
[2022-08-08] MEDS: LevoFLOXacin IV 750 MG in IV 1 EA IV SCH (03:00)
[2022-08-08] MEDS ORDERED: CIPR500T39 PO (03:49)
[2022-08-08] MEDS ORDERED: SULF500T2 PO (03:49)
[2022-08-08] MEDS ORDERED: HOME MED LIST COMPLETE! XX SCH (03:50)
[2022-08-08] MEDS ORDERED: PROMETHAZINE 25MG/ML 1ML VIAL IV ONE (04:00)
[2022-08-08] MEDS ORDERED: MORPHINE 2 MG/ML 1ML VIAL IV PRN (05:00)
[2022-08-08] MEDS ORDERED: MORPHINE 4 MG/ML 1ML VIAL IV PRN (05:00)
[2022-08-08 05:40] VITALS: BP 148/84
[2022-08-08] MEDS: NS 1,000 ML IV SCH ×3 (05:49→21:08)
[2022-08-08] MEDS ORDERED: VANCOMYCIN HCL 1,000 MG, VIAL MATE ADAPTER 1 EACH in NS 250 ML IV ONE (08:00)
[2022-08-08] MEDS: ATORVASTATIN 10 MG TAB PO SCH (08:21)
[2022-08-08] MEDS: oxyCODONE 20MG CR TAB PO SCH ×3 (08:21→21:08)
[2022-08-08] MEDS: CETIRIZINE (ZyrTEC) 10 MG TAB PO SCH (08:22)
[2022-08-08] MEDS: OMEPRAZOLE 20MG CAP PO SCH (08:22)
[2022-08-08] MEDS: FERROUS SULFATE 325MG TAB PO SCH (08:22)
[2022-08-08] MEDS: APIXABAN 5 MG TAB (ELIQUIS) PO SCH ×2 (08:22→21:07)
[2022-08-08] MEDS ORDERED: predniSONE 10 MG TAB PO SCH ×2 (09:00→14:35)
[2022-08-08] MEDS ORDERED: ANUSOL HC 25MG SUPP PR PRN (09:00)
[2022-08-08 09:35] LABS: BASO % 0.2 % (0.0-1.0); EOS % 0.4 % (0.0-3.0); HEMATOCRIT 27.4 % (36.0-47.0); HEMOGLOBIN 9.3 g/dl (12.0-15.5); LYMPH # 0.9 10^3/uL (1.5-5.0); LYMPH % 18.6 % (24.0-44.0); MEAN CORPUSCULAR HEMOGLOBIN 40.3 pg (27.0-33.0); MEAN CORPUSCULAR HGB CONC 33.9 g/dl (32.0-36.5); NEUTROPHILS % 59.8 % (36.0-66.0); PLATELET COUNT, AUTOMATED 150 10^3/uL (150-450); RED BLOOD COUNT 2.31 10^6/uL (4.00-5.40)
[2022-08-08 09:37] LABS: MEAN CORPUSCULAR VOLUME 118.6 fl (80.0-96.0)
[2022-08-08 10:13] LABS: ANISOCYTOSIS 1+; POIKILOCYTOSIS 1+; POLYCHROMASIA 1+
[2022-08-08 10:14] LABS: SCHISTOCYTES 1+
[2022-08-08 10:15] LABS: PLATELET ESTIMATE NORMAL (NORMAL); TEAR DROP CELLS 1+
[2022-08-08 10:32] LABS: BLOOD UREA NITROGEN 15 MG/DL (9-23); CALCIUM LEVEL 8.9 MG/DL (8.3-10.6); CARBON DIOXIDE LEVEL 29 MMOL/L (20-31); CHLORIDE LEVEL 98 MMOL/L (98-107); CREATININE FOR GFR 0.71 MG/DL (0.55-1.30); GLOMERULAR FILTRATION RATE > 60.0 (>45); GLUCOSE, FASTING 109 MG/DL (74-106); POTASSIUM SERUM 2.9 MMOL/L (3.5-5.1); SODIUM LEVEL 136 MMOL/L (136-145)
[2022-08-08] MEDS: BUDESONIDE EC 3MG CAP (ENTOCORT EC) PO SCH (10:32)
[2022-08-08] MEDS: sulfaSALAzine 500 MG TABEC PO SCH ×4 (10:32→21:06)
[2022-08-08] MEDS ORDERED: POTASSIUM CHLORIDE 10MEQ SR TABLET PO ONE ×2 (11:00→14:00)
[2022-08-08] MEDS: VANCOMYCIN HCL 750 MG, VIAL MATE ADAPTER 1 EACH in D5W 250 ML IV SCH ×2 (12:20→23:24)
[2022-08-08 14:00] VITALS: BP 146/75
[2022-08-08] MEDS: MAG SULF 1GM/100ML (MAG RUN) 1 GM in IV 1 EA IV SCH ×3 (15:34→18:51)
[2022-08-08 15:53] LABS: HEMATOCRIT 26.4 % (36.0-47.0); HEMOGLOBIN 8.7 g/dl (12.0-15.5)
[2022-08-08] MEDS: PHENAZOPYRIDINE 100 MG TAB PO SCH ×2 (18:51→21:23)
[2022-08-08] MEDS ORDERED: ISOVUE-370 76% 100ML VIAL As Ordered ONE (18:58)
[2022-08-08 19:09] LABS: HEMATOCRIT 26.4 % (36.0-47.0); HEMOGLOBIN 8.7 g/dl (12.0-15.5)
[2022-08-08 19:35] LABS: BLOOD UREA NITROGEN 11 MG/DL (9-23); CALCIUM LEVEL 8.7 MG/DL (8.3-10.6); CARBON DIOXIDE LEVEL 28 MMOL/L (20-31); CHLORIDE LEVEL 105 MMOL/L (98-107); CREATININE FOR GFR 0.64 MG/DL (0.55-1.30); GLOMERULAR FILTRATION RATE > 60.0 (>45); GLUCOSE, FASTING 161 MG/DL (74-106); MAGNESIUM LEVEL 2.2 MG/DL (1.8-2.4); SODIUM LEVEL 138 MMOL/L (136-145)
[2022-08-08 19:59] VITALS: BP 158/73
[2022-08-08] MEDS: FAMOTIDINE 20 MG TAB PO SCH (21:06)
[2022-08-08] MEDS: PROCHLORPERAZINE 10MG 2ML VIAL IV PRN (23:24)
[2022-08-08 23:37] LABS: HEMATOCRIT 28.4 % (36.0-47.0); HEMOGLOBIN 9.3 g/dl (12.0-15.5)
[2022-08-09] MEDS: LYNPARZA 150 MG PO SCH ×3 (00:56→20:01)
[2022-08-09] MEDS ORDERED: NS 1,000 ML IV ONE (02:50)
[2022-08-09] MEDS: oxyCODONE 5MG TAB PO PRN (04:28)
[2022-08-09] MEDS: LevoFLOXacin IV 750 MG in IV 1 EA IV SCH (05:21)
[2022-08-09] MEDS: ACETAMINOPHEN TAB 650MG DOSE (2X325MG) PO PRN ×3 (05:23→19:56)
[2022-08-09 05:42] LABS: EOS % 0.4 % (0.0-3.0); HEMATOCRIT 29.7 % (36.0-47.0); HEMOGLOBIN 9.7 g/dl (12.0-15.5); LYMPH % 17.6 % (24.0-44.0); MEAN CORPUSCULAR HEMOGLOBIN 39.6 pg (27.0-33.0); MEAN CORPUSCULAR HGB CONC 32.7 g/dl (32.0-36.5); MONO # 1.1 10^3/uL (0.0-0.8); MONO % 19.6 % (2.0-8.0); NEUTROPHILS # 3.4 10^3/uL (1.5-8.5); NEUTROPHILS % 61.3 % (36.0-66.0); PLATELET COUNT, AUTOMATED 163 10^3/uL (150-450); RED BLOOD COUNT 2.45 10^6/uL (4.00-5.40); WHITE BLOOD COUNT 5.5 10^3/uL (4.0-10.0)
[2022-08-09 05:52] LABS: MEAN CORPUSCULAR VOLUME 121.2 fl (80.0-96.0)
[2022-08-09 06:08] LABS: BLOOD UREA NITROGEN 9 MG/DL (9-23); CALCIUM LEVEL 8.6 MG/DL (8.3-10.6); CARBON DIOXIDE LEVEL 26 MMOL/L (20-31); CHLORIDE LEVEL 105 MMOL/L (98-107); CREATININE FOR GFR 0.71 MG/DL (0.55-1.30); GLOMERULAR FILTRATION RATE > 60.0 (>45); GLUCOSE, FASTING 105 MG/DL (74-106); MAGNESIUM LEVEL 1.9 MG/DL (1.8-2.4); POTASSIUM SERUM 3.3 MMOL/L (3.5-5.1); SODIUM LEVEL 139 MMOL/L (136-145)
[2022-08-09 06:09] VITALS: BP 171/84
[2022-08-09 06:15] LABS: PLATELET ESTIMATE NORMAL (NORMAL)
[2022-08-09 06:16] LABS: ANISOCYTOSIS 1+
[2022-08-09] MEDS ORDERED: KCL 10MEQ/100ML SWI (KRUN) 10 MEQ in IV 1 EA IV SCH (08:00)
[2022-08-09] MEDS ORDERED: POTASSIUM CHLORIDE 10MEQ SR TABLET PO ONE (09:00)
[2022-08-09] MEDS: NS 1,000 ML IV SCH (09:07)
[2022-08-09] MEDS: PHENAZOPYRIDINE 100 MG TAB PO SCH ×3 (09:08→19:57)
[2022-08-09] MEDS: predniSONE 10 MG TAB PO SCH (09:08)
[2022-08-09] MEDS: APIXABAN 5 MG TAB (ELIQUIS) PO SCH ×2 (09:09→19:59)
[2022-08-09] MEDS: oxyCODONE 20MG CR TAB PO SCH ×3 (09:09→20:00)
[2022-08-09] MEDS: sulfaSALAzine 500 MG TABEC PO SCH ×4 (09:10→19:58)
[2022-08-09] MEDS: OMEPRAZOLE 20MG CAP PO SCH (09:10)
[2022-08-09] MEDS: ATORVASTATIN 10 MG TAB PO SCH (09:10)
[2022-08-09] MEDS: CETIRIZINE (ZyrTEC) 10 MG TAB PO SCH (09:10)
[2022-08-09] MEDS: FERROUS SULFATE 325MG TAB PO SCH (09:10)
[2022-08-09] MEDS: BUDESONIDE EC 3MG CAP (ENTOCORT EC) PO SCH (09:11)
[2022-08-09] MEDS: MORPHINE 4 MG/ML 1ML VIAL IV PRN ×2 (12:51→18:56)
[2022-08-09] MEDS: SODIUM CHLORIDE 0.9% INJ 10 ML SYR IV SCH (13:00)
[2022-08-09] MEDS ORDERED: SODIUM CHLORIDE 0.9% INJ 10 ML SYR IV PRN (13:00)
[2022-08-09] MEDS: PROCHLORPERAZINE 10MG 2ML VIAL IV PRN (13:01)
[2022-08-09 13:54] VITALS: BP 196/120
[2022-08-09 14:00] VITALS: BP 190/118
[2022-08-09] MEDS ORDERED: MORPHINE 4 MG/ML 1ML VIAL IV ONE ×2 (14:00)
[2022-08-09 14:30] VITALS: BP 152/76
[2022-08-09 16:00] VITALS: BP 152/66
[2022-08-09] MEDS: FAMOTIDINE 20 MG TAB PO SCH (19:58)
[2022-08-09 22:00] VITALS: BP 154/78
[2022-08-10] VITALS (9 sets, daily range): BP systolic 142–198; BP diastolic 74–100
[2022-08-10] MEDS: MORPHINE 4 MG/ML 1ML VIAL IV PRN ×2 (02:12→13:19)
[2022-08-10] MEDS: ACETAMINOPHEN TAB 650MG DOSE (2X325MG) PO PRN ×4 (02:25→22:33)
[2022-08-10] MEDS: LevoFLOXacin IV 750 MG in IV 1 EA IV SCH (05:43)
[2022-08-10 06:13] LABS: EOS % 0.7 % (0.0-3.0); HEMATOCRIT 27.7 % (36.0-47.0); HEMOGLOBIN 9.1 g/dl (12.0-15.5); LYMPH # 1.1 10^3/uL (1.5-5.0); LYMPH % 25.4 % (24.0-44.0); MEAN CORPUSCULAR HEMOGLOBIN 39.7 pg (27.0-33.0); MEAN CORPUSCULAR HGB CONC 32.9 g/dl (32.0-36.5); MONO # 0.8 10^3/uL (0.0-0.8); MONO % 17.4 % (2.0-8.0); NEUTROPHILS # 2.5 10^3/uL (1.5-8.5); NEUTROPHILS % 55.6 % (36.0-66.0); PLATELET COUNT, AUTOMATED 150 10^3/uL (150-450); RED BLOOD COUNT 2.29 10^6/uL (4.00-5.40); WHITE BLOOD COUNT 4.5 10^3/uL (4.0-10.0)
[2022-08-10 06:44] LABS: BLOOD UREA NITROGEN 8 MG/DL (9-23); CALCIUM LEVEL 8.6 MG/DL (8.3-10.6); CARBON DIOXIDE LEVEL 27 MMOL/L (20-31); CHLORIDE LEVEL 104 MMOL/L (98-107); CREATININE FOR GFR 0.73 MG/DL (0.55-1.30); GLOMERULAR FILTRATION RATE > 60.0 (>45); GLUCOSE, FASTING 87 MG/DL (74-106); MAGNESIUM LEVEL 1.6 MG/DL (1.8-2.4); POTASSIUM SERUM 3.5 MMOL/L (3.5-5.1); SODIUM LEVEL 138 MMOL/L (136-145)
[2022-08-10 07:04] LABS: ANISOCYTOSIS 1+; PLATELET ESTIMATE NORMAL (NORMAL)
[2022-08-10 07:05] LABS: POLYCHROMASIA 1+
[2022-08-10] MEDS ORDERED: MAGNESIUM OXIDE 400MG TAB (MAG-OX) PO ONE (07:05)
[2022-08-10] MEDS: LYNPARZA 150 MG PO SCH ×2 (09:38→21:29)
[2022-08-10] MEDS: sulfaSALAzine 500 MG TABEC PO SCH ×4 (09:39→21:27)
[2022-08-10] MEDS: PHENAZOPYRIDINE 100 MG TAB PO SCH (09:39)
[2022-08-10] MEDS: FERROUS SULFATE 325MG TAB PO SCH (09:43)
[2022-08-10] MEDS: APIXABAN 5 MG TAB (ELIQUIS) PO SCH ×2 (09:43→21:27)
[2022-08-10] MEDS: oxyCODONE 20MG CR TAB PO SCH ×3 (09:43→21:28)
[2022-08-10] MEDS: BUDESONIDE EC 3MG CAP (ENTOCORT EC) PO SCH (09:43)
[2022-08-10] MEDS: CETIRIZINE (ZyrTEC) 10 MG TAB PO SCH (09:44)
[2022-08-10] MEDS: predniSONE 10 MG TAB PO SCH (09:45)
[2022-08-10] MEDS: ATORVASTATIN 10 MG TAB PO SCH (09:46)
[2022-08-10] MEDS: OMEPRAZOLE 20MG CAP PO SCH (09:46)
[2022-08-10] MEDS: SODIUM CHLORIDE 0.9% INJ 10 ML SYR IV SCH (09:48)
[2022-08-10] MEDS ORDERED: PILL CUTTER 1 EACH XX ONE (09:51)
[2022-08-10] MEDS: oxyBUTYnin 5 MG TAB PO SCH ×2 (13:59→21:27)
[2022-08-10] MEDS: oxyCODONE 5MG TAB PO PRN ×2 (14:02→23:03)
[2022-08-10] MEDS ORDERED: MIRALAX *UNIT DOSE* 17GM PACKET PO PRN (14:10)
[2022-08-10] MEDS ORDERED: PROMETHAZINE 25 MG TAB PO ONE (14:20)
[2022-08-10] MEDS ORDERED: LORazepam 1 MG TAB PO ONE (15:45)
[2022-08-10] MEDS ORDERED: oxyBUTYnin 5 MG TAB PO SCH (16:00)
[2022-08-10] MEDS ORDERED: LORazepam 1 MG TAB PO PRN (16:00)
[2022-08-10] MEDS ORDERED: PHENAZOPYRIDINE 100 MG TAB PO PRN (16:00)
[2022-08-10] MEDS: FAMOTIDINE 20 MG TAB PO SCH (21:28)
[2022-08-10] MEDS: PHENAZOPYRIDINE 100 MG TAB PO PRN (23:00)
[2022-08-10] MEDS: PROCHLORPERAZINE 10MG 2ML VIAL IV PRN (23:03)
[2022-08-11] MEDS: ACETAMINOPHEN TAB 650MG DOSE (2X325MG) PO PRN ×3 (05:53→15:12)
[2022-08-11] MEDS: oxyCODONE 5MG TAB PO PRN ×2 (05:54→11:41)
[2022-08-11 06:00] VITALS: BP 167/85
[2022-08-11] MEDS: PHENAZOPYRIDINE 100 MG TAB PO PRN ×2 (06:12→10:45)
[2022-08-11 06:23] LABS: EOS % 0.2 % (0.0-3.0); HEMATOCRIT 29.3 % (36.0-47.0); HEMOGLOBIN 9.7 g/dl (12.0-15.5); LYMPH # 1.1 10^3/uL (1.5-5.0); LYMPH % 25.9 % (24.0-44.0); MEAN CORPUSCULAR HEMOGLOBIN 39.6 pg (27.0-33.0); MEAN CORPUSCULAR HGB CONC 33.1 g/dl (32.0-36.5); MONO # 0.9 10^3/uL (0.0-0.8); MONO % 20.2 % (2.0-8.0); NEUTROPHILS # 2.3 10^3/uL (1.5-8.5); PLATELET COUNT, AUTOMATED 158 10^3/uL (150-450); RED BLOOD COUNT 2.45 10^6/uL (4.00-5.40); WHITE BLOOD COUNT 4.4 10^3/uL (4.0-10.0)
[2022-08-11 06:25] LABS: MEAN CORPUSCULAR VOLUME 119.6 fl (80.0-96.0)
[2022-08-11 06:43] LABS: BLOOD UREA NITROGEN 11 MG/DL (9-23); CALCIUM LEVEL 9.2 MG/DL (8.3-10.6); CARBON DIOXIDE LEVEL 26 MMOL/L (20-31); CHLORIDE LEVEL 102 MMOL/L (98-107); CREATININE FOR GFR 0.86 MG/DL (0.55-1.30); GLOMERULAR FILTRATION RATE > 60.0 (>45); GLUCOSE, FASTING 107 MG/DL (74-106); MAGNESIUM LEVEL 1.5 MG/DL (1.8-2.4); POTASSIUM SERUM 3.1 MMOL/L (3.5-5.1); SODIUM LEVEL 138 MMOL/L (136-145)
[2022-08-11 06:56] LABS: ANISOCYTOSIS 1+; OVALOCYTES 1+; PLATELET ESTIMATE NORMAL (NORMAL)
[2022-08-11 06:57] LABS: POLYCHROMASIA 1+
[2022-08-11] MEDS ORDERED: MAGNESIUM OXIDE 400MG TAB (MAG-OX) PO ONE (07:50)
[2022-08-11] MEDS ORDERED: POTASSIUM CHLORIDE 10MEQ SR TABLET PO ONE (07:50)
[2022-08-11] MEDS: oxyBUTYnin 5 MG TAB PO SCH ×2 (09:00→15:12)
[2022-08-11] MEDS: predniSONE 10 MG TAB PO SCH (09:00)
[2022-08-11] MEDS ORDERED: AMITRIPTYLINE 10MG TABLET PO SCH (10:10)
[2022-08-11] MEDS: OMEPRAZOLE 20MG CAP PO SCH (10:44)
[2022-08-11] MEDS: sulfaSALAzine 500 MG TABEC PO SCH ×2 (10:46→14:31)
[2022-08-11] MEDS: CETIRIZINE (ZyrTEC) 10 MG TAB PO SCH (10:48)
[2022-08-11] MEDS: FERROUS SULFATE 325MG TAB PO SCH (10:48)
[2022-08-11] MEDS: BUDESONIDE EC 3MG CAP (ENTOCORT EC) PO SCH (10:48)
[2022-08-11] MEDS: ATORVASTATIN 10 MG TAB PO SCH (10:48)
[2022-08-11] MEDS: APIXABAN 5 MG TAB (ELIQUIS) PO SCH (10:50)
[2022-08-11] MEDS: oxyCODONE 20MG CR TAB PO SCH ×2 (10:52→15:13)
[2022-08-11] MEDS: LYNPARZA 150 MG PO SCH (10:54)
[2022-08-11] MEDS: PROCHLORPERAZINE 10MG 2ML VIAL IV PRN (11:38)
[2022-08-11] MEDS: SODIUM CHLORIDE 0.9% INJ 10 ML SYR IV SCH (11:42)
[2022-08-11 11:56] LABS: FERRITIN 882.7 NG/ML (7.3-270.7)
[2022-08-11 11:59] LABS: FOLATE 15.6 NG/ML (>5.4); PERCENT SATURATION 32.4 % (13.2-45.0)
[2022-08-11 14:00] VITALS: BP 164/87
[2022-08-11] MEDS ORDERED: PRED10TA2 PO (15:23)
[2022-08-11] MEDS ORDERED: AMIT10TA7 PO (15:23)
[2022-08-11] MEDS ORDERED: OXYB5TAB10 PO (15:23)
[2022-08-16] MEDS ORDERED: predniSONE 10 MG TAB PO SCH (09:00)
[2022-08-23] MEDS ORDERED: predniSONE 10 MG TAB PO SCH (09:00)
[2022-08-30] MEDS ORDERED: predniSONE 5 MG TAB PO SCH (09:00)
[2022-09-06] MEDS ORDERED: predniSONE 10 MG TAB PO SCH (09:00)
[2022-09-13] MEDS ORDERED: predniSONE 5 MG TAB PO SCH (09:00)
== END 2022-08-11 16:30 | disposition home or self-care (01) | DRG 386 ==
LOC: M ED 20:52 → M MSPAV 08-08 01:57 → M ED INP 08-08 01:57 → ENRESERV 08-08 04:55 → M MSPAV 08-08 05:29
PROVIDERS: ADMIT Family Medicine; ATTEND Student in an Organized Health Care Education/Training Program
DX: K51.90 Ulcerative colitis, unspecified, without complications (principal); N39.0 Urinary tract infection, site not specified; C79.9 Secondary malignant neoplasm of unspecified site; N13.0 Hydronephrosis with ureteropelvic junction obstruction; K57.32 Diverticulitis of large intestine without perforation or abscess without bleeding; G89.29 Other chronic pain; E78.5 Hyperlipidemia, unspecified; I10 Essential (primary) hypertension; N30.10 Interstitial cystitis (chronic) without hematuria; J45.909 Unspecified asthma, uncomplicated; E87.6 Hypokalemia; E83.42 Hypomagnesemia; C54.1 Malignant neoplasm of endometrium; N32.81 Overactive bladder; K21.9 Gastro-esophageal reflux disease without esophagitis; K62.7 Radiation proctitis; Z93.6 Other artificial openings of urinary tract status; Z79.01 Long term (current) use of anticoagulants; Z79.82 Long term (current) use of aspirin; Z79.52 Long term (current) use of systemic steroids; Z79.890 Hormone replacement therapy; Z79.899 Other long term (current) drug therapy; Z86.718 Personal history of other venous thrombosis and embolism

== ENCOUNTER → 2022-08-31 | Outpatient (REF) | payer MEDICARE ==
[~2022-08-31] MED LIST changes: +ACET1TAB55 PO; +AMIT10TA7 PO; +CIPR500S PO; +LISI5TAB11 PO; +OXYB-54 PO; +OXYB5TAB10 PO; +OXYC-405 PO; +SIME80CH5 PO; +SUCR1SS PO
[2022-08-31 14:04] LABS: BASO % 0.1 % (0.0-1.0); HEMATOCRIT 28.4 % (36.0-47.0); HEMOGLOBIN 9.4 g/dl (12.0-15.5); LYMPH # 0.3 10^3/uL (1.5-5.0); LYMPH % 3.6 % (24.0-44.0); MEAN CORPUSCULAR HEMOGLOBIN 37.8 pg (27.0-33.0); MEAN CORPUSCULAR HGB CONC 33.1 g/dl (32.0-36.5); MONO # 0.3 10^3/uL (0.0-0.8); MONO % 3.9 % (2.0-8.0); NEUTROPHILS # 6.5 10^3/uL (1.5-8.5); NEUTROPHILS % 91.4 % (36.0-66.0); PLATELET COUNT, AUTOMATED 107 10^3/uL (150-450); RED BLOOD COUNT 2.49 10^6/uL (4.00-5.40); WHITE BLOOD COUNT 7.2 10^3/uL (4.0-10.0)
[2022-08-31 14:21] LABS: MEAN CORPUSCULAR VOLUME 114.1 fl (80.0-96.0)
[2022-08-31 14:48] LABS: ANISOCYTOSIS 1+
[2022-08-31 14:49] LABS: HELMET CELLS 1+; SPHEROCYTES 1+
[2022-08-31 14:50] LABS: PLATELET ESTIMATE DECREASED (NORMAL)
[2022-08-31 15:46] LABS: ALBUMIN 3.4 G/DL (3.2-5.2); ALKALINE PHOSPHATASE 57 U/L (46-116); ALT/SGPT 23 U/L (7.0-40); AST/SGOT 20 U/L (<34); BILIRUBIN,TOTAL 0.5 MG/DL (0.3-1.2); BLOOD UREA NITROGEN 17 MG/DL (9-23); CARBON DIOXIDE LEVEL 29 MMOL/L (20-31); CHLORIDE LEVEL 94 MMOL/L (98-107); GLUCOSE, FASTING 155 MG/DL (74-106); POTASSIUM SERUM 3.5 MMOL/L (3.5-5.1); SODIUM LEVEL 132 MMOL/L (136-145)
[2022-08-31 16:09] LABS: TOTAL PROTEIN 5.5 G/DL (5.7-8.2)
[2022-08-31 19:52] LABS: CREATININE FOR GFR 0.66 MG/DL (0.55-1.30); GLOMERULAR FILTRATION RATE > 60.0 (>45)
== END ==
LOC: M LAB REF 13:12
PROVIDERS: ATTEND Internal Medicine Hematology & Oncology
DX: C57.9 Malignant neoplasm of female genital organ, unspecified (principal); Z09 Encounter for follow-up examination after completed treatment for conditions other than malignant neoplasm

== ENCOUNTER → 2022-09-07 | Outpatient (POV) | payer MEDICARE ==
[~2022-09-07] VITALS: Ht 157.5 cm; Wt 66.8 kg
[~2022-09-07] MED LIST changes: +GABA-1171 PO; +LOMO2.5T PO; +OXYB10TA23 PO; -OXYC-404 PO; -OXYC-405 PO; +OXYC20TA64 PO; +OXYC40TA40 PO
[2022-09-07 08:15] VITALS: BP 140/81
== END ==
LOC: M IRPOV 07:59
PROVIDERS: ATTEND Radiology Diagnostic Radiology
DX: N13.30 Unspecified hydronephrosis (principal); C79.11 Secondary malignant neoplasm of bladder; K51.918 Ulcerative colitis, unspecified with other complication; Z79.891 Long term (current) use of opiate analgesic; Z79.899 Other long term (current) drug therapy; Z85.44 Personal history of malignant neoplasm of other female genital organs; Z86.73 Personal history of transient ischemic attack (TIA), and cerebral infarction without residual deficits; Z88.0 Allergy status to penicillin; Z90.710 Acquired absence of both cervix and uterus; Z91.030 Bee allergy status; Z92.21 Personal history of antineoplastic chemotherapy; Z92.3 Personal history of irradiation; Z95.828 Presence of other vascular implants and grafts; Z96.652 Presence of left artificial knee joint

== ENCOUNTER → 2022-09-09 | Outpatient (CLI) | payer MEDICARE ==
[~2022-09-09] VITALS: Ht 157.5 cm; Wt 67.7 kg
[2022-09-09 08:48] VITALS: BP 121/83
== END ==
LOC: M PAL 08:34
PROVIDERS: ATTEND Nurse Practitioner Adult Health
DX: C55 Malignant neoplasm of uterus, part unspecified (principal); G89.3 Neoplasm related pain (acute) (chronic); R10.9 Unspecified abdominal pain; Z51.5 Encounter for palliative care; K51.90 Ulcerative colitis, unspecified, without complications; Z93.6 Other artificial openings of urinary tract status; Z92.21 Personal history of antineoplastic chemotherapy; D64.9 Anemia, unspecified; N32.89 Other specified disorders of bladder; K21.9 Gastro-esophageal reflux disease without esophagitis; Z86.718 Personal history of other venous thrombosis and embolism; I10 Essential (primary) hypertension; Z80.1 Family history of malignant neoplasm of trachea, bronchus and lung; Z79.891 Long term (current) use of opiate analgesic; Z79.899 Other long term (current) drug therapy; Z88.0 Allergy status to penicillin; Z79.51 Long term (current) use of inhaled steroids; Z91.030 Bee allergy status

== ENCOUNTER → 2022-09-09 | Outpatient (CLI) | payer MEDICARE | LOC: M LABSMTC 10:08 | PROVIDERS: ATTEND Anesthesiology | DX: Z11.52 Encounter for screening for COVID-19 (principal) ==

== ENCOUNTER → 2022-09-13 | Outpatient (CLI) | payer MEDICARE ==
[~2022-09-13] MED LIST changes: +CIPROFLOXACIN 400 MG in IV 1 EA IV ONE; +CIPROFLOXACIN/D5W 400 MG/200 ML BAG As Ordered ONE; +ISOVUE-300 61% 100ML VIAL As Ordered ONE; +LIDOCAINE 1% MDV 20ML VIAL As Ordered ONE; +MIDAZOLAM INJ 2MG/2ML VIAL As Ordered ONE; +diphenhydrAMINE 50MG/ML VIAL As Ordered ONE; +fentaNYL 100 MCG/2 ML INJECTION As Ordered ONE
[2022-09-13] MEDS: NS 1,000 ML IV SCH ×2 (13:21→13:53)
[2022-09-13 16:30] VITALS: BP 137/57
== END ==
LOC: M IRPRO 12:53
PROVIDERS: ATTEND Radiology Diagnostic Radiology
DX: N13.9 Obstructive and reflux uropathy, unspecified (principal); Z79.01 Long term (current) use of anticoagulants; Z79.891 Long term (current) use of opiate analgesic; Z79.899 Other long term (current) drug therapy; Z88.0 Allergy status to penicillin; Z91.030 Bee allergy status
CPT/HCPCS: 50389; 50432; 99152; C1729; C1769; J1200; J2250; J3010; Q9967

== ENCOUNTER → 2022-09-16 | Outpatient (REF) | payer MEDICARE ==
[~2022-09-16] MED LIST changes: -CIPROFLOXACIN 400 MG in IV 1 EA IV ONE; -CIPROFLOXACIN/D5W 400 MG/200 ML BAG As Ordered ONE; -ISOVUE-300 61% 100ML VIAL As Ordered ONE; -LIDOCAINE 1% MDV 20ML VIAL As Ordered ONE; -MIDAZOLAM INJ 2MG/2ML VIAL As Ordered ONE; -diphenhydrAMINE 50MG/ML VIAL As Ordered ONE; -fentaNYL 100 MCG/2 ML INJECTION As Ordered ONE
[2022-09-16 13:18] LABS: HEMATOCRIT 28.1 % (36.0-47.0); HEMOGLOBIN 9.3 g/dl (12.0-15.5); LYMPH # 0.2 10^3/uL (1.5-5.0); MEAN CORPUSCULAR HEMOGLOBIN 37.3 pg (27.0-33.0); MEAN CORPUSCULAR HGB CONC 33.1 g/dl (32.0-36.5); MEAN CORPUSCULAR VOLUME 112.9 fl (80.0-96.0); MONO # 0.2 10^3/uL (0.0-0.8); MONO % 4.5 % (2.0-8.0); NEUTROPHILS # 3.6 10^3/uL (1.5-8.5); PLATELET COUNT, AUTOMATED 100 10^3/uL (150-450); RED BLOOD COUNT 2.49 10^6/uL (4.00-5.40)
[2022-09-16 13:58] LABS: ALBUMIN 3.2 G/DL (3.2-5.2); ALKALINE PHOSPHATASE 54 U/L (46-116); ALT/SGPT 23 U/L (7.0-40); AST/SGOT 18 U/L (<34); BILIRUBIN,TOTAL 0.4 MG/DL (0.3-1.2); BLOOD UREA NITROGEN 24 MG/DL (9-23); CARBON DIOXIDE LEVEL 27 MMOL/L (20-31); CHLORIDE LEVEL 96 MMOL/L (98-107); CREATININE FOR GFR 0.71 MG/DL (0.55-1.30); GLOMERULAR FILTRATION RATE > 60.0 (>45); GLUCOSE, FASTING 188 MG/DL (74-106); POTASSIUM SERUM 3.9 MMOL/L (3.5-5.1); SODIUM LEVEL 132 MMOL/L (136-145); TOTAL PROTEIN 5.4 G/DL (5.7-8.2)
== END ==
LOC: M LAB REF 12:54
PROVIDERS: ATTEND Internal Medicine Hematology & Oncology
DX: C57.9 Malignant neoplasm of female genital organ, unspecified (principal); Z09 Encounter for follow-up examination after completed treatment for conditions other than malignant neoplasm

== ENCOUNTER → 2022-09-24 | Outpatient (CLI) | payer MEDICARE ==
[~2022-09-24] MED LIST changes: +FLUC100T3 PO; +GNP250TA9 PO; +MESA0.37 PO; +PHEN1TAB73 PO
== END ==
LOC: M ONCR 12:37
PROVIDERS: ATTEND General Practice
DX: C54.1 Malignant neoplasm of endometrium (principal); K52.9 Noninfective gastroenteritis and colitis, unspecified; R22.41 Localized swelling, mass and lump, right lower limb; Z79.01 Long term (current) use of anticoagulants; Z79.899 Other long term (current) drug therapy; Z88.0 Allergy status to penicillin; Z91.030 Bee allergy status; Z92.21 Personal history of antineoplastic chemotherapy; Z92.3 Personal history of irradiation; Z93.6 Other artificial openings of urinary tract status

== ENCOUNTER → 2022-09-24 | Outpatient (CLI) | payer MEDICARE ==
[~2022-09-24] MED LIST changes: -FLUC100T3 PO; -GNP250TA9 PO; -MESA0.37 PO; -PHEN1TAB73 PO
== END ==
LOC: M RAD 11:12
PROVIDERS: ATTEND Internal Medicine Hematology & Oncology
DX: M79.89 Other specified soft tissue disorders (principal)

== ENCOUNTER → 2022-09-28 | Outpatient (CLI) | payer MEDICARE ==
[~2022-09-28] VITALS: Ht 157.5 cm; Wt 66.4 kg
[~2022-09-28] MED LIST changes: +FLUC100T3 PO; +GNP250TA9 PO; +MESA0.37 PO; +PHEN1TAB73 PO
[2022-09-28 13:13] VITALS: BP 97/59
== END ==
LOC: M PAL 13:06
PROVIDERS: ATTEND Nurse Practitioner Adult Health
DX: C55 Malignant neoplasm of uterus, part unspecified (principal); G89.3 Neoplasm related pain (acute) (chronic); R10.9 Unspecified abdominal pain; Z51.5 Encounter for palliative care; K51.90 Ulcerative colitis, unspecified, without complications; Z93.6 Other artificial openings of urinary tract status; Z92.21 Personal history of antineoplastic chemotherapy; D64.9 Anemia, unspecified; N32.89 Other specified disorders of bladder; K21.9 Gastro-esophageal reflux disease without esophagitis; Z86.718 Personal history of other venous thrombosis and embolism; I10 Essential (primary) hypertension; Z80.1 Family history of malignant neoplasm of trachea, bronchus and lung; Z79.891 Long term (current) use of opiate analgesic; Z79.899 Other long term (current) drug therapy; Z88.0 Allergy status to penicillin; Z79.51 Long term (current) use of inhaled steroids; Z91.030 Bee allergy status

== ENCOUNTER → 2022-09-28 | Outpatient (POV) | payer MEDICARE ==
[~2022-09-28] VITALS: Ht 157.5 cm; Wt 65.9 kg
[2022-09-28 14:25] VITALS: BP 116/62
== END ==
LOC: M IRPOV 14:14
PROVIDERS: ATTEND Radiology Diagnostic Radiology
DX: Z43.6 Encounter for attention to other artificial openings of urinary tract (principal); N13.9 Obstructive and reflux uropathy, unspecified; N32.89 Other specified disorders of bladder; Z92.3 Personal history of irradiation; Z88.0 Allergy status to penicillin; Z91.030 Bee allergy status

== ENCOUNTER 2022-10-03 16:00 | Inpatient (IN) | payer MEDICARE ==
[~2022-10-03] VITALS: Ht 157.5 cm; Wt 71.5 kg
[2022-10-03] VITALS (101 sets, daily range): BP systolic 37–154; BP diastolic 20–76
[2022-10-03] MEDS ORDERED: LIDOCAINE 2% 5ML JELLY UROJET TOP ONE ×4 (16:05→19:15)
[2022-10-03] MEDS ORDERED: NS 1,000 ML IV ONE (16:20)
[2022-10-03] MEDS ORDERED: LevoFLOXacin IV 750 MG in IV 1 EA IV ONE (16:30)
[2022-10-03 16:54] LABS: LYMPH # 0.1 10^3/uL (1.5-5.0); MEAN CORPUSCULAR HEMOGLOBIN 36.6 pg (27.0-33.0); MEAN CORPUSCULAR HGB CONC 33.3 g/dl (32.0-36.5); MEAN CORPUSCULAR VOLUME 109.8 fl (80.0-96.0); NEUTROPHILS % 12.5 % (36.0-66.0); RED BLOOD COUNT 1.53 10^6/uL (4.00-5.40)
[2022-10-03] MEDS ORDERED: ACETAMINOPHEN 650MG SUPP PR ONE (16:55)
[2022-10-03 16:58] LABS: HEMATOCRIT 16.8 % (36.0-47.0)
[2022-10-03] MEDS ORDERED: ISOVUE-370 76% 100ML VIAL As Ordered ONE (16:59)
[2022-10-03 17:01] LABS: HEMOGLOBIN 5.6 g/dl (12.0-15.5)
[2022-10-03 17:18] LABS: WHITE BLOOD COUNT 0.1 10^3/uL (4.0-10.0)
[2022-10-03 17:21] LABS: RSV AMPLIFICATION NEGATIVE (NEGATIVE)
[2022-10-03 17:21] LABS: PLATELET COUNT, AUTOMATED 8 10^3/uL (150-450)
[2022-10-03 17:29] LABS: INR 2.16; PROTHROMBIN TIME 24.5 SECONDS (12.5-14.5)
[2022-10-03 17:30] LABS: PARTIAL THROMBOPLASTIN TIME 44.7 SECONDS (24.8-34.2)
[2022-10-03 17:31] LABS: OSMOLALITY SERUM 283 MOSM/KG (280-301)
[2022-10-03 17:48] LABS: ACETAMINOPHEN LEVEL < 2.0 UG/ML (10.0-20.0); ALBUMIN 1.8 G/DL (3.2-5.2); ALKALINE PHOSPHATASE 94 U/L (46-116); ALT/SGPT 48 U/L (7.0-40); AST/SGOT 27 U/L (<34); BILIRUBIN,DIRECT 0.4 MG/DL (<0.4); BILIRUBIN,TOTAL 0.7 MG/DL (0.3-1.2); BLOOD UREA NITROGEN 31 MG/DL (9-23); CALCIUM LEVEL 7.8 MG/DL (8.3-10.6); CARBON DIOXIDE LEVEL 28 MMOL/L (20-31); CHLORIDE LEVEL 94 MMOL/L (98-107); CK-MB VALUE MASS < 1.0 NG/ML (<3.6); CPK CREATINE PHOSPHOKINASE 49 U/L (34-145); CREATININE FOR GFR 1.05 MG/DL (0.55-1.30); ETHYL ALCOHOL (ETHANOL) < 0.003 % (0.000-0.010); GLOMERULAR FILTRATION RATE 55.3 (>45); GLUCOSE, FASTING 227 MG/DL (74-106); MB/CK RELATIVE INDEX 2.04 (< OR =4); POTASSIUM SERUM 3.6 MMOL/L (3.5-5.1); SALICYLATE LEVEL < 3.0 MG/DL (<30); SODIUM LEVEL 132 MMOL/L (136-145); THYROID STIMULATING HORMONE 0.955 uIU/ML (0.55-4.78); TOTAL PROTEIN 4.8 G/DL (5.7-8.2)
[2022-10-03] MEDS ORDERED: NS 1,050 ML in IV 1 EA IV ONE (17:50)
[2022-10-03 17:59] LABS: MAGNESIUM LEVEL 1.1 MG/DL (1.8-2.4)
[2022-10-03] MEDS ORDERED: NOREPINEPHRINE 4MG IN D5 250ML 4 MG in IV 1 EA IV SCH ×2 (18:00)
[2022-10-03] MEDS ORDERED: VASOPRESSIN INJ 20 UNITS in NS 500 ML IV SCH (18:30)
[2022-10-03] MEDS ORDERED: MIDAZOLAM 5MG/ML 1ML VIAL As Ordered ONE (18:45)
[2022-10-03] MEDS ORDERED: fentaNYL CITRATE/NaCl 1,000 MCG in IV 1 EA IV SCH (18:45)
[2022-10-03] MEDS ORDERED: ETOMIDATE INJ 20MG/10ML VIAL IV ONE (18:45)
[2022-10-03] MEDS ORDERED: fentaNYL 100 MCG/2 ML INJECTION As Ordered ONE (18:45)
[2022-10-03] MEDS ORDERED: FENTANYL DRIP LOCK BOX KEY 1 EACH XX PRN ×2 (18:45→22:15)
[2022-10-03] MEDS ORDERED: SUCCINYLCHOLINE INJ 200MG/10ML VIAL IV ONE (18:45)
[2022-10-03] MEDS ORDERED: MIDAZOLAM 100MG/100ML-0.9%NACL 100 MG in IV 1 EA IV SCH (18:45)
[2022-10-03] MEDS ORDERED: VASOPRESSIN INJ 20UNITS/ML 1ML VIAL As Ordered ONE (18:47)
[2022-10-03] MEDS: NOREPINEPHRINE 4MG IN D5 250ML 4 MG in IV 1 EA IV SCH ×4 (19:00→23:22)
[2022-10-03] MEDS ORDERED: HYDROCORTISONE 100MG/2ML VIAL IV ONE (19:00)
[2022-10-03 19:06] LABS: CK-MB VALUE MASS < 1.0 NG/ML (<3.6); CPK CREATINE PHOSPHOKINASE 42 U/L (34-145); MB/CK RELATIVE INDEX 2.38 (< OR =4)
[2022-10-03] MEDS ORDERED: fentaNYL 100 MCG/2 ML INJECTION IV ONE (19:10)
[2022-10-03] MEDS ORDERED: MIDAZOLAM INJ 2MG/2ML VIAL IV ONE ×3 (19:10→20:00)
[2022-10-03] MEDS ORDERED: VANCOMYCIN HCL 1,000 MG, VIAL MATE ADAPTER 1 EACH in NS 250 ML IV SCH (19:10)
[2022-10-03] MEDS: fentaNYL CITRATE/NaCl 1,000 MCG in IV 1 EA IV SCH ×2 (19:13→22:10)
[2022-10-03] MEDS: MIDAZOLAM 100MG/100ML-0.9%NACL 100 MG in IV 1 EA IV SCH (19:13)
[2022-10-03 19:22] LABS: ABG BASE EXCESS -1.5 (-2.0-2.0); ABG HCO3 22.2 MEQ/L (22.0-26.0); ABG O2 SATURATION 99.7 % (95.0-99.0); ABG PARTIAL PRESSURE CO2 32.4 mmHg (35.0-45.0); ABG PARTIAL PRESSURE O2 306.3 mmHg (75.0-100.0); ABG STANDARD HCO3 23.2 MEQ/L (22.0-26.0); ABG TOTAL CO2 23.2 MEQ/L (23.0-31.0); ABG pH (ARTERIAL) 7.453 UNITS (7.350-7.450)
[2022-10-03] MEDS ORDERED: PHENYLEPHRINE 10MG/ML 1ML VIAL As Ordered ONE (19:41)
[2022-10-03] MEDS ORDERED: EPINEPHrine INJ 1 MG/ML 1ML AMP As Ordered ONE (19:45)
[2022-10-03] MEDS ORDERED: EPINEPHrine HCL INJ 1 MG in D5W 240 ML IV SCH (19:45)
[2022-10-03] MEDS ORDERED: PHENYLEPHRINE HCL INJ 50 MG in D5W 495 ML IV SCH (19:45)
[2022-10-03] MEDS: metroNIDAZOLE 500 MG in IV 1 EA IV SCH (20:00)
[2022-10-03] MEDS ORDERED: PRED10TA2 PO (20:13)
[2022-10-03] MEDS ORDERED: FURO20TA2 PO (20:16)
[2022-10-03] MEDS ORDERED: NYST-38 SS (20:16)
[2022-10-03] MEDS ORDERED: MESA1000 PR (20:18)
[2022-10-03] MEDS ORDERED: GLYC1TAB18 PO (20:18)
[2022-10-03] MEDS ORDERED: HOME MED LIST COMPLETE! XX SCH (20:20)
[2022-10-03] MEDS: CHLORHEXIDINE GLUCONATE 0.12 % 15ML UDC (PERIDEX ORAL RINSE) MT SCH (21:00)
[2022-10-03] MEDS: NS 1,000 ML IV SCH (21:00)
[2022-10-03] MEDS: FILGRASTIM 300MCG 0.5ML SYRINGE **SC ADMINISTRATION ONLY SC SCH (21:00)
[2022-10-03] MEDS: IPRATROPIUM 0.5MG/ALBUTEROL 2.5MG INH SOL UD 3ML (DUONEB) NEB SCH (21:10)
[2022-10-03 21:11] LABS: HEMATOCRIT 24.6 % (36.0-47.0); MEAN CORPUSCULAR HEMOGLOBIN 32.7 pg (27.0-33.0); MEAN CORPUSCULAR HGB CONC 33.3 g/dl (32.0-36.5); RED BLOOD COUNT 2.51 10^6/uL (4.00-5.40)
[2022-10-03 21:16] LABS: PLATELET COUNT, AUTOMATED 22 10^3/uL (150-450); WHITE BLOOD COUNT 0.1 10^3/uL (4.0-10.0)
[2022-10-03 21:17] LABS: HEMOGLOBIN 8.2 g/dl (12.0-15.5)
[2022-10-03 21:33] LABS: ALBUMIN 1.4 G/DL (3.2-5.2); ALKALINE PHOSPHATASE 87 U/L (46-116); ALT/SGPT 58 U/L (7.0-40); AST/SGOT 47 U/L (<34); BILIRUBIN,TOTAL 1.4 MG/DL (0.3-1.2); BLOOD UREA NITROGEN 26 MG/DL (9-23); CALCIUM LEVEL 6.1 MG/DL (8.3-10.6); CARBON DIOXIDE LEVEL 21 MMOL/L (20-31); CHLORIDE LEVEL 101 MMOL/L (98-107); CREATININE FOR GFR 0.87 MG/DL (0.55-1.30); GLOMERULAR FILTRATION RATE > 60.0 (>45); GLUCOSE, FASTING 238 MG/DL (74-106); SODIUM LEVEL 135 MMOL/L (136-145); TOTAL PROTEIN 3.7 G/DL (5.7-8.2)
[2022-10-03] MEDS: HYDROCORTISONE 100MG/2ML VIAL IV SCH (22:59)
[2022-10-03] MEDS ORDERED: MAG SULF 1GM/100ML (MAG RUN) 1 GM in IV 1 EA IV ONE (23:00)
[2022-10-03] MEDS: VASOPRESSIN INJ 20 UNITS in NS 499 ML IV SCH (23:01)
[2022-10-03 23:09] LABS: ABG BASE EXCESS -0.4 (-2.0-2.0); ABG HCO3 22.1 MEQ/L (22.0-26.0); ABG O2 SATURATION 99.7 % (95.0-99.0); ABG PARTIAL PRESSURE CO2 27.5 mmHg (35.0-45.0); ABG STANDARD HCO3 24.2 MEQ/L (22.0-26.0); ABG TOTAL CO2 22.9 MEQ/L (23.0-31.0); ABG pH (ARTERIAL) 7.522 UNITS (7.350-7.450)
[2022-10-03 23:45] LABS: HEMATOCRIT 21.3 % (36.0-47.0); MEAN CORPUSCULAR HEMOGLOBIN 32.3 pg (27.0-33.0); MEAN CORPUSCULAR HGB CONC 32.9 g/dl (32.0-36.5); MEAN CORPUSCULAR VOLUME 98.2 fl (80.0-96.0); RED BLOOD COUNT 2.17 10^6/uL (4.00-5.40)
[2022-10-03] MEDS: AZTREONAM 2 GM in D5W MINI-BAG PLUS 100 ML IV SCH (23:55)
[2022-10-03 23:57] LABS: PLATELET COUNT, AUTOMATED 27 10^3/uL (150-450); WHITE BLOOD COUNT 0.1 10^3/uL (4.0-10.0)
[2022-10-04] VITALS (108 sets, daily range): BP systolic 64–135; BP diastolic 43–91
[2022-10-04] MEDS ORDERED: KCL 10MEQ/100ML SWI (KRUN) 10 MEQ in IV 1 EA IV ONE ×2
[2022-10-04] MEDS ORDERED: VANCOMYCIN HCL 500 MG in D5W MINI-BAG PLUS 100 ML IV ONE (01:00)
[2022-10-04] MEDS ORDERED: VANCOMYCIN HCL 750 MG, VIAL MATE ADAPTER 1 EACH in D5W 250 ML IV ONE (01:00)
[2022-10-04] MEDS: PANTOPRAZOLE 40MG VIAL IV SCH ×2 (01:26→12:24)
[2022-10-04] MEDS: VASOPRESSIN INJ 20 UNITS in NS 499 ML IV SCH ×4 (03:51→22:17)
[2022-10-04] MEDS: NOREPINEPHRINE 4MG IN D5 250ML 4 MG in IV 1 EA IV SCH ×8 (04:00→19:52)
[2022-10-04] MEDS: HYDROCORTISONE 100MG/2ML VIAL IV SCH ×4 (04:04→21:56)
[2022-10-04] MEDS: metroNIDAZOLE 500 MG in IV 1 EA IV SCH ×3 (04:10→20:05)
[2022-10-04 04:13] LABS: HEMATOCRIT 25.6 % (36.0-47.0); HEMOGLOBIN 8.4 g/dl (12.0-15.5)
[2022-10-04 04:15] LABS: HEMATOCRIT 25.8 % (36.0-47.0); HEMOGLOBIN 8.3 g/dl (12.0-15.5); MEAN CORPUSCULAR HEMOGLOBIN 31.1 pg (27.0-33.0); MEAN CORPUSCULAR HGB CONC 32.2 g/dl (32.0-36.5); MEAN CORPUSCULAR VOLUME 96.6 fl (80.0-96.0); RED BLOOD COUNT 2.67 10^6/uL (4.00-5.40)
[2022-10-04 04:22] LABS: PLATELET COUNT, AUTOMATED 25 10^3/uL (150-450); WHITE BLOOD COUNT 0.2 10^3/uL (4.0-10.0)
[2022-10-04] MEDS: NS 1,000 ML IV SCH (05:19)
[2022-10-04 05:20] LABS: ALBUMIN 1.1 G/DL (3.2-5.2); ALKALINE PHOSPHATASE 76 U/L (46-116); ALT/SGPT 65 U/L (7.0-40); AST/SGOT 77 U/L (<34); BILIRUBIN,TOTAL 1.7 MG/DL (0.3-1.2); BLOOD UREA NITROGEN 26 MG/DL (9-23); CALCIUM LEVEL 5.6 MG/DL (8.3-10.6); CARBON DIOXIDE LEVEL 17 MMOL/L (20-31); CHLORIDE LEVEL 96 MMOL/L (98-107); CREATININE FOR GFR 0.86 MG/DL (0.55-1.30); GLOMERULAR FILTRATION RATE > 60.0 (>45); GLUCOSE, FASTING 486 MG/DL (74-106); MAGNESIUM LEVEL 1.3 MG/DL (1.8-2.4); POTASSIUM SERUM 2.9 MMOL/L (3.5-5.1); SODIUM LEVEL 128 MMOL/L (136-145); TOTAL PROTEIN 3.1 G/DL (5.7-8.2)
[2022-10-04] MEDS: MIDAZOLAM 100MG/100ML-0.9%NACL 100 MG in IV 1 EA IV SCH ×2 (05:21→21:55)
[2022-10-04] MEDS: KCL 20MEQ IN 100ML SWI (KRUN) 20 MEQ in IV 1 EA IV SCH ×6 (05:57→08:44)
[2022-10-04] MEDS: AZTREONAM 2 GM in D5W MINI-BAG PLUS 100 ML IV SCH (05:57)
[2022-10-04] MEDS ORDERED: MEROPENEM INJ 2 GM in NS 100 ML IV SCH (06:00)
[2022-10-04] MEDS ORDERED: ACETAMINOPHEN *IV* 1,000 MG IV ONE ×2 (06:00)
[2022-10-04 06:12] LABS: ABG BASE EXCESS -10.3 (-2.0-2.0); ABG O2 SATURATION 99.2 % (95.0-99.0); ABG PARTIAL PRESSURE CO2 21.7 mmHg (35.0-45.0); ABG PARTIAL PRESSURE O2 226.5 mmHg (75.0-100.0); ABG STANDARD HCO3 16.2 MEQ/L (22.0-26.0); ABG TOTAL CO2 13.7 MEQ/L (23.0-31.0); ABG pH (ARTERIAL) 7.397 UNITS (7.350-7.450)
[2022-10-04] MEDS: IPRATROPIUM 0.5MG/ALBUTEROL 2.5MG INH SOL UD 3ML (DUONEB) NEB SCH ×3 (07:25→20:33)
[2022-10-04] MEDS: CHLORHEXIDINE GLUCONATE 0.12 % 15ML UDC (PERIDEX ORAL RINSE) MT SCH ×2 (07:41→20:05)
[2022-10-04] MEDS ORDERED: FLUCONAZOLE 100 MG in IV 1 EA IV SCH (09:00)
[2022-10-04] MEDS ORDERED: PANTOPRAZOLE 40MG VIAL IV SCH (09:00)
[2022-10-04] MEDS ORDERED: CALCIUM CHLORIDE 10% 1 GM in D5W 100 ML IV SCH (09:00)
[2022-10-04] MEDS ORDERED: SODIUM CHLORIDE 0.9% 1000ML IV ONE (09:10)
[2022-10-04] MEDS: FLUCONAZOLE 100 MG in IV 1 EA IV SCH (09:48)
[2022-10-04] MEDS: OCTREOTIDE ACETATE 100MCG/ML VIAL **IV ADMINISTRATION ONLY IV SCH ×2 (09:54→17:12)
[2022-10-04] MEDS: VANCOMYCIN HCL 500 MG in D5W MINI-BAG PLUS 100 ML IV SCH ×2 (09:54→21:56)
[2022-10-04] MEDS: MEROPENEM INJ 1 GM in IV 1 EA IV SCH ×4 (10:00→18:56)
[2022-10-04] MEDS: INSULIN REGULAR IN 0.9 % NACL 100 UNIT in IV 1 EA IV SCH ×4 (10:07→19:09)
[2022-10-04] MEDS: CALCIUM GLUCONATE 1,000 MG in D5W MINI-BAG PLUS 100 ML IV SCH ×2 (10:10→12:13)
[2022-10-04] MEDS ORDERED: VASOPRESSIN INJ 20 UNITS in NS 499 ML IV SCH (10:45)
[2022-10-04] MEDS: INSULIN IV RATE CHANGE DOCUMENTATION ML/HR XX SCH ×5 (11:06→21:01)
[2022-10-04] MEDS ORDERED: CIPROFLOXACIN 400 MG in IV 1 EA IV SCH (12:00)
[2022-10-04 13:38] LABS: AMPHETAMINES LEVEL URINE NEGATIVE (NEGATIVE); CANNABINOIDS URINE NEGATIVE (NEGATIVE); PHENCYCLIDINE URINE NEGATIVE (NEGATIVE)
[2022-10-04 13:39] LABS: BARBITURATES URINE NEGATIVE (NEGATIVE); BENZODIAZEPINES URINE NEGATIVE (NEGATIVE); COCAINE METABOLITE URINE NEGATIVE (NEGATIVE); METHADONE URINE NEGATIVE (NEGATIVE); OPIATES URINE POSITIVE (NEGATIVE)
[2022-10-04] MEDS ORDERED: ACETAMINOPHEN 1000MG 100ML IV BAG IV ONE (14:35)
[2022-10-04 16:10] LABS: HEMATOCRIT 26.6 % (36.0-47.0); HEMOGLOBIN 8.8 g/dl (12.0-15.5); MEAN CORPUSCULAR HEMOGLOBIN 30.6 pg (27.0-33.0); MEAN CORPUSCULAR HGB CONC 33.1 g/dl (32.0-36.5); MEAN CORPUSCULAR VOLUME 92.4 fl (80.0-96.0); RED BLOOD COUNT 2.88 10^6/uL (4.00-5.40)
[2022-10-04 16:13] LABS: PLATELET COUNT, AUTOMATED 9 10^3/uL (150-450); WHITE BLOOD COUNT 0.3 10^3/uL (4.0-10.0)
[2022-10-04 16:25] LABS: BLOOD UREA NITROGEN 26 MG/DL (9-23); CALCIUM LEVEL 6.3 MG/DL (8.3-10.6); CARBON DIOXIDE LEVEL 14 MMOL/L (20-31); CHLORIDE LEVEL 98 MMOL/L (98-107); CREATININE FOR GFR 0.83 MG/DL (0.55-1.30); GLOMERULAR FILTRATION RATE > 60.0 (>45); GLUCOSE, FASTING 339 MG/DL (74-106); MAGNESIUM LEVEL 1.2 MG/DL (1.8-2.4); POTASSIUM SERUM 3.6 MMOL/L (3.5-5.1); SODIUM LEVEL 127 MMOL/L (136-145)
[2022-10-04] MEDS ORDERED: MAG SULF 1GM/100ML (MAG RUN) 1 GM in IV 1 EA IV ONE (16:30)
[2022-10-04 18:09] LABS: INR 2.88; PROTHROMBIN TIME 30.6 SECONDS (12.5-14.5)
[2022-10-04 18:10] LABS: PARTIAL THROMBOPLASTIN TIME 39.9 SECONDS (24.8-34.2)
[2022-10-04 18:12] LABS: D-DIMER QUANT 2652.58 ng/ml (<500)
[2022-10-04 18:17] LABS: PLATELET COUNT, AUTOMATED 12 10^3/uL (150-450)
[2022-10-04] MEDS: FILGRASTIM 300MCG 0.5ML SYRINGE **SC ADMINISTRATION ONLY SC SCH (20:57)
[2022-10-05] VITALS (96 sets, daily range): BP systolic 80–141; BP diastolic 50–90
[2022-10-05] MEDS: INSULIN REGULAR IN 0.9 % NACL 100 UNIT in IV 1 EA IV SCH ×2 (00:03)
[2022-10-05] MEDS: NOREPINEPHRINE 4MG IN D5 250ML 4 MG in IV 1 EA IV SCH ×10 (00:03→18:29)
[2022-10-05] MEDS: PANTOPRAZOLE 40MG VIAL IV SCH ×2 (00:04→13:08)
[2022-10-05] MEDS ORDERED: DEXTROSE 50% 50ML SYRINGE As Ordered ONE (00:33)
[2022-10-05] MEDS ORDERED: GLUCOSE 4GM CHEW TABLET PO PRN (00:40)
[2022-10-05] MEDS ORDERED: GLUCAGON INJ 1MG VIAL SC PRN (00:40)
[2022-10-05] MEDS: DEXTROSE 50% 50ML SYRINGE IV PRN (00:42)
[2022-10-05] MEDS: INSULIN IV RATE CHANGE DOCUMENTATION ML/HR XX SCH ×5 (01:03→12:17)
[2022-10-05] MEDS: OCTREOTIDE ACETATE 100MCG/ML VIAL **IV ADMINISTRATION ONLY IV SCH ×3 (01:35→18:30)
[2022-10-05] MEDS: MEROPENEM INJ 1 GM in IV 1 EA IV SCH ×6 (01:35→19:18)
[2022-10-05] MEDS: HYDROCORTISONE 100MG/2ML VIAL IV SCH ×4 (04:09→21:55)
[2022-10-05 04:31] LABS: HEMATOCRIT 24.4 % (36.0-47.0); HEMOGLOBIN 8.6 g/dl (12.0-15.5); LYMPH # 0.3 10^3/uL (1.5-5.0); LYMPH % 86.2 % (24.0-44.0); MEAN CORPUSCULAR HGB CONC 35.2 g/dl (32.0-36.5); MEAN CORPUSCULAR VOLUME 90.7 fl (80.0-96.0); MONO % 3.4 % (2.0-8.0); RED BLOOD COUNT 2.69 10^6/uL (4.00-5.40)
[2022-10-05 04:53] LABS: WHITE BLOOD COUNT 0.3 10^3/uL (4.0-10.0)
[2022-10-05 04:54] LABS: PLATELET COUNT, AUTOMATED 13 10^3/uL (150-450)
[2022-10-05 05:03] LABS: MAGNESIUM LEVEL 1.5 MG/DL (1.8-2.4)
[2022-10-05 05:15] LABS: INR 2.84; PROTHROMBIN TIME 30.3 SECONDS (12.5-14.5)
[2022-10-05 05:18] LABS: ALBUMIN 1.2 G/DL (3.2-5.2); ALKALINE PHOSPHATASE 74 U/L (46-116); ALT/SGPT 371 U/L (7.0-40); AST/SGOT 670 U/L (<34); BILIRUBIN,TOTAL 1.4 MG/DL (0.3-1.2); BLOOD UREA NITROGEN 26 MG/DL (9-23); CALCIUM LEVEL 6.3 MG/DL (8.3-10.6); CARBON DIOXIDE LEVEL 17 MMOL/L (20-31); CHLORIDE LEVEL 100 MMOL/L (98-107); CREATININE FOR GFR 0.77 MG/DL (0.55-1.30); GLOMERULAR FILTRATION RATE > 60.0 (>45); GLUCOSE, FASTING 99 MG/DL (74-106); POTASSIUM SERUM 3.5 MMOL/L (3.5-5.1); SODIUM LEVEL 129 MMOL/L (136-145); TOTAL PROTEIN 3.4 G/DL (5.7-8.2)
[2022-10-05 06:21] LABS: ABG BASE EXCESS -6.9 (-2.0-2.0); ABG HCO3 15.3 MEQ/L (22.0-26.0); ABG O2 SATURATION 98.8 % (95.0-99.0); ABG PARTIAL PRESSURE CO2 21.5 mmHg (35.0-45.0); ABG PARTIAL PRESSURE O2 134.9 mmHg (75.0-100.0); ABG STANDARD HCO3 18.8 MEQ/L (22.0-26.0); ABG TOTAL CO2 15.9 MEQ/L (23.0-31.0); ABG pH (ARTERIAL) 7.469 UNITS (7.350-7.450)
[2022-10-05] MEDS: IPRATROPIUM 0.5MG/ALBUTEROL 2.5MG INH SOL UD 3ML (DUONEB) NEB SCH ×4 (08:02→20:29)
[2022-10-05] MEDS: CHLORHEXIDINE GLUCONATE 0.12 % 15ML UDC (PERIDEX ORAL RINSE) MT SCH ×2 (08:25→20:17)
[2022-10-05] MEDS: FLUCONAZOLE 100 MG in IV 1 EA IV SCH (08:25)
[2022-10-05] MEDS ORDERED: MAG SULF 1GM/100ML (MAG RUN) 1 GM in IV 1 EA IV ONE ×2 (09:05→20:00)
[2022-10-05] MEDS ORDERED: KCL 10MEQ/100ML SWI (KRUN) 10 MEQ in IV 1 EA IV ONE ×2 (09:05→21:00)
[2022-10-05] MEDS: VASOPRESSIN INJ 20 UNITS in NS 499 ML IV SCH ×2 (09:47→17:40)
[2022-10-05 12:31] LABS: FOLATE 7.8 NG/ML (>5.4)
[2022-10-05] MEDS ORDERED: MULTIVITAMIN -ADULT INJECTION 10 ML, THIAMINE INJection 100 MG, FOLIC ACID 1 MG in NS 1... IV ONE (14:00)
[2022-10-05 17:33] LABS: BLOOD UREA NITROGEN 30 MG/DL (9-23); CALCIUM LEVEL 6.5 MG/DL (8.3-10.6); CARBON DIOXIDE LEVEL 17 MMOL/L (20-31); CHLORIDE LEVEL 100 MMOL/L (98-107); CREATININE FOR GFR 0.74 MG/DL (0.55-1.30); GLOMERULAR FILTRATION RATE > 60.0 (>45); GLUCOSE, FASTING 89 MG/DL (74-106); MAGNESIUM LEVEL 1.7 MG/DL (1.8-2.4); POTASSIUM SERUM 3.3 MMOL/L (3.5-5.1); SODIUM LEVEL 128 MMOL/L (136-145)
[2022-10-05] MEDS: CYANOCOBALAMIN 500 MCG TAB NG SCH (18:28)
[2022-10-05] MEDS ORDERED: CALCIUM GLUCONATE 1,000 MG in D5W MINI-BAG PLUS 100 ML IV ONE (19:00)
[2022-10-05] MEDS: FILGRASTIM 300MCG 0.5ML SYRINGE **SC ADMINISTRATION ONLY SC SCH (21:18)
[2022-10-06] VITALS (82 sets, daily range): BP systolic 88–152; BP diastolic 52–100
[2022-10-06] MEDS: PANTOPRAZOLE 40MG VIAL IV SCH ×2 (00:54→12:17)
[2022-10-06] MEDS: VASOPRESSIN INJ 20 UNITS in NS 499 ML IV SCH ×2 (00:54→09:48)
[2022-10-06] MEDS: MEROPENEM INJ 1 GM in IV 1 EA IV SCH ×6 (01:40→18:44)
[2022-10-06] MEDS: OCTREOTIDE ACETATE 100MCG/ML VIAL **IV ADMINISTRATION ONLY IV SCH ×3 (01:41→17:23)
[2022-10-06] MEDS: INSULIN IV RATE CHANGE DOCUMENTATION ML/HR XX SCH ×9 (02:02→18:00)
[2022-10-06] MEDS: HYDROCORTISONE 100MG/2ML VIAL IV SCH ×4 (03:43→22:07)
[2022-10-06] MEDS: NOREPINEPHRINE 4MG IN D5 250ML 4 MG in IV 1 EA IV SCH ×2 (03:44)
[2022-10-06 04:24] LABS: HEMATOCRIT 24.1 % (36.0-47.0); HEMOGLOBIN 8.3 g/dl (12.0-15.5); MEAN CORPUSCULAR HEMOGLOBIN 31.1 pg (27.0-33.0); MEAN CORPUSCULAR HGB CONC 34.4 g/dl (32.0-36.5); MEAN CORPUSCULAR VOLUME 90.3 fl (80.0-96.0); RED BLOOD COUNT 2.67 10^6/uL (4.00-5.40); WHITE BLOOD COUNT 0.4 10^3/uL (4.0-10.0)
[2022-10-06 04:25] LABS: PLATELET COUNT, AUTOMATED 3 10^3/uL (150-450)
[2022-10-06 05:05] LABS: ALBUMIN 1.4 G/DL (3.2-5.2); ALKALINE PHOSPHATASE 85 U/L (46-116); ALT/SGPT 896 U/L (7.0-40); AST/SGOT 1151 U/L (<34); BLOOD UREA NITROGEN 35 MG/DL (9-23); CALCIUM LEVEL 6.5 MG/DL (8.3-10.6); CARBON DIOXIDE LEVEL 16 MMOL/L (20-31); CHLORIDE LEVEL 102 MMOL/L (98-107); CREATININE FOR GFR 0.67 MG/DL (0.55-1.30); GLOMERULAR FILTRATION RATE > 60.0 (>45); GLUCOSE, FASTING 138 MG/DL (74-106); MAGNESIUM LEVEL 1.8 MG/DL (1.8-2.4); POTASSIUM SERUM 3.3 MMOL/L (3.5-5.1); SODIUM LEVEL 131 MMOL/L (136-145); TOTAL PROTEIN 3.4 G/DL (5.7-8.2)
[2022-10-06] MEDS ORDERED: KCL 20MEQ IN 100ML SWI (KRUN) 20 MEQ in IV 1 EA IV ONE ×2 (06:30)
[2022-10-06] MEDS: IPRATROPIUM 0.5MG/ALBUTEROL 2.5MG INH SOL UD 3ML (DUONEB) NEB SCH ×4 (07:21→19:37)
[2022-10-06] MEDS ORDERED: NS 1,000 ML IV SCH (08:40)
[2022-10-06] MEDS: FLUCONAZOLE 100 MG in IV 1 EA IV SCH (09:35)
[2022-10-06] MEDS: CHLORHEXIDINE GLUCONATE 0.12 % 15ML UDC (PERIDEX ORAL RINSE) MT SCH ×2 (09:50→21:00)
[2022-10-06 10:11] LABS: INR 1.77; PROTHROMBIN TIME 20.9 SECONDS (12.5-14.5)
[2022-10-06 14:53] LABS: HEMOGLOBIN 8.1 g/dl (12.0-15.5); MEAN CORPUSCULAR HEMOGLOBIN 31.5 pg (27.0-33.0); MEAN CORPUSCULAR HGB CONC 35.2 g/dl (32.0-36.5); MEAN CORPUSCULAR VOLUME 89.5 fl (80.0-96.0); RED BLOOD COUNT 2.57 10^6/uL (4.00-5.40)
[2022-10-06 14:55] LABS: PLATELET COUNT, AUTOMATED 6 10^3/uL (150-450); WHITE BLOOD COUNT 0.3 10^3/uL (4.0-10.0)
[2022-10-06] MEDS: CYANOCOBALAMIN 500 MCG TAB NG SCH (17:23)
[2022-10-06] MEDS: FILGRASTIM 300MCG 0.5ML SYRINGE **SC ADMINISTRATION ONLY SC SCH (21:00)
[2022-10-07] VITALS (31 sets, daily range): BP systolic 94–138; BP diastolic 54–81
[2022-10-07] MEDS: MEROPENEM INJ 1 GM in IV 1 EA IV SCH ×6 (01:06→18:36)
[2022-10-07] MEDS: PANTOPRAZOLE 40MG VIAL IV SCH ×2 (01:06→13:35)
[2022-10-07] MEDS: OCTREOTIDE ACETATE 100MCG/ML VIAL **IV ADMINISTRATION ONLY IV SCH ×3 (01:07→17:15)
[2022-10-07] MEDS: HYDROCORTISONE 100MG/2ML VIAL IV SCH ×4 (03:34→21:56)
[2022-10-07] MEDS: INSULIN IV RATE CHANGE DOCUMENTATION ML/HR XX SCH (03:57)
[2022-10-07 04:08] LABS: HEMATOCRIT 21.7 % (36.0-47.0); HEMOGLOBIN 7.7 g/dl (12.0-15.5); LYMPH # 0.2 10^3/uL (1.5-5.0); MEAN CORPUSCULAR HEMOGLOBIN 31.4 pg (27.0-33.0); MEAN CORPUSCULAR HGB CONC 35.5 g/dl (32.0-36.5); MEAN CORPUSCULAR VOLUME 88.6 fl (80.0-96.0); RED BLOOD COUNT 2.45 10^6/uL (4.00-5.40)
[2022-10-07 04:09] LABS: WHITE BLOOD COUNT 0.3 10^3/uL (4.0-10.0)
[2022-10-07 04:10] LABS: PLATELET COUNT, AUTOMATED 16 10^3/uL (150-450)
[2022-10-07 04:40] LABS: ALBUMIN 1.9 G/DL (3.2-5.2); ALKALINE PHOSPHATASE 83 U/L (46-116); ALT/SGPT 805 U/L (7.0-40); AST/SGOT 576 U/L (<34); BLOOD UREA NITROGEN 29 MG/DL (9-23); CALCIUM LEVEL 6.7 MG/DL (8.3-10.6); CARBON DIOXIDE LEVEL 21 MMOL/L (20-31); CHLORIDE LEVEL 105 MMOL/L (98-107); CREATININE FOR GFR 0.55 MG/DL (0.55-1.30); GLOMERULAR FILTRATION RATE > 60.0 (>45); GLUCOSE, FASTING 85 MG/DL (74-106); SODIUM LEVEL 135 MMOL/L (136-145); TOTAL PROTEIN 4.3 G/DL (5.7-8.2)
[2022-10-07] MEDS: KCL 20MEQ IN 100ML SWI (KRUN) 20 MEQ in IV 1 EA IV SCH ×4 (05:22→06:24)
[2022-10-07] MEDS: IPRATROPIUM 0.5MG/ALBUTEROL 2.5MG INH SOL UD 3ML (DUONEB) NEB SCH ×4 (08:02→19:47)
[2022-10-07] MEDS: FLUCONAZOLE 100 MG in IV 1 EA IV SCH (09:06)
[2022-10-07] MEDS: CHLORHEXIDINE GLUCONATE 0.12 % 15ML UDC (PERIDEX ORAL RINSE) MT SCH ×2 (09:07→21:55)
[2022-10-07 09:30] LABS: ABG BASE EXCESS -0.8 (-2.0-2.0); ABG HCO3 19.8 MEQ/L (22.0-26.0); ABG O2 SATURATION 95.5 % (95.0-99.0); ABG PARTIAL PRESSURE CO2 21.2 mmHg (35.0-45.0); ABG PARTIAL PRESSURE O2 78.6 mmHg (75.0-100.0); ABG STANDARD HCO3 23.8 MEQ/L (22.0-26.0); ABG TOTAL CO2 20.5 MEQ/L (23.0-31.0); ABG pH (ARTERIAL) 7.589 UNITS (7.350-7.450)
[2022-10-07] MEDS: INSULIN LISPRO (NovoLOG) PER UNIT SC SCH ×2 (12:54→17:15)
[2022-10-07] MEDS ORDERED: FUROSEMIDE 20MG/2ML VIAL IV ONE (18:30)
[2022-10-07] MEDS ORDERED: LEVEMIR (INSULIN DETEMIR) 1 UNITS/0.01ML SC SCH (21:00)
[2022-10-07] MEDS: FILGRASTIM 300MCG 0.5ML SYRINGE **SC ADMINISTRATION ONLY SC SCH (21:56)
[2022-10-08] VITALS (26 sets, daily range): BP systolic 100–137; BP diastolic 56–96
[2022-10-08] MEDS: PANTOPRAZOLE 40MG VIAL IV SCH ×2 (00:13→13:08)
[2022-10-08] MEDS: INSULIN LISPRO (NovoLOG) PER UNIT SC SCH ×4 (00:14→17:39)
[2022-10-08] MEDS: MEROPENEM INJ 1 GM in IV 1 EA IV SCH ×6 (01:39→18:10)
[2022-10-08] MEDS: OCTREOTIDE ACETATE 100MCG/ML VIAL **IV ADMINISTRATION ONLY IV SCH ×3 (01:39→17:05)
[2022-10-08] MEDS: HYDROCORTISONE 100MG/2ML VIAL IV SCH (04:27)
[2022-10-08 05:48] LABS: ABG BASE EXCESS -1.6 (-2.0-2.0); ABG HCO3 19.6 MEQ/L (22.0-26.0); ABG PARTIAL PRESSURE CO2 23.9 mmHg (35.0-45.0); ABG PARTIAL PRESSURE O2 88.9 mmHg (75.0-100.0); ABG STANDARD HCO3 23.2 MEQ/L (22.0-26.0); ABG TOTAL CO2 20.3 MEQ/L (23.0-31.0); ABG pH (ARTERIAL) 7.532 UNITS (7.350-7.450)
[2022-10-08 05:53] LABS: ALBUMIN 1.7 G/DL (3.2-5.2); ALKALINE PHOSPHATASE 84 U/L (46-116); ALT/SGPT 522 U/L (7.0-40); AST/SGOT 126 U/L (<34); BILIRUBIN,TOTAL 1.9 MG/DL (0.3-1.2); BLOOD UREA NITROGEN 35 MG/DL (9-23); CALCIUM LEVEL 5.6 MG/DL (8.3-10.6); CARBON DIOXIDE LEVEL 22 MMOL/L (20-31); CHLORIDE LEVEL 107 MMOL/L (98-107); CREATININE FOR GFR 0.49 MG/DL (0.55-1.30); GLOMERULAR FILTRATION RATE > 60.0 (>45); GLUCOSE, FASTING 250 MG/DL (74-106); MAGNESIUM LEVEL 1.8 MG/DL (1.8-2.4); SODIUM LEVEL 139 MMOL/L (136-145); TOTAL PROTEIN 3.8 G/DL (5.7-8.2)
[2022-10-08] MEDS ORDERED: KCL 20MEQ IN 100ML SWI (KRUN) 20 MEQ in IV 1 EA IV ONE ×4 (06:30→10:00)
[2022-10-08] MEDS: KCL 20MEQ IN 100ML SWI (KRUN) 20 MEQ in IV 1 EA IV SCH ×8 (06:32→17:05)
[2022-10-08 07:24] LABS: LYMPH # 0.3 10^3/uL (1.5-5.0); LYMPH % 91.9 % (24.0-44.0); MEAN CORPUSCULAR HEMOGLOBIN 30.6 pg (27.0-33.0); MEAN CORPUSCULAR HGB CONC 34.4 g/dl (32.0-36.5); MEAN CORPUSCULAR VOLUME 88.9 fl (80.0-96.0); MONO % 2.7 % (2.0-8.0); NEUTROPHILS % 5.4 % (36.0-66.0)
[2022-10-08 07:26] LABS: PLATELET COUNT, AUTOMATED 4 10^3/uL (150-450); WHITE BLOOD COUNT 0.4 10^3/uL (4.0-10.0)
[2022-10-08] MEDS ORDERED: CALCIUM GLUCONATE 1,000 MG in D5W MINI-BAG PLUS 100 ML IV ONE (08:00)
[2022-10-08] MEDS: IPRATROPIUM 0.5MG/ALBUTEROL 2.5MG INH SOL UD 3ML (DUONEB) NEB SCH ×4 (08:06→19:59)
[2022-10-08] MEDS ORDERED: FUROSEMIDE 20MG/2ML VIAL IV ONE (08:50)
[2022-10-08] MEDS: CHLORHEXIDINE GLUCONATE 0.12 % 15ML UDC (PERIDEX ORAL RINSE) MT SCH ×2 (08:59→20:50)
[2022-10-08] MEDS: FLUCONAZOLE 100 MG in IV 1 EA IV SCH (09:27)
[2022-10-08] MEDS: methylPREDNISolone 40MG 1ML VIAL IV SCH ×2 (09:27→20:51)
[2022-10-08] MEDS ORDERED: METOCLOPRAMIDE INJ 10MG/2ML VIAL IV ONE (10:00)
[2022-10-08 14:35] LABS: HEMATOCRIT 34.6 % (36.0-47.0); HEMOGLOBIN 11.6 g/dl (12.0-15.5); MEAN CORPUSCULAR HGB CONC 33.5 g/dl (32.0-36.5); MEAN CORPUSCULAR VOLUME 89.4 fl (80.0-96.0); RED BLOOD COUNT 3.87 10^6/uL (4.00-5.40)
[2022-10-08 14:46] LABS: PLATELET COUNT, AUTOMATED 9 10^3/uL (150-450); WHITE BLOOD COUNT 0.3 10^3/uL (4.0-10.0)
[2022-10-08 15:04] LABS: BLOOD UREA NITROGEN 32 MG/DL (9-23); CALCIUM LEVEL 5.8 MG/DL (8.3-10.6); CARBON DIOXIDE LEVEL 23 MMOL/L (20-31); CHLORIDE LEVEL 107 MMOL/L (98-107); CREATININE FOR GFR 0.45 MG/DL (0.55-1.30); GLOMERULAR FILTRATION RATE > 60.0 (>45); GLUCOSE, FASTING 331 MG/DL (74-106); POTASSIUM SERUM 3.3 MMOL/L (3.5-5.1); SODIUM LEVEL 141 MMOL/L (136-145)
[2022-10-08 15:32] LABS: HEMOGLOBIN A1c 6.2 % (4.0-6.0)
[2022-10-08] MEDS: LEVEMIR (INSULIN DETEMIR) 1 UNITS/0.01ML SC SCH (20:50)
[2022-10-08] MEDS: FILGRASTIM 300MCG 0.5ML SYRINGE **SC ADMINISTRATION ONLY SC SCH (21:59)
[2022-10-09] VITALS (24 sets, daily range): BP systolic 117–163; BP diastolic 67–99
[2022-10-09] MEDS: INSULIN LISPRO (NovoLOG) PER UNIT SC SCH ×4 (00:13→18:24)
[2022-10-09] MEDS: PANTOPRAZOLE 40MG VIAL IV SCH ×2 (00:13→13:22)
[2022-10-09] MEDS: OCTREOTIDE ACETATE 100MCG/ML VIAL **IV ADMINISTRATION ONLY IV SCH ×3 (01:25→18:23)
[2022-10-09] MEDS: MEROPENEM INJ 1 GM in IV 1 EA IV SCH ×6 (01:25→19:01)
[2022-10-09 05:53] LABS: HEMATOCRIT 33.9 % (36.0-47.0); HEMOGLOBIN 11.6 g/dl (12.0-15.5); LYMPH # 0.4 10^3/uL (1.5-5.0); MEAN CORPUSCULAR HEMOGLOBIN 30.9 pg (27.0-33.0); MEAN CORPUSCULAR HGB CONC 34.2 g/dl (32.0-36.5); MEAN CORPUSCULAR VOLUME 90.2 fl (80.0-96.0); MONO # 0.1 10^3/uL (0.0-0.8); RED BLOOD COUNT 3.76 10^6/uL (4.00-5.40)
[2022-10-09 05:58] LABS: PLATELET COUNT, AUTOMATED 9 10^3/uL (150-450); WHITE BLOOD COUNT 0.5 10^3/uL (4.0-10.0)
[2022-10-09 06:08] LABS: ABG BASE EXCESS 2.3 (-2.0-2.0); ABG HCO3 23.3 MEQ/L (22.0-26.0); ABG O2 SATURATION 96.6 % (95.0-99.0); ABG PARTIAL PRESSURE CO2 25.9 mmHg (35.0-45.0); ABG STANDARD HCO3 26.5 MEQ/L (22.0-26.0); ABG pH (ARTERIAL) 7.571 UNITS (7.350-7.450)
[2022-10-09 06:22] LABS: ALBUMIN 1.8 G/DL (3.2-5.2); ALKALINE PHOSPHATASE 84 U/L (46-116); ALT/SGPT 305 U/L (7.0-40); AST/SGOT 41 U/L (<34); BILIRUBIN,TOTAL 1.4 MG/DL (0.3-1.2); BLOOD UREA NITROGEN 38 MG/DL (9-23); CARBON DIOXIDE LEVEL 25 MMOL/L (20-31); CHLORIDE LEVEL 108 MMOL/L (98-107); CREATININE FOR GFR 0.41 MG/DL (0.55-1.30); GLOMERULAR FILTRATION RATE > 60.0 (>45); GLUCOSE, FASTING 312 MG/DL (74-106); MAGNESIUM LEVEL 1.6 MG/DL (1.8-2.4); POTASSIUM SERUM 3.6 MMOL/L (3.5-5.1); SODIUM LEVEL 140 MMOL/L (136-145); TOTAL PROTEIN 4.1 G/DL (5.7-8.2)
[2022-10-09] MEDS: IPRATROPIUM 0.5MG/ALBUTEROL 2.5MG INH SOL UD 3ML (DUONEB) NEB SCH ×4 (07:39→19:24)
[2022-10-09] MEDS: CHLORHEXIDINE GLUCONATE 0.12 % 15ML UDC (PERIDEX ORAL RINSE) MT SCH ×2 (08:57→21:01)
[2022-10-09] MEDS: FLUCONAZOLE 100 MG in IV 1 EA IV SCH (08:57)
[2022-10-09] MEDS: methylPREDNISolone 40MG 1ML VIAL IV SCH ×2 (08:57→21:01)
[2022-10-09] MEDS ORDERED: CALCIUM GLUCONATE 1,000 MG in D5W MINI-BAG PLUS 100 ML IV ONE (12:00)
[2022-10-09] MEDS: FUROSEMIDE 40MG/4ML VIAL IV SCH (12:04)
[2022-10-09] MEDS ORDERED: MAG SULF 1GM/100ML (MAG RUN) 1 GM in IV 1 EA IV ONE (13:00)
[2022-10-09 16:25] LABS: PHOSPHORUS LEVEL 1.6 MG/DL (2.4-5.1)
[2022-10-09] MEDS ORDERED: NEUTRA-PHOS 1.5 GM PACKET FT ONE (19:15)
[2022-10-09] MEDS: METOPROLOL 5 MG/5 ML VIAL IV SCH ×3 (20:55→21:13)
[2022-10-09] MEDS: LEVEMIR (INSULIN DETEMIR) 1 UNITS/0.01ML SC SCH (21:01)
[2022-10-09] MEDS: FILGRASTIM 300MCG 0.5ML SYRINGE **SC ADMINISTRATION ONLY SC SCH (21:48)
[2022-10-10] VITALS (25 sets, daily range): BP systolic 118–154; BP diastolic 81–106
[2022-10-10] MEDS: MEROPENEM INJ 1 GM in IV 1 EA IV SCH ×6 (00:09→18:44)
[2022-10-10] MEDS: INSULIN LISPRO (NovoLOG) PER UNIT SC SCH ×4 (00:09→18:02)
[2022-10-10] MEDS: PANTOPRAZOLE 40MG VIAL IV SCH ×2 (00:26→12:16)
[2022-10-10] MEDS: OCTREOTIDE ACETATE 100MCG/ML VIAL **IV ADMINISTRATION ONLY IV SCH (01:23)
[2022-10-10 05:10] LABS: HEMATOCRIT 36.7 % (36.0-47.0); HEMOGLOBIN 12.4 g/dl (12.0-15.5); MEAN CORPUSCULAR HEMOGLOBIN 31.2 pg (27.0-33.0); MEAN CORPUSCULAR HGB CONC 33.8 g/dl (32.0-36.5); MEAN CORPUSCULAR VOLUME 92.2 fl (80.0-96.0); RED BLOOD COUNT 3.98 10^6/uL (4.00-5.40)
[2022-10-10 05:28] LABS: PLATELET COUNT, AUTOMATED 30 10^3/uL (150-450)
[2022-10-10 05:36] LABS: ANISOCYTOSIS 4+; ATYPICAL LYMPH 4 % (0-5); LYMPHOCYTES 65 % (16-44); METAMYELOCYTES 3 % (0-0); MONOCYTES 9 % (0-5); MYELOCYTES 6 % (0-0); NEUTROPHILS 13 % (28-66); PLATELET ESTIMATE DECREASED (NORMAL)
[2022-10-10 05:42] LABS: ALBUMIN 2.1 G/DL (3.2-5.2); ALKALINE PHOSPHATASE 102 U/L (46-116); ALT/SGPT 235 U/L (7.0-40); AST/SGOT 52 U/L (<34); BILIRUBIN,TOTAL 1.8 MG/DL (0.3-1.2); BLOOD UREA NITROGEN 42 MG/DL (9-23); CALCIUM LEVEL 6.9 MG/DL (8.3-10.6); CARBON DIOXIDE LEVEL 30 MMOL/L (20-31); CHLORIDE LEVEL 107 MMOL/L (98-107); CREATININE FOR GFR 0.36 MG/DL (0.55-1.30); GLOMERULAR FILTRATION RATE > 60.0 (>45); GLUCOSE, FASTING 248 MG/DL (74-106); MAGNESIUM LEVEL 1.6 MG/DL (1.8-2.4); POTASSIUM SERUM 3.5 MMOL/L (3.5-5.1); SODIUM LEVEL 145 MMOL/L (136-145); TOTAL PROTEIN 4.7 G/DL (5.7-8.2)
[2022-10-10 06:03] LABS: ABG HCO3 25.1 MEQ/L (22.0-26.0); ABG O2 SATURATION 95.8 % (95.0-99.0); ABG PARTIAL PRESSURE CO2 27.8 mmHg (35.0-45.0); ABG PARTIAL PRESSURE O2 79.1 mmHg (75.0-100.0); ABG TOTAL CO2 25.9 MEQ/L (23.0-31.0); ABG pH (ARTERIAL) 7.573 UNITS (7.350-7.450)
[2022-10-10] MEDS: IPRATROPIUM 0.5MG/ALBUTEROL 2.5MG INH SOL UD 3ML (DUONEB) NEB SCH ×4 (07:50→20:16)
[2022-10-10] MEDS ORDERED: POTASSIUM CHL PWD 20MEQ PACKET PO ONE (08:00)
[2022-10-10] MEDS ORDERED: MAG SULF 1GM/100ML (MAG RUN) 1 GM in IV 1 EA IV ONE (08:00)
[2022-10-10] MEDS: predniSONE 5 MG TAB PO SCH (08:16)
[2022-10-10] MEDS: METOPROLOL TART 12.5 MG PER 1/2 TAB PO SCH ×3 (08:17→17:49)
[2022-10-10] MEDS: CHLORHEXIDINE GLUCONATE 0.12 % 15ML UDC (PERIDEX ORAL RINSE) MT SCH ×2 (08:17→20:48)
[2022-10-10] MEDS: FUROSEMIDE 40MG/4ML VIAL IV SCH (08:18)
[2022-10-10] MEDS: FLUCONAZOLE 100 MG in IV 1 EA IV SCH (08:19)
[2022-10-10 08:53] LABS: PHOSPHORUS LEVEL 2.6 MG/DL (2.4-5.1)
[2022-10-10] MEDS: FERROUS SULFATE 300MG/5ML UDC LIQUID GT SCH (09:00)
[2022-10-10] MEDS ORDERED: PROHANCE 279.3MG/ML 15ML VIAL As Ordered ONE (09:18)
[2022-10-10] MEDS: LEVEMIR (INSULIN DETEMIR) 1 UNITS/0.01ML SC SCH (20:48)
[2022-10-10] MEDS: FILGRASTIM 300MCG 0.5ML SYRINGE **SC ADMINISTRATION ONLY SC SCH (21:09)
[2022-10-11] VITALS (24 sets, daily range): BP systolic 98–142; BP diastolic 67–98
[2022-10-11] MEDS: INSULIN LISPRO (NovoLOG) PER UNIT SC SCH ×4 (00:04→18:29)
[2022-10-11] MEDS: PANTOPRAZOLE 40MG VIAL IV SCH ×2 (00:05→12:35)
[2022-10-11] MEDS: METOPROLOL TART 12.5 MG PER 1/2 TAB PO SCH ×5 (00:05→20:45)
[2022-10-11] MEDS: MEROPENEM INJ 1 GM in IV 1 EA IV SCH ×6 (01:55→20:45)
[2022-10-11 05:11] LABS: HEMATOCRIT 38.5 % (36.0-47.0); HEMOGLOBIN 12.6 g/dl (12.0-15.5); MEAN CORPUSCULAR HEMOGLOBIN 30.7 pg (27.0-33.0); MEAN CORPUSCULAR HGB CONC 32.7 g/dl (32.0-36.5); MEAN CORPUSCULAR VOLUME 93.9 fl (80.0-96.0); WHITE BLOOD COUNT 1.3 10^3/uL (4.0-10.0)
[2022-10-11 05:41] LABS: ALBUMIN 1.9 G/DL (3.2-5.2); ALKALINE PHOSPHATASE 188 U/L (46-116); ALT/SGPT 188 U/L (7.0-40); AST/SGOT 57 U/L (<34); BILIRUBIN,TOTAL 1.3 MG/DL (0.3-1.2); BLOOD UREA NITROGEN 44 MG/DL (9-23); CALCIUM LEVEL 8.2 MG/DL (8.3-10.6); CARBON DIOXIDE LEVEL 33 MMOL/L (20-31); CHLORIDE LEVEL 106 MMOL/L (98-107); CREATININE FOR GFR 0.37 MG/DL (0.55-1.30); GLOMERULAR FILTRATION RATE > 60.0 (>45); GLUCOSE, FASTING 184 MG/DL (74-106); MAGNESIUM LEVEL 1.5 MG/DL (1.8-2.4); POTASSIUM SERUM 3.5 MMOL/L (3.5-5.1); SODIUM LEVEL 142 MMOL/L (136-145); TOTAL PROTEIN 4.4 G/DL (5.7-8.2)
[2022-10-11 05:46] LABS: PLATELET COUNT, AUTOMATED 11 10^3/uL (150-450)
[2022-10-11 05:58] LABS: ATYPICAL LYMPH 13 % (0-5); LYMPHOCYTES 48 % (16-44); MONOCYTES 16 % (0-5); NEUTROPHILS 22 % (28-66); PLATELET ESTIMATE MARKED DECREASE (NORMAL); POLYCHROMASIA 1+
[2022-10-11 06:00] LABS: ANISOCYTOSIS 4+; OVALOCYTES 1+
[2022-10-11] MEDS ORDERED: MAG SULF 1GM/100ML (MAG RUN) 1 GM in IV 1 EA IV ONE (06:00)
[2022-10-11 06:18] LABS: ABG BASE EXCESS 8.9 (-2.0-2.0); ABG HCO3 31.1 MEQ/L (22.0-26.0); ABG O2 SATURATION 96.5 % (95.0-99.0); ABG PARTIAL PRESSURE CO2 34.6 mmHg (35.0-45.0); ABG PARTIAL PRESSURE O2 80.7 mmHg (75.0-100.0); ABG STANDARD HCO3 32.7 MEQ/L (22.0-26.0); ABG TOTAL CO2 32.2 MEQ/L (23.0-31.0); ABG pH (ARTERIAL) 7.572 UNITS (7.350-7.450)
[2022-10-11] MEDS: IPRATROPIUM 0.5MG/ALBUTEROL 2.5MG INH SOL UD 3ML (DUONEB) NEB SCH ×4 (07:24→19:54)
[2022-10-11] MEDS: CHLORHEXIDINE GLUCONATE 0.12 % 15ML UDC (PERIDEX ORAL RINSE) MT SCH ×2 (08:53→20:46)
[2022-10-11] MEDS: FERROUS SULFATE 300MG/5ML UDC LIQUID GT SCH (08:53)
[2022-10-11] MEDS: FUROSEMIDE 40MG/4ML VIAL IV SCH (08:54)
[2022-10-11] MEDS: predniSONE 5 MG TAB PO SCH (08:54)
[2022-10-11] MEDS ORDERED: POTASSIUM CHLORIDE 10% LIQ 20MEQ/15ML UDC PO ONE (11:20)
[2022-10-11 12:44] LABS: ABG BASE EXCESS 11.4 (-2.0-2.0); ABG HCO3 33.2 MEQ/L (22.0-26.0); ABG O2 SATURATION 90.3 % (95.0-99.0); ABG PARTIAL PRESSURE CO2 33.8 mmHg (35.0-45.0); ABG PARTIAL PRESSURE O2 51.6 mmHg (75.0-100.0); ABG TOTAL CO2 34.2 MEQ/L (23.0-31.0)
[2022-10-11] MEDS: LEVEMIR (INSULIN DETEMIR) 1 UNITS/0.01ML SC SCH (20:46)
[2022-10-11] MEDS: FILGRASTIM 300MCG 0.5ML SYRINGE **SC ADMINISTRATION ONLY SC SCH (22:33)
[2022-10-12] VITALS (26 sets, daily range): BP systolic 96–144; BP diastolic 58–92
[2022-10-12] MEDS: METOPROLOL TART 12.5 MG PER 1/2 TAB PO SCH ×4 (00:06→17:03)
[2022-10-12] MEDS: PANTOPRAZOLE 40MG VIAL IV SCH ×2 (00:06→12:20)
[2022-10-12] MEDS: INSULIN LISPRO (NovoLOG) PER UNIT SC SCH ×4 (00:29→18:00)
[2022-10-12] MEDS: MEROPENEM INJ 1 GM in IV 1 EA IV SCH ×6 (02:17→18:03)
[2022-10-12 05:18] LABS: HEMATOCRIT 39.5 % (36.0-47.0); MEAN CORPUSCULAR HEMOGLOBIN 30.2 pg (27.0-33.0); MEAN CORPUSCULAR HGB CONC 32.9 g/dl (32.0-36.5); MEAN CORPUSCULAR VOLUME 91.6 fl (80.0-96.0); RED BLOOD COUNT 4.31 10^6/uL (4.00-5.40); WHITE BLOOD COUNT 2.1 10^3/uL (4.0-10.0)
[2022-10-12 05:52] LABS: ALBUMIN 1.9 G/DL (3.2-5.2); ALKALINE PHOSPHATASE 451 U/L (46-116); ALT/SGPT 203 U/L (7.0-40); AST/SGOT 70 U/L (<34); BILIRUBIN,TOTAL 1.2 MG/DL (0.3-1.2); BLOOD UREA NITROGEN 38 MG/DL (9-23); CALCIUM LEVEL 8.8 MG/DL (8.3-10.6); CARBON DIOXIDE LEVEL 29 MMOL/L (20-31); CHLORIDE LEVEL 105 MMOL/L (98-107); CREATININE FOR GFR 0.37 MG/DL (0.55-1.30); GLOMERULAR FILTRATION RATE > 60.0 (>45); GLUCOSE, FASTING 144 MG/DL (74-106); MAGNESIUM LEVEL 1.3 MG/DL (1.8-2.4); PLATELET COUNT, AUTOMATED 9 10^3/uL (150-450); POTASSIUM SERUM 3.2 MMOL/L (3.5-5.1); SODIUM LEVEL 141 MMOL/L (136-145); TOTAL PROTEIN 4.7 G/DL (5.7-8.2)
[2022-10-12 06:08] LABS: ABG BASE EXCESS 9.6 (-2.0-2.0); ABG HCO3 28.6 MEQ/L (22.0-26.0); ABG O2 SATURATION 94.8 % (95.0-99.0); ABG PARTIAL PRESSURE CO2 24.1 mmHg (35.0-45.0); ABG PARTIAL PRESSURE O2 64.8 mmHg (75.0-100.0); ABG STANDARD HCO3 33.3 MEQ/L (22.0-26.0); ABG TOTAL CO2 29.3 MEQ/L (23.0-31.0)
[2022-10-12 06:12] LABS: ABG pH (ARTERIAL) 7.692 UNITS (7.350-7.450)
[2022-10-12 06:21] LABS: ANISOCYTOSIS 2+; ATYPICAL LYMPH 5 % (0-5); LYMPHOCYTES 39 % (16-44); MONOCYTES 9 % (0-5); MYELOCYTES 2 % (0-0); NEUTROPHILS 45 % (28-66); PLATELET ESTIMATE MARKED DECREASE (NORMAL)
[2022-10-12 06:22] LABS: POLYCHROMASIA 1+
[2022-10-12] MEDS ORDERED: KCL 20MEQ IN 100ML SWI (KRUN) 20 MEQ in IV 1 EA IV ONE ×2 (07:00)
[2022-10-12] MEDS: MAG SULF 1GM/100ML (MAG RUN) 1 GM in IV 1 EA IV SCH ×2 (07:00→09:40)
[2022-10-12] MEDS: IPRATROPIUM 0.5MG/ALBUTEROL 2.5MG INH SOL UD 3ML (DUONEB) NEB SCH ×4 (07:32→19:53)
[2022-10-12] MEDS: FERROUS SULFATE 300MG/5ML UDC LIQUID GT SCH (08:26)
[2022-10-12] MEDS: CHLORHEXIDINE GLUCONATE 0.12 % 15ML UDC (PERIDEX ORAL RINSE) MT SCH ×2 (08:26→21:57)
[2022-10-12] MEDS ORDERED: BISACODYL 10MG SUPP PR PRN (09:05)
[2022-10-12] MEDS ORDERED: POTASSIUM PHOSPHATE INJ 15 MMOL in D5W 250 ML IV ONE (10:00)
[2022-10-12] MEDS: METOCLOPRAMIDE INJ 10MG/2ML VIAL IV SCH ×3 (11:09→21:55)
[2022-10-12] MEDS: FILGRASTIM 300MCG 0.5ML SYRINGE **SC ADMINISTRATION ONLY SC SCH (21:56)
[2022-10-12] MEDS: LEVEMIR (INSULIN DETEMIR) 1 UNITS/0.01ML SC SCH (21:57)
[2022-10-13] VITALS (41 sets, daily range): BP systolic 92–150; BP diastolic 56–94
[2022-10-13] MEDS: PANTOPRAZOLE 40MG VIAL IV SCH ×2 (01:09→12:15)
[2022-10-13] MEDS: MEROPENEM INJ 1 GM in IV 1 EA IV SCH ×4 (01:20→11:45)
[2022-10-13] MEDS: METOCLOPRAMIDE INJ 10MG/2ML VIAL IV SCH ×2 (04:09→11:09)
[2022-10-13 05:07] LABS: CYTOMEGALOVIRUS IgM ANTIBODY <30.0 AU/mL (0.0-29.9)
[2022-10-13 05:11] LABS: HEMATOCRIT 36.7 % (36.0-47.0); HEMOGLOBIN 12.3 g/dl (12.0-15.5); MEAN CORPUSCULAR HEMOGLOBIN 30.7 pg (27.0-33.0); MEAN CORPUSCULAR HGB CONC 33.5 g/dl (32.0-36.5); MEAN CORPUSCULAR VOLUME 91.5 fl (80.0-96.0); RED BLOOD COUNT 4.01 10^6/uL (4.00-5.40); WHITE BLOOD COUNT 2.7 10^3/uL (4.0-10.0)
[2022-10-13 05:17] LABS: PLATELET COUNT, AUTOMATED 62 10^3/uL (150-450)
[2022-10-13 05:33] LABS: ATYPICAL LYMPH 8 % (0-5); LYMPHOCYTES 25 % (16-44); MONOCYTES 13 % (0-5); NEUTROPHILS 51 % (28-66); PLATELET ESTIMATE DECREASED (NORMAL); POIKILOCYTOSIS 1+; POLYCHROMASIA 2+
[2022-10-13 05:34] LABS: ANISOCYTOSIS 2+; SCHISTOCYTES 1+
[2022-10-13 05:38] LABS: ALBUMIN 2.1 G/DL (3.2-5.2); ALKALINE PHOSPHATASE 597 U/L (46-116); ALT/SGPT 185 U/L (7.0-40); AST/SGOT 100 U/L (<34); BILIRUBIN,TOTAL 1.2 MG/DL (0.3-1.2); BLOOD UREA NITROGEN 33 MG/DL (9-23); CALCIUM LEVEL 8.6 MG/DL (8.3-10.6); CARBON DIOXIDE LEVEL 27 MMOL/L (20-31); CHLORIDE LEVEL 105 MMOL/L (98-107); GLOMERULAR FILTRATION RATE > 60.0 (>45); GLUCOSE, FASTING 64 MG/DL (74-106); MAGNESIUM LEVEL 1.4 MG/DL (1.8-2.4); POTASSIUM SERUM 2.9 MMOL/L (3.5-5.1); SODIUM LEVEL 143 MMOL/L (136-145); TOTAL PROTEIN 4.8 G/DL (5.7-8.2)
[2022-10-13] MEDS: DEXTROSE 50% 50ML SYRINGE IV PRN ×2 (05:45→17:17)
[2022-10-13] MEDS: METOPROLOL TART 12.5 MG PER 1/2 TAB PO SCH ×4 (06:00→17:18)
[2022-10-13] MEDS: INSULIN LISPRO (NovoLOG) PER UNIT SC SCH ×5 (06:00→23:18)
[2022-10-13 06:10] LABS: ABG BASE EXCESS 4.2 (-2.0-2.0); ABG HCO3 23.6 MEQ/L (22.0-26.0); ABG O2 SATURATION 98.7 % (95.0-99.0); ABG PARTIAL PRESSURE CO2 21.7 mmHg (35.0-45.0); ABG PARTIAL PRESSURE O2 135.2 mmHg (75.0-100.0); ABG STANDARD HCO3 28.3 MEQ/L (22.0-26.0); ABG TOTAL CO2 24.2 MEQ/L (23.0-31.0)
[2022-10-13 06:11] LABS: ABG pH (ARTERIAL) 7.654 UNITS (7.350-7.450)
[2022-10-13] MEDS ORDERED: NS 500 ML IV ONE (06:20)
[2022-10-13] MEDS ORDERED: LR 500 ML IV ONE (06:25)
[2022-10-13] MEDS: MAG SULF 1GM/100ML (MAG RUN) 1 GM in IV 1 EA IV SCH ×2 (06:31→08:04)
[2022-10-13] MEDS: IPRATROPIUM 0.5MG/ALBUTEROL 2.5MG INH SOL UD 3ML (DUONEB) NEB SCH (07:34)
[2022-10-13] MEDS ORDERED: MAG SULF 1GM/100ML (MAG RUN) 1 GM in IV 1 EA IV SCH (09:00)
[2022-10-13] MEDS ORDERED: POTASSIUM CHL PWD 20MEQ PACKET PO ONE ×2 (09:00→11:00)
[2022-10-13] MEDS ORDERED: MAG SULF 1GM/100ML (MAG RUN) 1 GM in IV 1 EA IV ONE (09:00)
[2022-10-13] MEDS ORDERED: predniSONE 10MG TAB PO SCH (09:00)
[2022-10-13] MEDS ORDERED: POTASSIUM CHLORIDE 10MEQ SR TABLET PO SCH (09:00)
[2022-10-13] MEDS: KCL 20MEQ IN 100ML SWI (KRUN) 20 MEQ in IV 1 EA IV SCH ×6 (09:00→12:15)
[2022-10-13] MEDS: FERROUS SULFATE 300MG/5ML UDC LIQUID GT SCH (09:12)
[2022-10-13] MEDS: CHLORHEXIDINE GLUCONATE 0.12 % 15ML UDC (PERIDEX ORAL RINSE) MT SCH ×2 (09:13→21:27)
[2022-10-13 10:55] LABS: APPEARANCE, CSF CLEAR (CLEAR); COLOR, CSF COLORLESS (COLORLESS); CSF TUBE# CELL CNT TUBE 1
[2022-10-13 11:11] LABS: CSF TUBE# TP TUBE 2; TOTAL PROTEIN,CSF 50.3 MG/DL (15-45)
[2022-10-13 11:14] LABS: CSF TUBE# GLU TUBE 2
[2022-10-13] MEDS: ALBUTEROL SULFATE 2.5MG/0.5ML INH NEB SOLN NEB SCH ×3 (11:14→19:09)
[2022-10-13] MEDS ORDERED: KCL 20MEQ IN 100ML SWI (KRUN) 20 MEQ in IV 1 EA IV ONE ×2 (12:00)
[2022-10-13] MEDS ORDERED: LEVEMIR (INSULIN DETEMIR) 1 UNITS/0.01ML SC SCH ×2 (21:00)
[2022-10-13] MEDS: FILGRASTIM 300MCG 0.5ML SYRINGE **SC ADMINISTRATION ONLY SC SCH (21:27)
[2022-10-14] VITALS (27 sets, daily range): BP systolic 91–162; BP diastolic 67–104
[2022-10-14] MEDS ORDERED: DEXTROSE 50% 50ML SYRINGE IV STA (00:10)
[2022-10-14] MEDS: PANTOPRAZOLE 40MG VIAL IV SCH ×2 (00:39→13:39)
[2022-10-14] MEDS: METOPROLOL TART 12.5 MG PER 1/2 TAB PO SCH ×4 (00:39→17:00)
[2022-10-14] MEDS: ALBUTEROL SULFATE 2.5MG/0.5ML INH NEB SOLN NEB SCH ×7 (02:54→23:09)
[2022-10-14 05:05] LABS: HEMATOCRIT 36.3 % (36.0-47.0); HEMOGLOBIN 12.4 g/dl (12.0-15.5); MEAN CORPUSCULAR HGB CONC 34.2 g/dl (32.0-36.5); MEAN CORPUSCULAR VOLUME 90.8 fl (80.0-96.0); WHITE BLOOD COUNT 3.3 10^3/uL (4.0-10.0)
[2022-10-14 05:12] LABS: PLATELET COUNT, AUTOMATED 34 10^3/uL (150-450)
[2022-10-14 05:33] LABS: ALBUMIN 1.7 G/DL (3.2-5.2); ALKALINE PHOSPHATASE 603 U/L (46-116); ALT/SGPT 149 U/L (7.0-40); AST/SGOT 80 U/L (<34); BILIRUBIN,TOTAL 1.4 MG/DL (0.3-1.2); BLOOD UREA NITROGEN 30 MG/DL (9-23); CALCIUM LEVEL 8.2 MG/DL (8.3-10.6); CARBON DIOXIDE LEVEL 22 MMOL/L (20-31); CHLORIDE LEVEL 108 MMOL/L (98-107); CREATININE FOR GFR 0.48 MG/DL (0.55-1.30); GLOMERULAR FILTRATION RATE > 60.0 (>45); GLUCOSE, FASTING 101 MG/DL (74-106); MAGNESIUM LEVEL 1.6 MG/DL (1.8-2.4); PHOSPHORUS LEVEL 3.4 MG/DL (2.4-5.1); POTASSIUM SERUM 3.2 MMOL/L (3.5-5.1); SODIUM LEVEL 140 MMOL/L (136-145); TOTAL PROTEIN 4.3 G/DL (5.7-8.2)
[2022-10-14 05:57] LABS: ABG O2 SATURATION 98.9 % (95.0-99.0)
[2022-10-14] MEDS ORDERED: MAG SULF 1GM/100ML (MAG RUN) 1 GM in IV 1 EA IV ONE (06:00)
[2022-10-14] MEDS: INSULIN LISPRO (NovoLOG) PER UNIT SC SCH ×3 (06:00→18:00)
[2022-10-14 06:03] LABS: ABG BASE EXCESS 2.1 (-2.0-2.0); ABG HCO3 21.5 MEQ/L (22.0-26.0); ABG PARTIAL PRESSURE CO2 21.2 mmHg (35.0-45.0); ABG PARTIAL PRESSURE O2 136.5 mmHg (75.0-100.0); ABG STANDARD HCO3 26.4 MEQ/L (22.0-26.0); ABG TOTAL CO2 22.1 MEQ/L (23.0-31.0)
[2022-10-14 06:06] LABS: ABG pH (ARTERIAL) 7.623 UNITS (7.350-7.450)
[2022-10-14 06:18] LABS: ANISOCYTOSIS 3+; ATYPICAL LYMPH 1 % (0-5); LYMPHOCYTES 20 % (16-44); METAMYELOCYTES 2 % (0-0); MONOCYTES 6 % (0-5); MYELOCYTES 3 % (0-0); NEUTROPHILS 65 % (28-66); PLASMA CELL 2 % (0-0); PLATELET ESTIMATE DECREASED (NORMAL)
[2022-10-14] MEDS: KCL 20MEQ IN 100ML SWI (KRUN) 20 MEQ in IV 1 EA IV SCH ×4 (08:11→09:17)
[2022-10-14] MEDS: FERROUS SULFATE 300MG/5ML UDC LIQUID GT SCH (08:12)
[2022-10-14] MEDS: CHLORHEXIDINE GLUCONATE 0.12 % 15ML UDC (PERIDEX ORAL RINSE) MT SCH ×2 (08:12→20:30)
[2022-10-14] MEDS ORDERED: DOCUSATE SOD LIQ 100MG/10ML UDC GT SCH (10:20)
[2022-10-14 14:14] LABS: VENOUS BASE EXCESS -1.8 (-2.0-2.0); VENOUS HCO3 21.1 MEQ/L (23.0-27.0); VENOUS O2 SATURATION 84.7 % (60.0-80.0); VENOUS PARTIAL PRESSURE CO2 30.7 mmHg (38.0-50.0); VENOUS PARTIAL PRESSURE O2 51.9 mmHg (30.0-50.0); VENOUS PH 7.455 UNITS (7.330-7.430); VENOUS STANDARD HCO3 22.7 MEQ/L
[2022-10-15] VITALS (27 sets, daily range): BP systolic 100–156; BP diastolic 65–93
[2022-10-15] MEDS: PANTOPRAZOLE 40MG VIAL IV SCH ×2 (00:18→12:23)
[2022-10-15] MEDS: METOPROLOL TART 12.5 MG PER 1/2 TAB PO SCH ×4 (00:18→18:00)
[2022-10-15] MEDS: ALBUTEROL SULFATE 2.5MG/0.5ML INH NEB SOLN NEB SCH ×6 (03:13→23:20)
[2022-10-15 04:53] LABS: VENOUS BASE EXCESS -0.5 (-2.0-2.0); VENOUS HCO3 22.5 MEQ/L (23.0-27.0); VENOUS O2 SATURATION 91.4 % (60.0-80.0); VENOUS PARTIAL PRESSURE CO2 32.1 mmHg (38.0-50.0); VENOUS PARTIAL PRESSURE O2 63.6 mmHg (30.0-50.0); VENOUS PH 7.464 UNITS (7.330-7.430); VENOUS STANDARD HCO3 23.9 MEQ/L; VENOUS TOTAL CO2 23.5 MEQ/L (24.0-28.0)
[2022-10-15 05:00] LABS: BASO # 0.1 10^3/uL (0.0-0.2); BASO % 1.6 % (0.0-1.0); HEMATOCRIT 35.7 % (36.0-47.0); HEMOGLOBIN 11.8 g/dl (12.0-15.5); LYMPH # 0.7 10^3/uL (1.5-5.0); LYMPH % 13.7 % (24.0-44.0); MEAN CORPUSCULAR HEMOGLOBIN 30.8 pg (27.0-33.0); MEAN CORPUSCULAR HGB CONC 33.1 g/dl (32.0-36.5); MEAN CORPUSCULAR VOLUME 93.2 fl (80.0-96.0); MONO # 0.4 10^3/uL (0.0-0.8); MONO % 7.8 % (2.0-8.0); NEUTROPHILS # 3.4 10^3/uL (1.5-8.5); NEUTROPHILS % 66.7 % (36.0-66.0); RED BLOOD COUNT 3.83 10^6/uL (4.00-5.40)
[2022-10-15 05:03] LABS: PLATELET COUNT, AUTOMATED 27 10^3/uL (150-450)
[2022-10-15 05:24] LABS: ALBUMIN 1.8 G/DL (3.2-5.2); ALKALINE PHOSPHATASE 534 U/L (46-116); ALT/SGPT 125 U/L (7.0-40); AST/SGOT 57 U/L (<34); BILIRUBIN,TOTAL 1.1 MG/DL (0.3-1.2); BLOOD UREA NITROGEN 34 MG/DL (9-23); CALCIUM LEVEL 7.9 MG/DL (8.3-10.6); CARBON DIOXIDE LEVEL 23 MMOL/L (20-31); CHLORIDE LEVEL 105 MMOL/L (98-107); CREATININE FOR GFR 0.46 MG/DL (0.55-1.30); GLOMERULAR FILTRATION RATE > 60.0 (>45); GLUCOSE, FASTING 161 MG/DL (74-106); POTASSIUM SERUM 3.3 MMOL/L (3.5-5.1); SODIUM LEVEL 138 MMOL/L (136-145); TOTAL PROTEIN 4.4 G/DL (5.7-8.2)
[2022-10-15] MEDS ORDERED: KCL 20MEQ IN 100ML SWI (KRUN) 20 MEQ in IV 1 EA IV ONE ×2 (06:00)
[2022-10-15] MEDS: INSULIN LISPRO (NovoLOG) PER UNIT SC SCH ×4 (06:31→18:00)
[2022-10-15] MEDS: CHLORHEXIDINE GLUCONATE 0.12 % 15ML UDC (PERIDEX ORAL RINSE) MT SCH (09:00)
[2022-10-15] MEDS: FERROUS SULFATE 300MG/5ML UDC LIQUID GT SCH (09:02)
[2022-10-15] MEDS: LIDOCAINE VISCOUS 2% SOLN 15ML UDC SSP PRN ×2 (12:23→19:56)
[2022-10-15 12:58] LABS: VENOUS BASE EXCESS -0.5 (-2.0-2.0); VENOUS HCO3 22.8 MEQ/L (23.0-27.0); VENOUS O2 SATURATION 86.5 % (60.0-80.0); VENOUS PARTIAL PRESSURE CO2 32.9 mmHg (38.0-50.0); VENOUS PARTIAL PRESSURE O2 52.3 mmHg (30.0-50.0); VENOUS PH 7.458 UNITS (7.330-7.430); VENOUS STANDARD HCO3 23.9 MEQ/L; VENOUS TOTAL CO2 23.8 MEQ/L (24.0-28.0)
[2022-10-15] MEDS: ACYCLOVIR 500 MG in D5W MINI-BAG PLUS 100 ML IV SCH (20:23)
[2022-10-16] VITALS (25 sets, daily range): BP systolic 101–148; BP diastolic 65–96; O2SAT 96
[2022-10-16] MEDS: PANTOPRAZOLE 40MG VIAL IV SCH ×2 (00:06→12:54)
[2022-10-16] MEDS: ACYCLOVIR 500 MG in D5W MINI-BAG PLUS 100 ML IV SCH ×3 (02:11→19:37)
[2022-10-16] MEDS: ALBUTEROL SULFATE 2.5MG/0.5ML INH NEB SOLN NEB SCH ×6 (03:05→23:06)
[2022-10-16 04:45] LABS: VENOUS BASE EXCESS 0.2 (-2.0-2.0); VENOUS HCO3 23.8 MEQ/L (23.0-27.0); VENOUS O2 SATURATION 95.5 % (60.0-80.0); VENOUS PARTIAL PRESSURE CO2 35.1 mmHg (38.0-50.0); VENOUS PARTIAL PRESSURE O2 80.3 mmHg (30.0-50.0); VENOUS STANDARD HCO3 24.7 MEQ/L; VENOUS TOTAL CO2 24.9 MEQ/L (24.0-28.0)
[2022-10-16 04:51] LABS: BASO % 0.8 % (0.0-1.0); HEMATOCRIT 32.3 % (36.0-47.0); HEMOGLOBIN 10.6 g/dl (12.0-15.5); LYMPH # 0.6 10^3/uL (1.5-5.0); LYMPH % 11.9 % (24.0-44.0); MEAN CORPUSCULAR HEMOGLOBIN 30.9 pg (27.0-33.0); MEAN CORPUSCULAR HGB CONC 32.8 g/dl (32.0-36.5); MEAN CORPUSCULAR VOLUME 94.2 fl (80.0-96.0); MONO # 0.4 10^3/uL (0.0-0.8); MONO % 6.9 % (2.0-8.0); NEUTROPHILS # 3.9 10^3/uL (1.5-8.5); NEUTROPHILS % 74.7 % (36.0-66.0); RED BLOOD COUNT 3.43 10^6/uL (4.00-5.40); WHITE BLOOD COUNT 5.2 10^3/uL (4.0-10.0)
[2022-10-16 04:52] LABS: PLATELET COUNT, AUTOMATED 31 10^3/uL (150-450)
[2022-10-16 05:14] LABS: ALBUMIN 1.9 G/DL (3.2-5.2); ALKALINE PHOSPHATASE 425 U/L (46-116); ALT/SGPT 93 U/L (7.0-40); AST/SGOT 49 U/L (<34); BILIRUBIN,TOTAL 1.1 MG/DL (0.3-1.2); BLOOD UREA NITROGEN 26 MG/DL (9-23); CALCIUM LEVEL 8.3 MG/DL (8.3-10.6); CARBON DIOXIDE LEVEL 25 MMOL/L (20-31); CHLORIDE LEVEL 107 MMOL/L (98-107); CREATININE FOR GFR 0.42 MG/DL (0.55-1.30); GLOMERULAR FILTRATION RATE > 60.0 (>45); GLUCOSE, FASTING 135 MG/DL (74-106); POTASSIUM SERUM 3.4 MMOL/L (3.5-5.1); SODIUM LEVEL 138 MMOL/L (136-145); TOTAL PROTEIN 4.8 G/DL (5.7-8.2)
[2022-10-16] MEDS: METOPROLOL TART 12.5 MG PER 1/2 TAB PO SCH ×4 (05:19→18:00)
[2022-10-16] MEDS: INSULIN LISPRO (NovoLOG) PER UNIT SC SCH ×4 (05:20→18:18)
[2022-10-16 07:20] LABS: VENOUS BASE EXCESS -1.8 (-2.0-2.0); VENOUS O2 SATURATION 88.6 % (60.0-80.0); VENOUS PARTIAL PRESSURE O2 57.4 mmHg (30.0-50.0); VENOUS PH 7.428 UNITS (7.330-7.430); VENOUS STANDARD HCO3 22.8 MEQ/L
[2022-10-16] MEDS: FERROUS SULFATE 300MG/5ML UDC LIQUID GT SCH (08:58)
[2022-10-16] MEDS ORDERED: FUROSEMIDE 20MG/2ML VIAL IV ONE (09:45)
[2022-10-16] MEDS ORDERED: KCL 10MEQ/100ML SWI (KRUN) 10 MEQ in IV 1 EA IV ONE (10:00)
[2022-10-16] MEDS: LIDOCAINE VISCOUS 2% SOLN 15ML UDC SSP PRN ×3 (14:16→20:48)
[2022-10-16 15:23] LABS: BLOOD UREA NITROGEN 23 MG/DL (9-23); CALCIUM LEVEL 8.2 MG/DL (8.3-10.6); CARBON DIOXIDE LEVEL 28 MMOL/L (20-31); CHLORIDE LEVEL 105 MMOL/L (98-107); CREATININE FOR GFR 0.45 MG/DL (0.55-1.30); GLOMERULAR FILTRATION RATE > 60.0 (>45); GLUCOSE, FASTING 124 MG/DL (74-106); MAGNESIUM LEVEL 1.5 MG/DL (1.8-2.4); POTASSIUM SERUM 3.1 MMOL/L (3.5-5.1); SODIUM LEVEL 139 MMOL/L (136-145)
[2022-10-16] MEDS: MAG SULF 1GM/100ML (MAG RUN) 1 GM in IV 1 EA IV SCH ×2 (15:44→16:44)
[2022-10-16] MEDS ORDERED: FAT EMULSION IV 250 ML IV ONE (18:00)
[2022-10-16] MEDS ORDERED: KCL 20MEQ IN 100ML SWI (KRUN) 20 MEQ in IV 1 EA IV ONE ×2 (18:00)
[2022-10-16] MEDS ORDERED: AMINO AC/ELECTROLYTE/DEX/CALC 2,000 ML IV SCH (18:00)
[2022-10-17] VITALS (24 sets, daily range): BP systolic 109–177; BP diastolic 61–102; O2SAT 92
[2022-10-17 00:20] LABS: BLOOD UREA NITROGEN 23 MG/DL (9-23); CALCIUM LEVEL 8.2 MG/DL (8.3-10.6); CARBON DIOXIDE LEVEL 28 MMOL/L (20-31); CHLORIDE LEVEL 105 MMOL/L (98-107); CREATININE FOR GFR 0.37 MG/DL (0.55-1.30); GLOMERULAR FILTRATION RATE > 60.0 (>45); GLUCOSE, FASTING 203 MG/DL (74-106); MAGNESIUM LEVEL 1.6 MG/DL (1.8-2.4); SODIUM LEVEL 138 MMOL/L (136-145)
[2022-10-17] MEDS: INSULIN LISPRO (NovoLOG) PER UNIT SC SCH ×4 (01:22→18:18)
[2022-10-17] MEDS: KCL 20MEQ IN 100ML SWI (KRUN) 20 MEQ in IV 1 EA IV SCH ×6 (01:23→04:37)
[2022-10-17] MEDS: PANTOPRAZOLE 40MG VIAL IV SCH ×2 (01:23→12:04)
[2022-10-17] MEDS: ACYCLOVIR 500 MG in D5W MINI-BAG PLUS 100 ML IV SCH ×3 (02:26→18:17)
[2022-10-17] MEDS: ALBUTEROL SULFATE 2.5MG/0.5ML INH NEB SOLN NEB SCH ×6 (03:25→23:15)
[2022-10-17] MEDS: LIDOCAINE VISCOUS 2% SOLN 15ML UDC SSP PRN (04:08)
[2022-10-17] MEDS: METOPROLOL TART 12.5 MG PER 1/2 TAB PO SCH ×4 (05:59→18:00)
[2022-10-17 06:44] LABS: VENOUS BASE EXCESS 1.1 (-2.0-2.0); VENOUS HCO3 24.9 MEQ/L (23.0-27.0); VENOUS O2 SATURATION 88.4 % (60.0-80.0); VENOUS PARTIAL PRESSURE CO2 36.6 mmHg (38.0-50.0); VENOUS PARTIAL PRESSURE O2 55.6 mmHg (30.0-50.0); VENOUS PH 7.451 UNITS (7.330-7.430); VENOUS SITE NOT GIVEN; VENOUS STANDARD HCO3 25.3 MEQ/L
[2022-10-17 06:52] LABS: BASO % 0.6 % (0.0-1.0); HEMATOCRIT 30.4 % (36.0-47.0); HEMOGLOBIN 9.9 g/dl (12.0-15.5); LYMPH # 0.6 10^3/uL (1.5-5.0); LYMPH % 12.1 % (24.0-44.0); MEAN CORPUSCULAR HEMOGLOBIN 30.7 pg (27.0-33.0); MEAN CORPUSCULAR HGB CONC 32.6 g/dl (32.0-36.5); MEAN CORPUSCULAR VOLUME 94.4 fl (80.0-96.0); MONO # 0.3 10^3/uL (0.0-0.8); NEUTROPHILS # 3.6 10^3/uL (1.5-8.5); NEUTROPHILS % 74.3 % (36.0-66.0); RED BLOOD COUNT 3.22 10^6/uL (4.00-5.40); WHITE BLOOD COUNT 4.9 10^3/uL (4.0-10.0)
[2022-10-17 06:55] LABS: PLATELET COUNT, AUTOMATED 32 10^3/uL (150-450)
[2022-10-17 07:17] LABS: ALBUMIN 1.6 G/DL (3.2-5.2); ALKALINE PHOSPHATASE 347 U/L (46-116); ALT/SGPT 77 U/L (7.0-40); AST/SGOT 46 U/L (<34); BILIRUBIN,TOTAL 0.7 MG/DL (0.3-1.2); BLOOD UREA NITROGEN 24 MG/DL (9-23); CALCIUM LEVEL 8.2 MG/DL (8.3-10.6); CARBON DIOXIDE LEVEL 26 MMOL/L (20-31); CHLORIDE LEVEL 105 MMOL/L (98-107); CREATININE FOR GFR 0.32 MG/DL (0.55-1.30); GLOMERULAR FILTRATION RATE > 60.0 (>45); GLUCOSE, FASTING 286 MG/DL (74-106); MAGNESIUM LEVEL 1.5 MG/DL (1.8-2.4); POTASSIUM SERUM 4.2 MMOL/L (3.5-5.1); SODIUM LEVEL 137 MMOL/L (136-145); TOTAL PROTEIN 4.3 G/DL (5.7-8.2)
[2022-10-17] MEDS ORDERED: FUROSEMIDE 20MG/2ML VIAL IV ONE (08:05)
[2022-10-17] MEDS: FERROUS SULFATE 300MG/5ML UDC LIQUID GT SCH (08:28)
[2022-10-17] MEDS ORDERED: MAG SULF 1GM/100ML (MAG RUN) 1 GM in IV 1 EA IV ONE (09:20)
[2022-10-17] MEDS ORDERED: hydrALAZINE 20MG/ML 1ML VIAL IV ONE (14:15)
[2022-10-17] MEDS ORDERED: AMINO AC/ELECTROLYTE/DEX/CALC 2,000 ML IV SCH (18:00)
[2022-10-17] MEDS ORDERED: FAT EMULSION IV 250 ML IV ONE (18:00)
[2022-10-17] MEDS ORDERED: hydrALAZINE 20MG/ML 1ML VIAL IV PRN (20:00)
[2022-10-17] MEDS: propofoL 1,000 MG in IV 1 EA IV SCH ×2 (20:05→20:35)
[2022-10-17] MEDS ORDERED: MIDAZOLAM 100MG/100ML-0.9%NACL 100 MG in IV 1 EA IV SCH (20:05)
[2022-10-17] MEDS: CHLORHEXIDINE GLUCONATE 0.12 % 15ML UDC (PERIDEX ORAL RINSE) MT SCH (21:00)
[2022-10-17 22:25] LABS: ABG BASE EXCESS 3.8 (-2.0-2.0); ABG HCO3 25.6 MEQ/L (22.0-26.0); ABG O2 SATURATION 99.4 % (95.0-99.0); ABG PARTIAL PRESSURE CO2 29.9 mmHg (35.0-45.0); ABG PARTIAL PRESSURE O2 440.5 mmHg (75.0-100.0); ABG STANDARD HCO3 27.9 MEQ/L (22.0-26.0); ABG TOTAL CO2 26.6 MEQ/L (23.0-31.0); ABG pH (ARTERIAL) 7.551 UNITS (7.350-7.450)
[2022-10-17] MEDS ORDERED: fentaNYL 100 MCG/2 ML INJECTION IV ONE (22:45)
[2022-10-18] VITALS (10 sets, daily range): BP systolic 85–127; BP diastolic 55–90
[2022-10-18 00:17] LABS: ABG BASE EXCESS 4.2 (-2.0-2.0); ABG HCO3 26.1 MEQ/L (22.0-26.0); ABG O2 SATURATION 99.1 % (95.0-99.0); ABG PARTIAL PRESSURE CO2 30.3 mmHg (35.0-45.0); ABG PARTIAL PRESSURE O2 165.1 mmHg (75.0-100.0); ABG STANDARD HCO3 28.3 MEQ/L (22.0-26.0); ABG pH (ARTERIAL) 7.553 UNITS (7.350-7.450)
[2022-10-18] MEDS: PANTOPRAZOLE 40MG VIAL IV SCH (01:32)
[2022-10-18] MEDS: ACYCLOVIR 500 MG in D5W MINI-BAG PLUS 100 ML IV SCH (01:32)
[2022-10-18] MEDS: INSULIN LISPRO (NovoLOG) PER UNIT SC SCH ×3 (01:33→12:00)
[2022-10-18] MEDS: METOPROLOL TART 12.5 MG PER 1/2 TAB PO SCH ×2 (01:34→05:18)
[2022-10-18] MEDS: ALBUTEROL SULFATE 2.5MG/0.5ML INH NEB SOLN NEB SCH ×3 (03:38→12:00)
[2022-10-18 05:12] LABS: BASO % 1.1 % (0.0-1.0); HEMATOCRIT 30.3 % (36.0-47.0); LYMPH # 0.4 10^3/uL (1.5-5.0); LYMPH % 11.6 % (24.0-44.0); MEAN CORPUSCULAR HEMOGLOBIN 30.5 pg (27.0-33.0); MEAN CORPUSCULAR VOLUME 92.4 fl (80.0-96.0); MONO # 0.2 10^3/uL (0.0-0.8); MONO % 5.7 % (2.0-8.0); NEUTROPHILS # 2.8 10^3/uL (1.5-8.5); NEUTROPHILS % 76.2 % (36.0-66.0); RED BLOOD COUNT 3.28 10^6/uL (4.00-5.40); WHITE BLOOD COUNT 3.7 10^3/uL (4.0-10.0)
[2022-10-18 05:15] LABS: PLATELET COUNT, AUTOMATED 31 10^3/uL (150-450)
[2022-10-18 05:36] LABS: ALBUMIN 1.9 G/DL (3.2-5.2); ALKALINE PHOSPHATASE 324 U/L (46-116); ALT/SGPT 69 U/L (7.0-40); AST/SGOT 40 U/L (<34); BILIRUBIN,TOTAL 0.8 MG/DL (0.3-1.2); BLOOD UREA NITROGEN 23 MG/DL (9-23); CALCIUM LEVEL 8.7 MG/DL (8.3-10.6); CARBON DIOXIDE LEVEL 27 MMOL/L (20-31); CHLORIDE LEVEL 104 MMOL/L (98-107); CREATININE FOR GFR 0.32 MG/DL (0.55-1.30); GLOMERULAR FILTRATION RATE > 60.0 (>45); GLUCOSE, FASTING 251 MG/DL (74-106); MAGNESIUM LEVEL 1.4 MG/DL (1.8-2.4); POTASSIUM SERUM 3.4 MMOL/L (3.5-5.1); SODIUM LEVEL 136 MMOL/L (136-145)
[2022-10-18 05:47] LABS: ABG BASE EXCESS 0.9 (-2.0-2.0); ABG PARTIAL PRESSURE CO2 24.6 mmHg (35.0-45.0); ABG PARTIAL PRESSURE O2 81.2 mmHg (75.0-100.0); ABG STANDARD HCO3 25.3 MEQ/L (22.0-26.0); ABG TOTAL CO2 22.7 MEQ/L (23.0-31.0); ABG pH (ARTERIAL) 7.569 UNITS (7.350-7.450)
[2022-10-18] MEDS ORDERED: KCL 10MEQ/100ML SWI (KRUN) 10 MEQ in IV 1 EA IV ONE (07:50)
[2022-10-18] MEDS ORDERED: ALBUTEROL SULFATE 2.5MG/0.5ML INH NEB SOLN NEB SCH (08:00)
[2022-10-18] MEDS: CHLORHEXIDINE GLUCONATE 0.12 % 15ML UDC (PERIDEX ORAL RINSE) MT SCH (08:41)
[2022-10-18] MEDS ORDERED: MIDAZOLAM INJ 2MG/2ML VIAL IV PRN (09:15)
[2022-10-18] MEDS ORDERED: FENTANYL DRIP LOCK BOX KEY 1 EACH XX PRN (09:15)
[2022-10-18] MEDS ORDERED: MAG SULF 1GM/100ML (MAG RUN) 1 GM in IV 1 EA IV ONE (09:15)
[2022-10-18] MEDS ORDERED: fentaNYL CITRATE/NaCl 1,000 MCG in IV 1 EA IV SCH (09:15)
[2022-10-18] MEDS ORDERED: MORPHINE 2 MG/ML 1ML VIAL IV PRN ×2 (10:55→12:55)
[2022-10-18] MEDS ORDERED: ACETAMINOPHEN 650MG SUPP PR PRN (10:55)
[2022-10-18] MEDS ORDERED: SCOPOLAMINE 1MG TRANSDERMAL PATCH TOP PRN (10:55)
[2022-10-18] MEDS ORDERED: LORazepam 2 MG/ML 1ML VIAL IV PRN (10:55)
[2022-10-18] MEDS ORDERED: ONDANSETRON 4MG 2ML VIAL IV PRN (10:55)
[2022-10-18] MEDS ORDERED: MORPHINE 2 MG/ML 1ML VIAL IV ONE (12:25)
== END 2022-10-18 13:03 | disposition expired | DRG 870 ==
LOC: M ED 16:00 → M ED INP 19:00 → M ICU 19:45
PROVIDERS: ADMIT Internal Medicine; ATTEND Internal Medicine
PROC: 5A1955Z Respiratory Ventilation, Greater than 96 Consecutive Hours (ICD-10-PCS; principal; 2022-10-03)
PROC: 0BH17EZ Insertion of Endotracheal Airway into Trachea, Via Natural or Artificial Opening (ICD-10-PCS; 2022-10-03)
PROC: 30233N1 Transfusion of Nonautologous Red Blood Cells into Peripheral Vein, Percutaneous Approach (ICD-10-PCS; 2022-10-03)
PROC: 02HV33Z Insertion of Infusion Device into Superior Vena Cava, Percutaneous Approach (ICD-10-PCS; 2022-10-04)
PROC: B246ZZZ Ultrasonography of Right and Left Heart (ICD-10-PCS; 2022-10-04)
PROC: 30233R1 Transfusion of Nonautologous Platelets into Peripheral Vein, Percutaneous Approach (ICD-10-PCS; 2022-10-04)
PROC: 30233J1 Transfusion of Nonautologous Serum Albumin into Peripheral Vein, Percutaneous Approach (ICD-10-PCS; 2022-10-05)
PROC: 30233K1 Transfusion of Nonautologous Frozen Plasma into Peripheral Vein, Percutaneous Approach (ICD-10-PCS; 2022-10-06)
PROC: 009U3ZX Drainage of Spinal Canal, Percutaneous Approach, Diagnostic (ICD-10-PCS; 2022-10-13)
DX: A41.50 Gram-negative sepsis, unspecified (principal); R65.21 Severe sepsis with septic shock; J96.01 Acute respiratory failure with hypoxia; G93.41 Metabolic encephalopathy; K72.00 Acute and subacute hepatic failure without coma; E43 Unspecified severe protein-calorie malnutrition; D61.818 Other pancytopenia; K51.90 Ulcerative colitis, unspecified, without complications; C77.2 Secondary and unspecified malignant neoplasm of intra-abdominal lymph nodes; E87.20 Acidosis, unspecified; B37.0 Candidal stomatitis; D68.59 Other primary thrombophilia; K55.9 Vascular disorder of intestine, unspecified; I50.20 Unspecified systolic (congestive) heart failure; G72.81 Critical illness myopathy; N39.0 Urinary tract infection, site not specified; E87.3 Alkalosis; B00.2 Herpesviral gingivostomatitis and pharyngotonsillitis; Z51.5 Encounter for palliative care; Z66 Do not resuscitate; C54.1 Malignant neoplasm of endometrium; J45.909 Unspecified asthma, uncomplicated; G89.29 Other chronic pain; I11.0 Hypertensive heart disease with heart failure; K21.9 Gastro-esophageal reflux disease without esophagitis; E78.5 Hyperlipidemia, unspecified; E83.51 Hypocalcemia; E83.42 Hypomagnesemia; E87.6 Hypokalemia; B96.1 Klebsiella pneumoniae [K. pneumoniae] as the cause of diseases classified elsewhere; R73.9 Hyperglycemia, unspecified; K62.7 Radiation proctitis; E16.2 Hypoglycemia, unspecified; Z88.0 Allergy status to penicillin; Z91.030 Bee allergy status; Z79.01 Long term (current) use of anticoagulants; Z79.891 Long term (current) use of opiate analgesic; Z79.899 Other long term (current) drug therapy; Z93.6 Other artificial openings of urinary tract status; Z90.49 Acquired absence of other specified parts of digestive tract; Z86.718 Personal history of other venous thrombosis and embolism; Z90.710 Acquired absence of both cervix and uterus; Z90.722 Acquired absence of ovaries, bilateral